=== PATIENT | female | born 1970 | race Caucasian/White ===

== ENCOUNTER 2016-08-09 11:46 | Observation (INO) | payer BC ==
[2016-08-09] MEDS ORDERED: HYDROmorphone 1 MG/ML 1 ML SYRINGE IVP STA (13:01)
[2016-08-09] MEDS ORDERED: ONDANSETRON 4 MG/2 ML VIAL IVP STA (13:01)
--- NOTE | 2016-08-09 13:03 | ED ---
General Adult HPI - General Chief complaint: Neck Pain/Injury Stated complaint: chest pain, neck pain Source: patient Mode of arrival: wheelchair Limitations: no limitations - History of Present Illness Initial comments: 46-year-old female with past medical history of Ulcerative colitis, kidney stones, right bundle branch block, bowel resection, cholecystectomy, hysterectomy, and ileostomy presented for evaluation of neck pain, left chest and back pain, and lower back pain. She states that she's been having these symptoms for the last 3 weeks and has had multiple evaluations by with her primary care physician and seen at [facility] without having a definitive diagnosis being obtained. She states her symptoms are worsened by movement and there are no alleviating factors. She describes itching in her chest as a pressure but the pain in her neck that goes down her arm is more shortness. She states her symptoms will wax and wane and that they're associated dizziness , lightheadedness, abdominal pain, nausea. She has not taken any medications to improve this although she was recently started on lisinopril for hypertension. - Related Data Home Medications Medication Instructions Recorded Confirmed Cetirizine HCl [Zyrtec] 10 mg PO DAILY 10/03/13 08/09/16 Albuterol Inhaler [Ventolin Hfa 1 - 2 puff INHALATION RT-Q6H PRN 04/28/14 Inhaler] Budesonide-Formot 160-4.5 Mcg 2 puff INHALATION RT-DAILY 04/28/14 08/09/16 [Symbicort 160-4.5 Mcg Inhaler] Fluticasone Propionate [Flonase 2 spray EA NOSTRIL DAILY PRN 06/18/14 08/09/16 Allergy Relief] Pravastatin Sodium [Pravachol] 40 mg PO DAILY 10/12/14 08/09/16 HYDROcodone/APAP 7.5-325MG [[place] 1 tab PO BID PRN 08/09/16 08/09/16 7.5-325] Lisinopril [Prinivil] 10 mg PO DAILY 08/09/16 08/09/16 Methocarbamol [Robaxin-750] 750 mg PO TID PRN 08/09/16 08/09/16 Multivitamin [Multivitamins Adult 2 tab PO DAILY 08/09/16 08/09/16 Gummies] Omeprazole [PriLOSEC] 20 mg PO DAILY 08/09/16 08/09/16 Ranitidine HCl [Zantac] 300 mg PO DAILY 08/09/16 08/09/16 metFORMIN HCL [Glucophage] 500 mg PO DAILY 08/09/16 08/09/16 Allergies Allergy/AdvReac Type Severity Reaction Status Date / Time adhesive Allergy Rash/Hives/ Verified 08/09/16 12:40 blisters aspirin Allergy SWELLING Verified 08/09/16 12:40 OF LIPS ibuprofen [From Motrin] Allergy ULCER IN J Verified 08/09/16 12:40 POUCH,DR TOLD NOT TO TAKE Iodinated Contrast Media - Allergy Dyspnea Verified 08/09/16 12:40 Oral and [Iodinated Contrast Media - IV Dye] lorazepam [From Ativan] Allergy Unknown Verified 08/09/16 12:40 Sulfa (Sulfonamide Allergy Rash/Hives Verified 08/09/16 12:40 Antibiotics) Review of Systems ROS Statement: Those systems with pertinent positive or pertinent negative responses have been documented in the HPI. ROS Other: All systems not noted in ROS Statement are negative. Constitutional: Denies: fever, chills Eyes: Denies: eye pain, eye discharge, vision change ENT: Denies: ear pain, throat pain, dental pain Respiratory: Denies: cough, dyspnea, wheezes Cardiovascular: Reports: chest pain. Denies: palpitations, dyspnea on exertion , orthopnea, edema, syncope, paroxysmal nocturnal dyspnea Gastrointestinal: Reports: abdominal pain, nausea, vomiting. Denies: diarrhea, constipation, hematemesis Genitourinary: Denies: urgency, dysuria, frequency, hematuria, discharge Musculoskeletal: Reports: back pain. Denies: arthralgia, myalgia Skin: Denies: rash, lesions Neurological: Denies: headache, weakness Psychiatric: Denies: anxiety, depression Hematological/Lymphatic: Denies: easy bleeding, easy bruising Past Medical History Additional Past Medical History / Comment(s): ulcerative colitis, kidney stones , right bundle branch block. Neck pain History of Any Multi-Drug Resistant Organisms: MRSA Date of last positivie culture/infection: december 2013 MDRO Source:: skin Past Surgical History: Bowel Resection, Cholecystectomy, Hysterectomy Additional Past Surgical History / Comment(s): j-pouch,right knee arthroscopy, ileostomy Past Anesthesia/Blood Transfusion Reactions: No Reported Reaction Past Psychological History: No Psychological Hx Reported Smoking Status: Former smoker Past Alcohol Use History: Occasional Past Drug Use History: None Reported - Past Family History Father Family Medical History: No Reported History Mother Family Medical History: Cancer General Exam Limitations: no limitations General appearance: alert, in distress Head exam: Present: atraumatic, normocephalic, normal inspection Eye exam: Present: normal appearance, PERRL, EOMI. Absent: scleral icterus, conjunctival injection, periorbital swelling ENT exam: Present: normal exam, mucous membranes moist Neck exam: Present: normal inspection. Absent: tenderness, meningismus, lymphadenopathy Respiratory exam: Present: normal lung sounds bilaterally. Absent: respiratory distress, wheezes, rales, rhonchi, stridor Cardiovascular Exam: Present: regular rate, normal rhythm, normal heart sounds. Absent: systolic murmur, diastolic murmur, rubs, gallop, clicks GI/Abdominal exam: Present: soft, tenderness (mild, diffuse), normal bowel sounds. Absent: distended, guarding, rebound, rigid Rectal exam: Present: deferred Extremities exam: Present: normal inspection, full ROM, normal capillary refill. Absent: tenderness, pedal edema, joint swelling, calf tenderness Back exam: Present: normal inspection Neurological exam: Present: alert, oriented X3, CN II-XII intact Psychiatric exam: Present: normal affect, normal mood Skin exam: Present: warm, dry, intact, normal color. Absent: rash Course Vital Signs 08/09/16 08/09/16 08/09/16 11:51 14:59 16:17 Temperature 97.7 F 98 F Pulse Rate 102 H 98 90 Respiratory 20 18 18 Rate Blood Pressure 139/81 120/65 120/66 O2 Sat by Pulse 98 100 99 Oximetry EKG Findings - EKG Comments: EKG Findings:: Sinus tachycardia with a ventricular rate of 104, [place] interval 134 , QRS 80, QT/QTC 332/436 Medical Decision Making - Medical Decision Making 46-year-old female presenting for evaluation of left neck pain with radiation to her left arm, chest, back, and from her lower back down her leg. She has been having these symptoms for the last few weeks and has been evaluated by her primary care physician and outside hospitals with no definitive diagnosis but also no significant cardiac work up. On physical examination she has clear lung sounds bilaterally and equal pulses bilaterally with a normal cardiac exam. Abdomen is soft and only mildly tender to palpation throughout all quadrants. Negative Spurling's test but she describes the pain is radicular going on her left arm. Concern for cardiac etiology and will obtain chest x-ray, EKG, labs and provide IV fluids. Aspirin will be withheld as she states she has an ALLERGY. Labs were significant for a lactic acidosis of 3.0 but otherwise no significant abnormalities. CT abdomen and pelvis showed extensive postsurgical changes with nonobstructing bilateral nephrolithiasis. Hepatomegaly and fatty protrusion of the liver also seen with degenerative changes within the spine. Chest x-ray showed no acute cardiopulmonary process. The patient was reevaluated and stated she was feeling much better but that her symptoms are starting to return. She is informed of results and that she would be admitted for further treatment and evaluation with likely stress test and echo in the morning. The patient agreed with this plan of care. Dr. Krishnamurthy was updated on the status of the patient and accepted the admission without further request. Admission order placed and bed request submitted. - Lab Data Result diagrams: 08/09/16 13:15 08/09/16 13:15 Lab Results 08/09/16 08/09/16 08/09/16 Range/Units 13:15 13:15 13:15 WBC 9.0 (3.8-10.6) k/uL RBC 4.41 (3.80-5.40) m/uL Hgb 14.0 (11.4-16.0) gm/dL Hct 42.2 (34.0-46.0) % MCV 95.6 (80.0-100.0) fL MCH 31.8 (25.0-35.0) pg MCHC 33.2 (31.0-37.0) g/dL RDW 12.9 (11.5-15.5) % Plt Count 312 (150-450) k/uL Neutrophils % 64 % Lymphocytes % 26 % Monocytes % 6 % Eosinophils % 1 % Basophils % 0 % Neutrophils # 5.8 (1.3-7.7) k/uL Lymphocytes # 2.4 (1.0-4.8) k/uL Monocytes # 0.5 (0-1.0) k/uL Eosinophils # 0.1 (0-0.7) k/uL Basophils # 0.0 (0-0.2) k/uL Sodium 143 (137-145) mmol/L Potassium 4.4 (3.5-5.1) mmol/L Chloride 104 (98-107) mmol/L Carbon Dioxide 22 (22-30) mmol/L Anion Gap 17 mmol/L BUN 14 (7-17) mg/dL Creatinine 0.60 (0.52-1.04) mg/dL Est GFR (MDRD) Af Amer >60 (>60 ml/min/1.73 sqM) Est GFR (MDRD) Non-Af >60 (>60 ml/min/1.73 sqM) Glucose 100 H (74-99) mg/dL Plasma Lactic Acid Dino 3.0 H* (0.7-2.0) mmol/L Calcium 10.2 (8.4-10.2) mg/dL Total Bilirubin 0.9 (0.2-1.3) mg/dL AST 41 H (14-36) U/L ALT 27 (9-52) U/L Alkaline Phosphatase 133 H (38-126) U/L Troponin I (0.000-0.034) ng/mL NT-Pro-B Natriuret Pep pg/mL Total Protein 8.7 H (6.3-8.2) g/dL Albumin 4.6 (3.5-5.0) g/dL Lipase 113 (23-300) U/L 08/09/16 08/09/16 Range/Units 13:15 13:15 WBC (3.8-10.6) k/uL RBC (3.80-5.40) m/uL Hgb (11.4-16.0) gm/dL Hct (34.0-46.0) % MCV (80.0-100.0) fL MCH (25.0-35.0) pg MCHC (31.0-37.0) g/dL RDW (11.5-15.5) % Plt Count (150-450) k/uL Neutrophils % % Lymphocytes % % Monocytes % % Eosinophils % % Basophils % % Neutrophils # (1.3-7.7) k/uL Lymphocytes # (1.0-4.8) k/uL Monocytes # (0-1.0) k/uL Eosinophils # (0-0.7) k/uL Basophils # (0-0.2) k/uL Sodium (137-145) mmol/L Potassium (3.5-5.1) mmol/L Chloride (98-107) mmol/L Carbon Dioxide (22-30) mmol/L Anion Gap mmol/L BUN (7-17) mg/dL Creatinine (0.52-1.04) mg/dL Est GFR (MDRD) Af Amer (>60 ml/min/1.73 sqM) Est GFR (MDRD) Non-Af (>60 ml/min/1.73 sqM) Glucose (74-99) mg/dL Plasma Lactic Acid Dino (0.7-2.0) mmol/L Calcium (8.4-10.2) mg/dL Total Bilirubin (0.2-1.3) mg/dL AST (14-36) U/L ALT (9-52) U/L Alkaline Phosphatase (38-126) U/L Troponin I <0.012 (0.000-0.034) ng/mL NT-Pro-B Natriuret Pep <11 pg/mL Total Protein (6.3-8.2) g/dL Albumin (3.5-5.0) g/dL Lipase (23-300) U/L Disposition Clinical Impression: Chest pain, Cervical radiculopathy Disposition: ADMITTED IP TO THIS [facility] Referrals: Yiemy Monson MD [Primary Care Provider] - 1-2 days Decision to Admit Reason: Admit from EC Decision Date: 08/09/16 Decision Time: 16:00
[2016-08-09 13:28] LABS: Basophils % (A) 0 %; CH 32.7; CHCM 34.3; Eosinophils # (A) 0.1 k/uL (0-0.7); Eosinophils % (A) 1 %; HCT 42.2 % (34.0-46.0); HDW 2.65; Luc # (Auto) 0.27; Luc % (Auto) 3; Lymphocytes # (A) 2.4 k/uL (1.0-4.8); Lymphocytes % (A) 26 %; MCH 31.8 pg (25.0-35.0); MCHC 33.2 g/dL (31.0-37.0); MCV 95.6 fL (80.0-100.0); Mean Platelet Volume 6.5; Monocytes # (A) 0.5 k/uL (0-1.0); Monocytes % (A) 6 %; Neutrophils # (A) 5.8 k/uL (1.3-7.7); Neutrophils % (A) 64 %; RBC 4.41 m/uL (3.80-5.40); RDW 12.9 % (11.5-15.5); WBC (Perox) 8.18
[2016-08-09 13:42] LABS: ALT 27 U/L (9-52); AST 41 U/L (14-36); Alkaline Phosphatase 133 U/L (38-126); Anion Gap 17 mmol/L; Blood Urea Nitrogen 14 mg/dL (7-17); Calcium 10.2 mg/dL (8.4-10.2); Carbon Dioxide 22 mmol/L (22-30); Chloride 104 mmol/L (98-107); Glucose 100 mg/dL (74-99); Non-African American GFR(MDRD) >60 (>60 ml/min/1.73 sqM); Potassium 4.4 mmol/L (3.5-5.1); Sodium 143 mmol/L (137-145); Total Bilirubin 0.9 mg/dL (0.2-1.3); Total Protein 8.7 g/dL (6.3-8.2)
--- NOTE | 2016-08-09 14:09 | XR ---
EXAMINATION TYPE: XR chest 2V DATE OF EXAM: 08/09/2016 2:03 PM COMPARISON: 05/10/13 HISTORY: Chest pain TECHNIQUE: Frontal and lateral views of the chest are obtained. FINDINGS: There is no focal air space opacity. No evidence for pnuemothorax.No pleural effusion. The cardiac silhouette size is within normal limits. The osseous structures are grossly intact. IMPRESSION: 1. No acute cardiopulmonary process.
--- NOTE | 2016-08-09 14:30 | CT ---
EXAMINATION TYPE: CT abdomen pelvis wo con DATE OF EXAM: 08/09/2016 1:56 PM COMPARISON: Prior study dated 06/18/2014. HISTORY: Patient complains of midline abdominal burning and pain. Epigastric to umbilicus. CT DLP: 1151 mGycm Automated exposure control for dose reduction was used. FINDINGS: There is dependent atelectasis within the lungs. There is no pleural or pericardial fluid. The heart is not enlarged. Within the abdomen, the liver is enlarged measuring 22.4 cm. The liver is fatty infiltrated. The gall bladder is been removed. The spleen is unremarkable. Both adrenal glands appear normal. There is a 2 mm, nonobstructing calculus in the anterior lower pole calyx of the left kidney. There i s a larger, 5.8 mm nonobstructing calculus in the mid polar region of the right kidney as well as a s econd 5.6 mm calculus which appears to be in the left renal pelvis. There is no hydronephrosis. Limited views of the pancreas are unremarkable. There is no significant retroperitoneal, iliac or inguinal adenopathy. There've been several bowel resections. There is a defunctioning ostomy in the right upper quadrant. There is a right paracentral anterior abdominal wall hernia with some bowel peaking into it. The mout h measures 3.4 cm. There is no bowel dilatation. There is no evidence of free fluid or free air. There is degenerative d isc disease and hypertrophic spondylosis within the spine. No bony destructive lesion is seen. IMPRESSION: 1. EXTENSIVE POSTSURGICAL CHANGE. 2. NONOBSTRUCTING BILATERAL NEPHROLITHIASIS. 3. HEPATOMEGALY AND FATTY INFILTRATION OF THE LIVER. 4. DEGENERATIVE CHANGES WITHIN THE SPINE.
[2016-08-09] MEDS ORDERED: SODIUM CHLORIDE 0.9% 1,000 ML IV ONE (14:33)
[2016-08-09] MEDS ORDERED: NALOXONE 0.4 MG/ML 1 ML VIAL IV PRN (15:54)
[2016-08-09] MEDS ORDERED: FLUTICASONE 50MCG/SPRAY NASAL 16GM EA NOSTRIL PRN (15:56)
[2016-08-09] MEDS: MORPHINE SULFATE 4 MG/ML SYRINGE IV PRN ×2 (16:14→20:12)
[2016-08-09] MEDS: ONDANSETRON 4 MG/2 ML VIAL IVP PRN (16:14)
[2016-08-09 17:40] LABS: Glucose,Whole Blood 104 mg/dL (75-99)
[2016-08-09 20:06] LABS: Glucose,Whole Blood 104 mg/dL (75-99)
[2016-08-09] MEDS: SODIUM CHLORIDE 0.9% 1,000 ML IV SCH (20:14)
[2016-08-10] MEDS ORDERED: ALPRAZolam 0.25 MG TAB PO PRN (00:08)
[2016-08-10] MEDS ORDERED: TEMAZEPAM 15 MG CAP PO PRN (00:08)
[2016-08-10] MEDS ORDERED: ALBUTEROL NEBULIZED 2.5 MG/3 ML INHALATION PRN (00:15)
[2016-08-10] MEDS: HYDROmorphone 1 MG/ML 1 ML SYRINGE IVP PRN ×5 (00:35→19:25)
[2016-08-10] MEDS: ONDANSETRON 4 MG/2 ML VIAL IVP PRN ×2 (00:36→15:32)
[2016-08-10] MEDS: PIPERACILLIN-TAZOBACTAM 3.375 GM in DEXTROSE/WATER 1 50ML.BAG IVPB SCH ×3 (00:47→15:36)
[2016-08-10 01:06] LABS: Creatine Kinase 55 U/L (30-135)
[2016-08-10 01:19] LABS: Creatine Kinase MB 0.3 ng/mL (0.0-2.4); Troponin I <0.012 ng/mL (0.000-0.034)
[2016-08-10] MEDS ORDERED: ALBUTEROL INHALER 60 PUFF/8 GM INHALER INHALATION SCH (02:00)
[2016-08-10 03:43] LABS: Appearance,Urine Clear (Clear); Bacteria,Urine Rare /hpf; Bilirubin,Urine Negative (Negative); Glucose,Urine (UA) Negative (Negative); Ketones,Urine Negative (Negative); Leukocyte Esterase,Urine Negative (Negative); Mucus,Urine Few /hpf; Nitrite,Urine Negative (Negative); PH, Urine 5.5 (5.0-8.0); Particle Count 7295; Protein,Urine Trace (Negative); RBC,Urine 4 /hpf (0-5); Squamous Epithelial Cell,Urine 3 /hpf (0-4); UA Billing (MACRO vs. MICRO) MICRO; Urobilinogen,Urine <2.0 mg/dL (<2.0); WBC,Urine 6 /hpf (0-5)
[2016-08-10 07:08] LABS: Glucose,Whole Blood 131 mg/dL (75-99)
[2016-08-10] MEDS: SYMBICORT 160-4.5 MCG INHALER INHALATION SCH (08:44)
[2016-08-10] MEDS ORDERED: FAMOTIDINE 20 MG TAB PO SCH (09:00)
--- NOTE | 2016-08-10 09:34 | P.CRDCN ---
History of Present Illness Consult date: 08/10/16 History of present illness: This is a 46-year-old female with history of diabetes and hypercholesterolemia who is been having recurrent left upper chest pain, neck pain and also pain down the left arm intermittently. Patient also has been having issues with the blood pressure fluctuating. Apparently she has been in the emergency room to 3 times because of these symptoms. Recently she was started on antihypertensive medication. However, yesterday patient again had similar pain, which is under the left clavicle area, followed by neck pain and left arm pain. The pain increases on deep breathing. Doesn't seem to be related to movements of the arm. She does have history of cervical disc disease. Her EKGs did not reveal any acute changes. Her cardiac enzymes studies are negative. Her chest pains appear to be atypical and probably musculoskeletal. I would recommend further evaluation of the computed tomography scan of the neck of the chest. I would proceed with an Lexiscan stress test, probably on Friday to rule out underlying ischemic heart disease. Echocardiogram is already done and the results are pending at this time Review of Systems As per the chart Past Medical History Past Medical History: Asthma, Cancer, Diabetes Mellitus, GERD/Reflux, Hyperlipidemia, Hypertension, Osteoarthritis (OA), Sleep Apnea/CPAP/BIPAP Additional Past Medical History / Comment(s): ulcerative colitis, kidney stones , right bundle branch block. Neck pain History of Any Multi-Drug Resistant Organisms: MRSA Date of last positivie culture/infection: december 2013 MDRO Source:: skin Past Surgical History: Bowel Resection, Cholecystectomy, Hysterectomy Additional Past Surgical History / Comment(s): j-pouch,right knee arthroscopy, ileostomy Past Anesthesia/Blood Transfusion Reactions: No Reported Reaction Past Psychological History: No Psychological Hx Reported Additional Psychological History / Comment(s): pt lives with spouse. has no steps to navigate. pt is independant. 1 pet dog. has nebulizer, cpap machine and ostomy supplies. Smoking Status: Former smoker Past Alcohol Use History: Occasional Additional Past Alcohol Use History / Comment(s): started smoking 1987, quit 1994 smoked 1/2 ppd Past Drug Use History: None Reported - Past Family History Father Family Medical History: No Reported History Mother Family Medical History: Cancer Additional Family Medical History / Comment(s): cervical cancer Medications and Allergies Home Medications Medication Instructions Recorded Confirmed Type Cetirizine HCl [Zyrtec] 10 mg PO DAILY 10/03/13 08/09/16 History Albuterol Inhaler [Ventolin Hfa 1 - 2 puff INHALATION RT-Q6H PRN 04/28/14 History Inhaler] Budesonide-Formot 160-4.5 Mcg 2 puff INHALATION RT-DAILY 04/28/14 08/09/16 History [Symbicort 160-4.5 Mcg Inhaler] Fluticasone Propionate [Flonase 2 spray EA NOSTRIL DAILY PRN 06/18/14 08/09/16 History Allergy Relief] Pravastatin Sodium [Pravachol] 40 mg PO DAILY 10/12/14 08/09/16 History HYDROcodone/APAP 7.5-325MG [[place] 1 tab PO BID PRN 08/09/16 08/09/16 History 7.5-325] Lisinopril [Prinivil] 10 mg PO DAILY 08/09/16 08/09/16 History Methocarbamol [Robaxin-750] 750 mg PO TID PRN 08/09/16 08/09/16 History Multivitamin [Multivitamins Adult 2 tab PO DAILY 08/09/16 08/09/16 History Gummies] Omeprazole [PriLOSEC] 20 mg PO DAILY 08/09/16 08/09/16 History Ranitidine HCl [Zantac] 300 mg PO DAILY 08/09/16 08/09/16 History metFORMIN HCL [Glucophage] 500 mg PO DAILY 08/09/16 08/09/16 History Allergies Allergy/AdvReac Type Severity Reaction Status Date / Time adhesive Allergy Rash/Hives/ Verified 08/09/16 12:40 blisters aspirin Allergy SWELLING Verified 08/09/16 12:40 OF LIPS ibuprofen [From Motrin] Allergy ULCER IN J Verified 08/09/16 12:40 DR MELISA TOLD NOT TO TAKE Iodinated Contrast Media - Allergy Dyspnea Verified 08/09/16 12:40 Oral and [Iodinated Contrast Media - IV Dye] lorazepam [From Ativan] Allergy Unknown Verified 08/09/16 12:40 Sulfa (Sulfonamide Allergy Rash/Hives Verified 08/09/16 12:40 Antibiotics) Physical Exam Vitals: Vital Signs Temp Pulse Pulse Resp BP BP Pulse Ox 08/10/16 07:22 97.9 F 80 16 127/62 94 L 05/13/17 04:00 80 16 08/10/16 03:47 97.8 F 86 18 100/55 94 L 08/09/16 23:25 86 18 08/09/16 23:23 91 18 131/74 96 08/09/16 20:00 92 18 08/09/16 19:46 98.4 F 99 18 133/67 95 08/09/16 17:59 98.7 F 97 16 158/91 96 08/09/16 16:17 98 F 90 18 120/66 99 Intake and Output 08/09/16 08/10/16 08/10/16 22:59 06:59 14:59 Intake Total 400 110 Balance 400 110 Intake: Intake, IV Titration 110 Amount Piperacillin-Tazobactam 3 50 .375 gm In Dextrose/Water 1 50ml.bag @ 12.5 mls/hr IVPB Q8HR DOMI Rx#: [id number] Sodium Chloride 0.9% 1, 60 000 ml @ 20 mls/hr IV . Q24H DOMI Rx#:[id number] Oral 400 Other: # Voids 2 2 GENERAL EXAM: Patient is alert and oriented and doesn't appear to be in any acute distress HEENT: Normocephalic. Normal reaction of pupils, equal size, normal range of extraocular motion. No erythema or exudates in the throat. NECK: No masses, no nuchal rigidity. CHEST: No chest wall deformity. Mild tenderness in the left upper chest and also in the neck area LUNGS: Equal air entry with no crackles or wheeze. HEART: S1 and S2 normal with no audible mumurs or gallops. Regular rhythm, femorals equal on both sides.. ABDOMEN: No hepatosplenomegaly, normal bowel sounds, no guarding or rigidity. SKIN: No rashes CENTRAL NERVOUS SYSTEM: No focal deficits. EXTREMITIES: No cyanosis, clubbing or edema. Results 08/09/16 13:15 08/09/16 13:15 Cardiac Enzymes 08/09/16 08/10/16 Range/Units 19:16 00:39 CK-MB (CK-2) 0.3 (0.0-2.4) ng/mL Troponin I <0.012 <0.012 (0.000-0.034) ng/mL Current Medications Generic Name Dose Route Start Last Admin Trade Name Freq PRN Reason Stop Dose Admin Hydrocodone Bitart/Acetaminophen 1 each 08/10/16 00:08 [place] 5-325 PO Q6HR PRN Pain Albuterol Sulfate 2.5 mg 08/10/16 00:15 Ventolin Nebulized INHALATION RT-Q4H PRN Shortness Of Breath Or Wheezing Alprazolam 0.25 mg 08/10/16 00:08 Xanax PO TID PRN Anxiety Budesonide/Formoterol Fumarate 2 puff 08/10/16 08:00 08/10/16 08:44 Symbicort 160-4.5 Mcg Inhaler INHALATION 2 puff RT-DAILY DOMI Administration Fluticasone Propionate 2 spray 08/09/16 15:56 Flonase Nasal [place] EA NOSTRIL DAILY PRN ALLERGIES Heparin Sodium (Porcine) 5,000 unit 08/10/16 09:00 Heparin SQ Q12HR DOMI Hydromorphone HCl 0.5 mg 08/10/16 00:08 08/10/16 06:01 Dilaudid IVP 0.5 mg Q4HR PRN Administration Severe Pain Sodium Chloride 1,000 mls @ 20 mls/hr 08/09/16 16:00 08/09/16 20:14 Saline 0.9% IV Not Given .Q24H DOMI Piperacillin/Tazobactam/ 50 mls @ 12.5 mls/hr 08/10/16 00:15 08/10/16 08:01 Dextrose 3.375 gm/ IV Solution IVPB 12.5 mls/hr Q8HR DOMI Administration Lisinopril 10 mg 08/10/16 09:00 Zestril PO DAILY [facility] Loratadine 10 mg 08/10/16 09:00 Claritin PO DAILY [facility] Metformin HCl 500 mg 08/10/16 09:00 Glucophage PO DAILY [facility] Methocarbamol 750 mg 08/09/16 15:56 Robaxin PO TID PRN Pain Naloxone HCl 0.2 mg 08/09/16 15:54 Narcan IV Q2M PRN Opioid Reversal Ondansetron HCl 4 mg 08/09/16 15:54 08/10/16 00:36 Zofran IVP 4 mg Q8HR PRN Administration Nausea And Vomiting Pantoprazole Sodium 40 mg 08/10/16 07:30 Protonix PO AC-BRKFST [facility] Pravastatin Sodium 40 mg 08/10/16 09:00 Pravachol PO DAILY [facility]I Temazepam 15 mg 08/10/16 00:08 08/10/16 00:44 Restoril PO 15 mg HS PRN Administration Insomnia Intake and Output 08/09/16 08/10/16 08/10/16 22:59 06:59 14:59 Intake Total 400 110 Balance 400 110 Intake: Intake, IV Titration 110 Amount Piperacillin-Tazobactam 3 50 .375 gm In Dextrose/Water 1 50ml.bag @ 12.5 mls/hr IVPB Q8HR [facility]I Rx#: [id number] Sodium Chloride 0.9% 1, 60 000 ml @ 20 mls/hr IV . Q24H DOMI Rx#:[id number] Oral 400 Other: # Voids 2 2 EKG Interpretations (text) Sinus rhythm without any acute changes Assessment and Plan (1) Diabetes mellitus Status: Acute (2) Cervical radiculopathy Status: Acute (3) Chest pain Status: Acute (4) Hypercholesterolemia Status: Acute Plan: Her chest pains appear to be atypical. Her cardiac enzymes are negative and her EKGs are normal. Patient, however, have risk factors of diabetes and hypercholesterolemia. I'm going to schedule her for a Lexiscan stress test on Friday. Echocardiogram is already done. May need a computed tomography scan of the neck and chest to rule out any muscular skeletal issues. Further recommendations depend upon the findings on the above tests.
[2016-08-10] MEDS: LISINOPRIL 10 MG TAB PO SCH (10:48)
[2016-08-10] MEDS: PRAVASTATIN SODIUM 40 MG TAB PO SCH (10:48)
[2016-08-10] MEDS: metFORMIN 500 MG TAB PO SCH (10:48)
[2016-08-10] MEDS: PANTOPRAZOLE 40 MG TABLET PO SCH (10:48)
[2016-08-10] MEDS: LORATADINE 10 MG TAB PO SCH (10:48)
[2016-08-10] MEDS: HEPARIN SODIUM,PORCINE 5,000 UNIT/ML 1 ML VIAL SQ SCH ×2 (10:50→20:22)
--- NOTE | 2016-08-10 11:51 | P.GSCN ---
History of Present Illness Consult date: 08/10/16 Reason for Consult: Abnormal computed tomography scan ventral hernia. Abdominal discomfort. Requesting physician: Hilario Krishnamurthy History of present illness: Thank you very much Dr. Krishnamurthy for asking us to see this patient. She is a 46- year-old white female who was admitted with the chest neck and back pain now for 3 weeks off and on. She has had workup the as an outpatient by primary care physician as well as the emergency room at [facility]. She presented again with increasing symptoms last night to the emergency room. Has had some associated lightheadedness dizziness and some upper abdominal discomfort. No definite nausea or vomiting but some nausea. Computed tomography scan was unremarkable except for a parastomal hernia that was not incarcerated. No evidence of obstruction or dilated bowel loops. Patient has had multiple abdominal surgeries including multiple bowel resections in ileostomy as well as a J pouch procedure for ulcerative colitis. Also has had hysterectomy and cholecystectomy. Chronic back pain diabetes mellitus hypertension hypercholesterolemia asthma. Also reflux disease. Medications as listed. ALLERGIES multiple ALLERGIES as listed. System review as above. Ileostomy is functioning well on a daily basis. No fever or chills. No urinary symptoms currently. Social history patient denies smoking. The drinks alcohol very occasionally. On examination the patient is awake alert in no acute distress. With a BMI of 44.1. Color and hydration is satisfactory temperature is normal vitals are good. The color and hydration is satisfactory. Heart regular rhythm abdomen is obese. The midline incision noted. Has a ileostomy in the right upper quadrant area. This is functioning well. No definite palpable hernia but difficult to evaluate because of perforated. Certainly no tenderness in this area. May have some mild epigastric tenderness. No guarding or rebound or rigidity no mass or organomegaly and no hernias in the midline on the left side. [employer] grossly intact. Impression ventral parastomal hernia by computed tomography scan asymptomatic. No evidence of obstruction. No significant intra-abdominal pathology to explain her chest in the back and neck pain. Recommendation continue her normal diet. Further workup per medicine. Nothing surgical to offer at this time. Past Medical History Past Medical History: Asthma, Cancer, Diabetes Mellitus, GERD/Reflux, Hyperlipidemia, Hypertension, Osteoarthritis (OA), Sleep Apnea/CPAP/BIPAP Additional Past Medical History / Comment(s): ulcerative colitis, kidney stones , right bundle branch block. Neck pain History of Any Multi-Drug Resistant Organisms: MRSA Year Discovered:: december 2013 MDRO Source:: skin Past Surgical History: Bowel Resection, Cholecystectomy, Hysterectomy Additional Past Surgical History / Comment(s): j-pouch,right knee arthroscopy, ileostomy Past Anesthesia/Blood Transfusion Reactions: No Reported Reaction Past Psychological History: No Psychological Hx Reported Additional Psychological History / Comment(s): pt lives with spouse. has no steps to navigate. pt is independant. 1 pet dog. has nebulizer, cpap machine and ostomy supplies. Smoking Status: Former smoker Past Alcohol Use History: Occasional Additional Past Alcohol Use History / Comment(s): started smoking 1987, quit 1994 smoked 1/2 ppd Past Drug Use History: None Reported - Past Family History Father Family Medical History: No Reported History Mother Family Medical History: Cancer Additional Family Medical History / Comment(s): cervical cancer Medications and Allergies Home Medications Medication Instructions Recorded Confirmed Type Cetirizine HCl [Zyrtec] 10 mg PO DAILY 10/03/13 08/09/16 History Albuterol Inhaler [Ventolin Hfa 1 - 2 puff INHALATION RT-Q6H PRN 04/28/14 History Inhaler] Budesonide-Formot 160-4.5 Mcg 2 puff INHALATION RT-DAILY 04/28/14 08/09/16 History [Symbicort 160-4.5 Mcg Inhaler] Fluticasone Propionate [Flonase 2 spray EA NOSTRIL DAILY PRN 06/18/14 08/09/16 History Allergy Relief] Pravastatin Sodium [Pravachol] 40 mg PO DAILY 10/12/14 08/09/16 History HYDROcodone/APAP 7.5-325MG [[place] 1 tab PO BID PRN 08/09/16 08/09/16 History 7.5-325] Lisinopril [Prinivil] 10 mg PO DAILY 08/09/16 08/09/16 History Methocarbamol [Robaxin-750] 750 mg PO TID PRN 08/09/16 08/09/16 History Multivitamin [Multivitamins Adult 2 tab PO DAILY 08/09/16 08/09/16 History Gummies] Omeprazole [PriLOSEC] 20 mg PO DAILY 08/09/16 08/09/16 History Ranitidine HCl [Zantac] 300 mg PO DAILY 08/09/16 08/09/16 History metFORMIN HCL [Glucophage] 500 mg PO DAILY 08/09/16 08/09/16 History Allergies Allergy/AdvReac Type Severity Reaction Status Date / Time adhesive Allergy Rash/Hives/ Verified 08/09/16 12:40 blisters aspirin Allergy SWELLING Verified 08/09/16 12:40 OF LIPS ibuprofen [From Motrin] Allergy ULCER IN J Verified 08/09/16 12:40 POUCH,DR TOLD NOT TO TAKE Iodinated Contrast Media - Allergy Dyspnea Verified 08/09/16 12:40 Oral and [Iodinated Contrast Media - IV Dye] lorazepam [From Ativan] Allergy Unknown Verified 08/09/16 12:40 Sulfa (Sulfonamide Allergy Rash/Hives Verified 08/09/16 12:40 Antibiotics) Surgical - Exam Vital Signs Temp Pulse Resp BP Pulse Ox 97.7 F 102 H 20 139/81 98 08/09/16 11:51 08/09/16 11:51 08/09/16 11:51 08/09/16 11:51 08/09/16 11:51 Results - Labs 08/09/16 13:15 08/09/16 13:15 Abnormal Lab Results - Last 24 Hours (Table) 08/09/16 08/09/16 08/10/16 Range/Units 17:34 20:00 00:39 ESR 25 H (0-20) mm/hr POC Glucose (mg/dL) 104 H 104 H (75-99) mg/dL C-Reactive Protein (<10.0) mg/L Urine Protein (Negative) Urine Blood (Negative) Urine WBC (0-5) /hpf Urine Bacteria (None) /hpf Hyaline Casts (0-2) /lpf Urine Mucus (None) /hpf Urine Opiates Screen (NotDetected) U Benzodiazepines Scrn (NotDetected) 08/10/16 08/10/16 08/10/16 Range/Units 00:39 03:15 07:07 ESR (0-20) mm/hr POC Glucose (mg/dL) 131 H (75-99) mg/dL C-Reactive Protein 13.8 H (<10.0) mg/L Urine Protein Trace H (Negative) Urine Blood Trace H (Negative) Urine WBC 6 H (0-5) /hpf Urine Bacteria Rare H (None) /hpf Hyaline Casts 9 H (0-2) /lpf Urine Mucus Few H (None) /hpf Urine Opiates Screen Detected H (NotDetected) U Benzodiazepines Scrn Detected H (NotDetected)
[2016-08-10 11:55] LABS: Glucose,Whole Blood 122 mg/dL (75-99)
--- NOTE | 2016-08-10 13:38 | HP ---
DATE OF ADMISSION: 08/09/2016 CHIEF COMPLAINT: Neck pain, shoulder pain, abdominal discomfort. HISTORY OF PRESENT ILLNESS: This 46-year-old woman with a past medical of extremely complex medical issues including ulcerative colitis at the age of 19 who had a total colectomy in [facility] with J-pouch in 1994, was doing well since 5 years ago. Subsequently patient developed apparent stenosis and patient a year ago the patient underwent ileostomy. Plans for reversal have been planned at [facility] at this time. In the meanwhile, for the last several weeks, the patient has been to the emergency room at [facility] several times, at least 4 or 5 times according to her, with almost similar complaints of left shoulder pain, left neck pain, left arm pain, some tingling and numbness, and with elevated blood pressure. After the blood pressure was controlled, the patient was discharged. Because of the recurrent symptoms the patient came to [facility] and was admitted for further evaluation and treatment. The patient is reported as small like a throbbing and sharp pain, occasionally with some radiation. There is no history of fevers or rigors. No headache, loss of consciousness or seizures. The patient is also complaining of diffuse abdominal discomfort also. The patient came to [facility] for further evaluation and treatment. As mentioned earlier, the patient had obstruction and stenosis previously. CT scan of the abdomen was done and showed extensive postsurgical changes and nonobstructing bilateral hydronephrosis and hepatomegaly with fatty infiltration as well as degenerative joint disease of the spine also. There is no history of any fevers, rigors, loss of consciousness. No hematochezia or melena at this time. PAST MEDICAL HISTORY: Asthma, diabetes mellitus, GERD, hypertension, hyperlipidemia, history of DJD, history of right bundle branch block, history of MRSA, history of cholecystectomy, history of fistula in the surgical site. HOME MEDICATIONS: 1. Multivitamins 1 p.o. daily. 2. Robaxin 750 mg t.i.d. p.r.n. 3. Symbicort 4.5, 2 puffs daily. 4. Glucophage 500 mg p.o. daily. 5. Zantac 300 mg daily p.r.n. 6. Prilosec 20 mg p.o. daily. 7. Prinivil 10 mg p.o. daily. 8. Pravachol 40 mg daily. 9. [place] 7.5 b.i.d. p.r.n. 10. Flonase 2 sprays daily p.r.n. 12. Ventolin HFA 1 to 2 puffs every 6 p.r.n. ALLERGIES: ASPIRIN, IBUPROFEN, IODINATED CONTRAST, SULFA. FAMILY HISTORY: History of cervical cancer in the family. SOCIAL HISTORY: The patient gives a history of previous smoking. Occasional alcohol intake. REVIEW OF SYSTEMS: ENT: No diminishing hearing. No diminished vision. CARDIOVASCULAR: As mentioned. RESPIRATORY: No cough. GI: As mentioned earlier. : As mentioned earlier. NERVOUS SYSTEM: As mentioned earlier. MUSCULOSKELETAL: As mentioned earlier. HEMATOLOGY/ONCOLOGY: As mentioned. ENDOCRINE: As mentioned. CONSTITUTIONAL: As mentioned. DERMATOLOGY: Negative. RHEUMATOLOGIC: Negative. PHYSICAL EXAMINATION: GENERAL: Alert, oriented x3. Pulse 99, blood pressure 130/60, respirations 18, temperature 98.4, pulse ox 94% on room air. HEENT: Conjunctivae normal. Oral mucosa moist. NECK: No jugular venous distention. No carotid bruit. No lymph node enlargement. No thyroid enlargement. CARDIOVASCULAR: S1 and S2. No S3 or S4. RESPIRATORY: Breath sounds diminished at the bases. A few scattered rhonchi and expiratory wheezing. No crackles. ABDOMEN: Soft, obese, mild diffuse discomfort on palpation. No guarding. No mass palpable. Ileostomy present on right side middle. SKIN: Rashes from EKGS leads present. EXTREMITIES: No edema, no swelling. NERVOUS SYSTEM: Higher functions as mentioned. Moves all limbs equally. No focal motor or sensory deficits. LYMPHATICS: No lymph nodes palpable in the neck, axillae. SKIN: No rashes. LABS: CBC within normal limits. Glucose 100, 104. Plasma lactic acid 3. Alk phos 133. ASSESSMENT: 1. Left shoulder pain as well as an neck pain and left arm pain; rule out coronary artery disease. 2. Rule out musculoskeletal problems/issues. 3. Diffuse abdominal pain, for evaluation. 4. Elevated lactic acid; rule out abdominal sepsis. 5. History of recent ileostomy. 6. History of J-pouch stenosis. 7. History of total subcolectomy for ulcerative colitis. 8. History of asthma. 9. History of diabetes type 2. 10. Gastroesophageal reflux disease. 11. Chronic intermittent asthma. 12. Hypertension. 13. Hyperlipidemia. 14. History of degenerative joint disease. 15. History of sleep apnea, on CPAP. 16. History of nephrolithiasis. 17. History of right bundle block. 18. History of methicillin-resistant staphylococcus aureus. 19. History of bowel resection. 20. History of nicotine dependence. 21. History of chronic headaches. 22. History of obesity, body mass index of 44.1. 23. FULL CODE. RECOMMENDATIONS: In this 46-year-old woman who presented with multiple complex medical issues as mentioned. At this time I recommend to continue current medications and current treatment. Otherwise recommend rule out myocardial infarction unstable angina protocol. Otherwise closely follow with cardiology. Repeat troponins. Also recommend a 2-D echo also. Other than that, I would recommend repeat labs, including ESR and CRP and cultures. Broad-spectrum IV antibiotics will be initiated after obtaining cultures. A surgical evaluation is being requested as well as cardiology evaluation. Overall prognosis guarded because of multiple complex medical issues as mentioned earlier. Discussed with the patient at length. Further recommendations to follow. See orders for further details. DAVIDD
[2016-08-10 13:51] LABS: Hemoglobin A1C 6.1 % (4.2-6.1)
[2016-08-10] MEDS: HYDROcodone/APAP 5-325MG 1 EACH TAB PO PRN (14:29)
[2016-08-10] MEDS: SODIUM CHLORIDE 0.9% 1,000 ML IV SCH (16:56)
[2016-08-10] MEDS: METHOCARBAMOL 750 MG TAB PO PRN (17:07)
[2016-08-10 17:08] LABS: Glucose,Whole Blood 122 mg/dL (75-99)
--- NOTE | 2016-08-10 17:32 | CT ---
EXAMINATION TYPE: CT cervical spine wo con DATE OF EXAM: 08/10/2016 5:08 PM COMPARISON: NONE HISTORY: Neck pain that radiates into left shoulder and chest. CT DLP: 1406.3 mGycm Automated exposure control for dose reduction was used. TECHNIQUE: CT scan of the cervical spine is obtained without contrast, axial images are obtained, sa gittal and coronal reformatted images are also reviewed. FINDINGS: There is moderate mucosal thickening in the maxillary sinuses. The skull base is intact. Th ere is normal aeration of the mastoid air cells. There is mild straightening of the cervical spine that is probably positional. Disc spaces are normal . Posterior elements are intact. Facet joints are intact. There is no sign of a fracture. IMPRESSION: Normal CT scan of the cervical spine. Maxillary sinusitis.
--- NOTE | 2016-08-10 17:36 | CT ---
EXAMINATION TYPE: CT chest wo con DATE OF EXAM: 08/10/2016 5:08 PM COMPARISON: NONE HISTORY: Neck pain that radiates into left shoulder and chest. CT DLP: 1406.3 mGycm Automated exposure control for dose reduction was used. FINDINGS: The lungs are clear of consolidation. There is no pleural effusion. There is no evidence of a pulmona ry mass. There is mild subsegmental atelectasis at the lung bases. Heart size is normal. There is no pericardial effusion. There is no mediastinal adenopathy. There are no hilar masses. There is evidence of fatty infiltration of the liver. Bony thorax appears intact. IMPRESSION: FATTY INFILTRATION OF THE LIVER. NEGATIVE CT SCAN OF THE CHEST. RIGHT UPPER QUADRANT STOMA NOTED WITH PARASTOMAL HERNIA THAT IS EVIDENT ALSO ON THE CT SCAN YESTERDAY.
[2016-08-10 20:13] LABS: Glucose,Whole Blood 138 mg/dL (75-99)
[2016-08-10] MEDS ORDERED: HYDROcodone/APAP 5-325MG 1 EACH TAB ONE (21:50)
[2016-08-11] MEDS: PIPERACILLIN-TAZOBACTAM 3.375 GM in DEXTROSE/WATER 1 50ML.BAG IVPB SCH ×4 (01:15→23:32)
[2016-08-11] MEDS: HYDROmorphone 1 MG/ML 1 ML SYRINGE IVP PRN ×5 (01:36→20:58)
[2016-08-11 06:37] LABS: Basophils % (A) 0 %; CH 32.7; CHCM 33.5; Eosinophils % (A) 1 %; HCT 39.3 % (34.0-46.0); HDW 2.59; HGB 13.1 gm/dL (11.4-16.0); Luc # (Auto) 0.16; Luc % (Auto) 3; Lymphocytes # (A) 1.8 k/uL (1.0-4.8); Lymphocytes % (A) 34 %; MCH 32.5 pg (25.0-35.0); MCHC 33.2 g/dL (31.0-37.0); MCV 97.9 fL (80.0-100.0); Mean Platelet Volume 6.6; Monocytes # (A) 0.4 k/uL (0-1.0); Monocytes % (A) 8 %; Neutrophils # (A) 2.8 k/uL (1.3-7.7); Neutrophils % (A) 54 %; RBC 4.02 m/uL (3.80-5.40); RDW 12.9 % (11.5-15.5); WBC 5.2 k/uL (3.8-10.6)
[2016-08-11 07:02] LABS: Glucose,Whole Blood 124 mg/dL (75-99)
[2016-08-11 07:21] LABS: Anion Gap 12 mmol/L; Blood Urea Nitrogen 22 mg/dL (7-17); Calcium 9.8 mg/dL (8.4-10.2); Carbon Dioxide 25 mmol/L (22-30); Chloride 104 mmol/L (98-107); Glucose 116 mg/dL (74-99); Non-African American GFR(MDRD) >60 (>60 ml/min/1.73 sqM); Potassium 4.9 mmol/L (3.5-5.1); Sodium 141 mmol/L (137-145)
[2016-08-11] MEDS: SYMBICORT 160-4.5 MCG INHALER INHALATION SCH (07:39)
[2016-08-11] MEDS: LORATADINE 10 MG TAB PO SCH (08:16)
[2016-08-11] MEDS: LISINOPRIL 10 MG TAB PO SCH (08:16)
[2016-08-11] MEDS: metFORMIN 500 MG TAB PO SCH (08:16)
[2016-08-11] MEDS: PRAVASTATIN SODIUM 40 MG TAB PO SCH (08:16)
[2016-08-11] MEDS: PANTOPRAZOLE 40 MG TABLET PO SCH (08:16)
[2016-08-11] MEDS: HEPARIN SODIUM,PORCINE 5,000 UNIT/ML 1 ML VIAL SQ SCH ×2 (08:16→21:56)
--- NOTE | 2016-08-11 09:21 | ECHOF ---
Referral Reason:chf MEASUREMENTS -------- HEIGHT: 165.1 cm WEIGHT: 120.2 kg BP: 130/600 IVSd: 1.1 cm (0.6 - 1.1) LVIDd: 4.0 cm (3.9 - 5.3) LVPWd: 0.9 cm (0.6 - 1.1) LVIDs: 2.6 cm LA Diam: 3.3 cm (2.7 - 3.8) RVIDd: 3.0 cm (< 3.3) Ao Diam: 3.3 cm (2.0 - 3.7) LA Diam: 3.3 cm (2.7 - 3.8) AV Cusp: 1.5 cm (1.5 - 2.6) EPSS: 0.5 cm MV E Shane: 0.70 m/s MV DecT: 179 ms MV A Shane: 0.71 m/s MV E/A Ratio: 0.99 RAP: 5.00 mmHg RVSP: 14.95 mmHg MV EF SLOPE: 69.01 mm/s (70 - 150) MV EXCURSION: 16.40 mm (> 18.000) FINDINGS -------- Sinus rhythm. This was a technically adequate study. Morbid Obesity There is borderline concentric left ventricular hypertrophy. Overall left ventricular systolic function is normal with, an EF between 55 - 60 %. The right ventricle is normal in size. The left atrial size is normal. The right atrial size is normal. The aortic valve is trileaflet, and appears structurally normal. No aortic stenosis or regurgitation. Mild mitral regurgitation is present. Mild tricuspid regurgitation present. There is no evidence of pulmonary hypertension. The right ventricular systolic pressure, as measured by Doppler, is 14.95mmHg. There is no pulmonic regurgitation present. The aortic root size is normal. There is no pericardial effusion. CONCLUSIONS -------- 1. There is borderline concentric left ventricular hypertrophy. 2. Overall left ventricular systolic function is normal with, an EF between 55 - 60 %. 3. Mild mitral regurgitation is present. 4. Mild tricuspid regurgitation present. 5. There is no evidence of pulmonary hypertension. 6. The right ventricular systolic pressure, as measured by Doppler, is 14.95mmHg. [employer]NAGER: Raquel Najera RDCS
--- NOTE | 2016-08-11 11:23 | P.PN ---
Progress Note - Text The Patient the better today she was able to get some sleep last night the with the hypnotic. Denies any abdominal pain. Chest occasional slight nausea. Tolerated diet. Continues with the neck and upper chest pain. On examination she is afebrile. Vitals are stable. Abdomen is somewhat obese. Ileostomy is functioning well. Well-healed midline scar. No significant tenderness. No mass or organomegaly. Impression history of the inflammatory bowel disease status post the subtotal colectomy with the ileoanal pouch with stenosis and subsequent the ileostomy. History of per small bowel fistulas. Parastomal hernia asymptomatic at this time. Nothing surgical in the abdomen at this time. Recommendation continued medical management. CT of the neck did show some maxillary sinusitis.
[2016-08-11 11:51] LABS: Glucose,Whole Blood 124 mg/dL (75-99)
--- NOTE | 2016-08-11 13:49 | PN ---
DATE OF SERVICE: 08/10/2016 This 46-year-old woman who was admitted with left shoulder pain as well as neck pain also had significant abdominal pain also. The patient also had elevated lactic acid. Empirically treated with antibiotics. Patient improved significantly. Cardiology and as well as Surgery is following the patient closely. The patient complains of neck pain also. The patient is complaining of low chest pain also at this time. PAST MEDICAL HISTORY: Reviewed. REVIEW OF SYSTEMS: CARDIOVASCULAR: As mentioned earlier. RESPIRATORY: As mentioned earlier. GI: As mentioned earlier. : No dysuria. NERVOUS SYSTEM: No numbness or weakness. Current medications are reviewed and include: 1. [place] 5 mg q.6 p.r.n. 2. Ventolin 2.5 q.4 p.r.n. 3. Xanax 0.25 t.i.d. 5. Symbicort 160/4.5, 2 puffs b.i.d. 6. Flonase. 7. Heparin 5000 subcu b.i.d. 8. Dilaudid 0.5 mg q.4. 9. Zestril 10 mg daily. 10. Claritin 10 mg daily. 11. Glucophage 500 mg p.o. daily. 12. Robaxin 75 mg t.i.d. 13. Narcan 0.2 q.2 p.r.n. 14. Zofran 4 mg q.8 p.r.n. 15. Protonix 40 mg with breakfast. 16. Zosyn 3.275 IV q.8 17. Pravachol 40 mg p.o. daily. 19. Restoril 50 mg q.h.s. p.r.n. PHYSICAL EXAMINATION: Patient is alert and oriented x2. Pulse is 86, blood pressure 106/58 respirations 18, temperature 98.8, pulse ox 94% on room air. HEENT: Conjunctivae normal. NECK: No jugular venous distention. CARDIOVASCULAR: S1 and S2. RESPIRATORY: Breath sounds diminished at the bases. A few scattered rhonchi. No crackles. ABDOMEN: Soft, mild diffuse discomfort. Ileostomy present. No guarding. No rigidity. No mass palpable. LEGS: No edema, no swelling. NERVOUS SYSTEM: Higher function as mentioned. Moves all four limbs. No focal motor deficits. LYMPHATIC: No lymphadenopathy in the neck, axillae or groin. SKIN: No ulcer, rash or bleeding. LABS: UA noted. Drug screen positive for opiates and benzodiazepines. Otherwise, glucose 131 and 122 and ESR is 25 and CRP is 13.8. The normal is less than 10. ASSESSMENT: 1. Left shoulder pain as well as neck pain and left arm pain rule out coronary artery disease, rule out musculoskeletal problems. 2. Diffuse abdominal pain for evaluation. 3. Elevated lactic acid, rule out abdominal sepsis. 4. History of recent ileostomy. 5. History J post stenosis. 6. History of subtotal colectomy for ulcerative colitis. 7. History of asthma. 8. History of diabetes type 2. 9. History of gastroesophageal reflux disease. 10. Chronic intermittent asthma. 11. Hypertension, essential. 12. Hyperlipidemia. 13. History of degenerative joint disease. 14. History of sleep apnea on CPAP. 15. Possible cervical degenerative joint disease. 16. History of nephrolithiasis. 17. History of right bundle block. 18. History of methicillin-resistant Staphylococcus aureus. 19. History of bowel resection. 20. History of nicotine dependence. 21. History of chronic headaches. 22. History of obesity, body mass index of 44.1. 23. FULL CODE. RECOMMENDATIONS AND DISCUSSION: I recommend to continue the current medications, continue monitoring and symptomatic treatment. I recommend CT scan of the chest and as well as neck also. Otherwise, continue to monitor. Repeat lactic acid also. Further recommendations to follow. MTDD
[2016-08-11] MEDS: ONDANSETRON 4 MG/2 ML VIAL IVP PRN (14:30)
[2016-08-11 16:50] LABS: Glucose,Whole Blood 102 mg/dL (75-99)
[2016-08-11] MEDS: SODIUM CHLORIDE 0.9% 1,000 ML IV SCH (17:15)
[2016-08-11 20:16] LABS: Glucose,Whole Blood 121 mg/dL (75-99)
[2016-08-11] MEDS: METHOCARBAMOL 750 MG TAB PO PRN (22:36)
[2016-08-11] MEDS: HYDROcodone/APAP 5-325MG 1 EACH TAB PO PRN (23:40)
[2016-08-12 05:13] VITALS: RESP 18
[2016-08-12] MEDS: ONDANSETRON 4 MG/2 ML VIAL IVP PRN (05:22)
[2016-08-12] MEDS: HYDROmorphone 1 MG/ML 1 ML SYRINGE IVP PRN (05:22)
[2016-08-12 07:03] LABS: Glucose,Whole Blood 120 mg/dL (75-99)
[2016-08-12] MEDS: SYMBICORT 160-4.5 MCG INHALER INHALATION SCH (07:43)
[2016-08-12 08:11] LABS: Basophils % (A) 0 %; CH 32.9; Eosinophils % (A) 1 %; HCT 39.4 % (34.0-46.0); HDW 2.65; HGB 13.2 gm/dL (11.4-16.0); Luc # (Auto) 0.21; Luc % (Auto) 4; Lymphocytes # (A) 1.5 k/uL (1.0-4.8); Lymphocytes % (A) 30 %; MCH 32.5 pg (25.0-35.0); MCHC 33.4 g/dL (31.0-37.0); MCV 97.3 fL (80.0-100.0); Mean Platelet Volume 6.3; Monocytes # (A) 0.3 k/uL (0-1.0); Monocytes % (A) 7 %; Neutrophils # (A) 2.9 k/uL (1.3-7.7); Neutrophils % (A) 58 %; RBC 4.05 m/uL (3.80-5.40); RDW 12.8 % (11.5-15.5); WBC (Perox) 4.76
--- NOTE | 2016-08-12 08:52 | PN ---
DATE OF SERVICE: 08/11/2016 This 46-year-old woman was admitted with left shoulder pain also had abdominal pain. The patient also has extensive history of ulcerative colitis and surgery also. Some of the features also suggestive of Crohn's disease also. Patient . No chest pain, no palpitations. No fever. On exam, alert and oriented x3. Pulse is 87, blood pressure 119/64, respirations 18, temperature 98.2, pulse ox 94% on room air. HEENT: Conjunctivae normal. NECK: No jugular venous distention. CARDIOVASCULAR: S1 and S2, muffled. RESPIRATORY: Breath sounds diminished at the bases. No rhonchi, no crackles. ABDOMEN: Soft, nontender. No mass palpable. LEGS: No edema, no swelling. NERVOUS SYSTEM: No focal motor deficits. LAB INVESTIGATIONS: CBC within normal limits. Glucose 116. ASSESSMENT: 1. Left shoulder pain as well as neck pain and left arm pain, rule out coronary artery disease and rule out musculoskeletal pain. 2. Diffuse abdominal pain for evaluation. 3. Elevated lactic acid present on admission, improved. 4. History of recent ileostomy. 5. History of J pouch stenosis. 6. History of subtotal colectomy for ulcerative colitis. 7. History of asthma. 8. Possible Crohn's disease. 9. History of diabetes mellitus type 2. 10. History of gastroesophageal reflux disease. 11. Chronic intermittent asthma. 12. Hypertension, essential. 13. Hyperlipidemia. 14. History of degenerative joint disease. 15. History of sleep apnea on CPAP. 16. Cervical degenerative joint disease. 17. History of nephrolithiasis. 18. History of right bundle branch block on electrocardiogram. 19. History of methicillin-resistant Staphylococcus aureus. 20. History of bowel resection. 21. History of nicotine dependence. 22. History of chronic headaches. 23. Obesity with body mass index of 44.1. 24. FULL CODE. RECOMMENDATIONS AND DISCUSSION: I recommend to continue the current medications, continue monitoring and symptomatic treatment. Will continue the rest of the medications. Cardiology is performing a stress test tomorrow. Closely follow with surgery. I would also recommend follow-up closely with [facility] regarding the possibility of Crohn's disease versus ulcerative colitis because of the multiple symptomatology and the possibility of fistulous formation also. The patient may be candidate for if proven to be one of those cases. Otherwise, prognosis guarded. Further recommendations to follow. MTDD
[2016-08-12] MEDS ORDERED: REGADENOSON 0.4 MG/5 ML SYRINGE IV ONE (09:00)
[2016-08-12] MEDS ORDERED: AMINOPHYLLINE 500 MG/20 ML VIAL IV PRN (09:00)
[2016-08-12 09:11] LABS: Anion Gap 11 mmol/L; Blood Urea Nitrogen 17 mg/dL (7-17); Calcium 9.5 mg/dL (8.4-10.2); Carbon Dioxide 25 mmol/L (22-30); Chloride 104 mmol/L (98-107); Glucose 120 mg/dL (74-99); Non-African American GFR(MDRD) >60 (>60 ml/min/1.73 sqM); Potassium 4.6 mmol/L (3.5-5.1); Sodium 140 mmol/L (137-145)
[2016-08-12] MEDS: PIPERACILLIN-TAZOBACTAM 3.375 GM in DEXTROSE/WATER 1 50ML.BAG IVPB SCH (10:34)
[2016-08-12] MEDS: metFORMIN 500 MG TAB PO SCH (10:35)
[2016-08-12] MEDS: PANTOPRAZOLE 40 MG TABLET PO SCH (10:35)
[2016-08-12] MEDS: LORATADINE 10 MG TAB PO SCH (10:35)
[2016-08-12] MEDS: LISINOPRIL 10 MG TAB PO SCH (10:35)
[2016-08-12] MEDS: HEPARIN SODIUM,PORCINE 5,000 UNIT/ML 1 ML VIAL SQ SCH (10:35)
[2016-08-12] MEDS: PRAVASTATIN SODIUM 40 MG TAB PO SCH (10:36)
[2016-08-12] MEDS: HYDROcodone/APAP 5-325MG 1 EACH TAB PO PRN (10:50)
--- NOTE | 2016-08-12 11:30 | NM ---
EXAMINATION TYPE: NM stress lexiscan cardiolite DATE OF EXAM: 08/12/2016 11:13 AM COMPARISON: NONE HISTORY: 46-year-old female with chest pain TECHNIQUE: After the intravenous administration of 10.98 mCi Tc 99m Sestamibi - Cardiolite resting S PECT images acquired 45 minutes post injection. The patient received 0.4mg Lexiscan, 27.5 mCi Tc 99m Sestamibi - Stress images obtained [address] injection FINDINGS: During the exam, the technologist makes note of shortness of breath and chest pain which eventually r esolves. Review of stress and rest SPECT images demonstrates no distinct perfusion abnormality. Gated analysi s shows normal wall motion with an estimated left ventricular ejection fraction of 62 %. TID is calc ulated at 1.07, within normal limits. IMPRESSION: No scintigraphic evidence for reversible ischemia.
[2016-08-12 11:42] VITALS: BP 119/76; PULSE 91; TEMP 98.5
[2016-08-12 12:15] LABS: Glucose,Whole Blood 150 mg/dL (75-99)
--- NOTE | 2016-08-12 12:52 | EST ---
DATE OF SERVICE: 08/12/16. AGE: 46Y SEX: F HT: 5'5" WT: 265 lbs. Protocol Arron: Other: X Stage: Dur. of Exercise: *Heart Rate Blood Pressure *Rest: 96 Rest: 142/69 * *Max. Achieved: 121 Maximum BP: 172/96 85% PMHR: 147 100% PMHR: 173 *METS: INDICATIONS: MEDICATIONS: The test is being done to evaluate chest pains. Stress data: Baseline EKG showed sinus rhythm with normal SD interval and QRS duration. A standard dose of Lexiscan was infused. EKGs did not reveal any significant changes from the baseline. FINAL IMPRESSION: 1. Negative Lexiscan stress test. 2. Report on the nuclear images to begin with radiologist.
--- NOTE | 2016-08-14 19:15 | DS ---
DATE OF ADMISSION: 08/09/2016 DATE OF DISCHARGE: 08/12/2016 FINAL DIAGNOSES: 1. Left shoulder pain as well as neck and left arm pain, possibly musculoskeletal, with a negative stress test. 2. Diffuse abdominal pain, improved. 3. Elevated lactic acid, present on admission, improved. 4. History of recent ileostomy. 5. History of J pouch stenosis. 6. History of subtotal colectomy for possible ulcerative colitis. 7. History of asthma. 8. Rule out Crohn's disease. 9. History of diabetes mellitus, type 2. 10. History of gastroesophageal reflux disease. 11. History of chronic intermittent asthma. 12. Hypertension, essential. 13. Hyperlipidemia. 14. History of degenerative joint disease. 15. Sleep apnea, on CPAP. 16. Cervical degenerative joint disease. 17. History of nephrolithiasis. 18. History of right bundle branch block on EKG. 19. History of methicillin-resistant Staphylococcus aureus. 20. History of bowel resection. 21. History of nicotine dependence. 22. History of chronic headaches. 23. Obesity; body mass index 44.1. 24. FULL CODE. DISCHARGE DISPOSITION: The patient will be discharged in stable condition with guarded prognosis. Discharge cleared by multiple consultants. HISTORY OF PRESENT ILLNESS: This 46-year-old woman with a past medical history of multiple medical problems, as mentioned earlier, being followed by Dr. Monson in the outpatient setting, was admitted with left shoulder pain, neck pain, arm pain as well as abdominal pain. Patient was treated symptomatically. Antibiotics were also given. The patient had a stress test by Cardiology and improved significantly. On exam, vitals are stable. CARDIOVASCULAR SYSTEM: S1, S2 muffled. ABDOMEN: Soft, non-tender. NERVOUS SYSTEM: No focal deficit. Surgery saw the patient. Multiple CT scans were also done, including cervical spine and chest CT scan. I recommend that the patient follow up closely with Dr. Monson as well as patient's primary senior principal in [facility] regarding the above-mentioned multiple medical issues D/C meds please refer to medication reconcialation.. MTDD
== END 2016-08-12 15:58 | disposition home or self-care (01) ==
LOC: EC 11:46 → 3OBS 15:54 → 3SUR 19:33 → 3OBS 08-12 07:48
PROVIDERS: ADMIT Hospitalist; ATTEND Hospitalist
DX: M25.512 Pain in left shoulder (principal); M54.2 Cervicalgia; M79.602 Pain in left arm; R10.10 Upper abdominal pain, unspecified; E87.2 Acidosis; R07.89 Other chest pain; Z98.0 Intestinal bypass and anastomosis status; J45.20 Mild intermittent asthma, uncomplicated; E11.9 Type 2 diabetes mellitus without complications; K21.9 Gastro-esophageal reflux disease without esophagitis; I10 Essential (primary) hypertension; E78.5 Hyperlipidemia, unspecified; M47.22 Other spondylosis with radiculopathy, cervical region; Z99.89 Dependence on other enabling machines and devices; G47.30 Sleep apnea, unspecified; Z87.442 Personal history of urinary calculi; I45.10 Unspecified right bundle-branch block; Z86.14 Personal history of Methicillin resistant Staphylococcus aureus infection; Z87.891 Personal history of nicotine dependence; R51 Headache; E78.00 Pure hypercholesterolemia, unspecified; E66.9 Obesity, unspecified; K43.5 Parastomal hernia without obstruction or gangrene; Z68.41 Body mass index [BMI] 40.0-44.9, adult; Z79.51 Long term (current) use of inhaled steroids; Z79.899 Other long term (current) drug therapy; Z79.84 Long term (current) use of oral hypoglycemic drugs; Z88.6 Allergy status to analgesic agent; Z91.041 Radiographic dye allergy status; Z88.2 Allergy status to sulfonamides; Z88.8 Allergy status to other drugs, medicaments and biological substances; Z91.048 Other nonmedicinal substance allergy status; Z80.49 Family history of malignant neoplasm of other genital organs; G89.29 Other chronic pain
CPT/HCPCS: 96375 ×3; 96365; 96366 ×3; 96372 ×3; 96376 ×5; 96361; 99285; 36415; 94640 ×4; 93005; 93017; 93306; 83880; 80053; 80048 ×2; 85652; 83036; 82550; 82553; 83605 ×2; 83690; 84484 ×2; 85025 ×3; 86140; 81001; 87040; 80306; 87086; 71020; 72125; 71250; 74176; 78452; G0378 ×4; A9500; J2270; J1644 ×3; J2405 ×4; J1170 ×4; J2543 ×3; J2785

== ENCOUNTER 2016-09-30 07:24 | Day surgery (SDC) | payer BC ==
[2016-09-26 11:08] VITALS: BMI 43.1
[~2016-09-30 07:24] MED LIST: LACTATED RINGERS 1,000 ML IV SCH
[2016-09-30 07:47] VITALS: RESP 20; TEMP 97.1
[2016-09-30 07:51] LABS: Glucose,Whole Blood 127 mg/dL (75-99)
[2016-09-30] MEDS ORDERED: PROPOFOL 10 MG/ML 20 ML VIAL IV ONE (08:45)
[2016-09-30 09:12] VITALS: PULSE 86
[2016-09-30 09:31] VITALS: BP 130/82
--- NOTE | 2016-09-30 16:13 | P.PCN ---
Date of Procedure: 09/30/16 Preoperative Diagnosis: Postoperative Diagnosis: Procedure(s) Performed: Procedure: Lower endoscopy and biopsy. 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 Postoperative diagnosis: 1. Stenosis at the ileoanal anastomosis effectively dilated with the digital rectal examinations and with the passing of the endoscope. 2. Mild pouchitis. 3. Small bowel shows no obvious abnormalities. 4. Biopsies were obtained from the small bowel and pouch. Preparation: Liquid diet and laxatives. Sedation: Was provided by anesthesia. Brief clinical history: The patient is a 46-year-old female who had total proctocolectomy with ileoanal anastomosis more than 20 years ago for ulcerative colitis. She has done well and remained off medications till around 3-1/2 years ago when she had strictures at the ileoanal anastomosis that required dilation. She was hospitalized multiple times because of progressive decrease in her rectal output and rectal pain as well as distention of the ileal pouch on CT of the abdomen. 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 The patient continued to have issues with postprandial pains and in July of this year presented with significant dilation of her pouch that prompted referral to [facility] where she had a diverting ileostomy. The patient came to see me in the office recently for evaluation of her pouchitis and anal stricture in anticipation of reversal of her ileostomy. Procedure: With the patient on her left lateral decubitus position and after informed consent and adequate sedation, the perianal area was inspected and it did not show any fissures or fistulas. On digital rectal examination I was able to feel the area of the ileoanal anastomosis. It felt stenotic. I performed the digital rectal examination in a progressive way initially using the little finger then the index finger after which I passed the endoscope thus effectively dilating the stricture. I then inserted the Olympus PCFQ 180AL video colonoscope into the ileal pouch. I then advanced the endoscope into the small bowel to a significant distance. The small bowel appeared healthy. The ileal pouch showed erythema and edema of the mucosa but no definite ulcers or erosions. I obtained biopsies in the small intestine and in the ileal pouch then I retroflexed the endoscope before the endoscope was withdrawn. There was some oozing of blood at the ileo-anal anastomosis secondary to the trauma of dilation. Disposition: The patient tolerated the procedure well. Plan: The patient was briefed regarding the findings on this exam. I would await pathology results. The question would again be as to whether she needs to be back on specific treatment for inflammatory bowel disease and whether she should be considered for biologic therapy. I will update you on her progress . Implants: Indications for Procedure: Operative Findings: Description of Procedure:
== END 2016-09-30 10:06 | disposition home or self-care (01) ==
LOC: ORWHC2ENDO 07:24
DX: K62.4 Stenosis of anus and rectum (principal); K63.89 Other specified diseases of intestine; K91.850 Pouchitis; Z87.19 Personal history of other diseases of the digestive system; Z90.49 Acquired absence of other specified parts of digestive tract; J45.909 Unspecified asthma, uncomplicated; E11.9 Type 2 diabetes mellitus without complications; K21.9 Gastro-esophageal reflux disease without esophagitis; I10 Essential (primary) hypertension; G47.33 Obstructive sleep apnea (adult) (pediatric); M19.90 Unspecified osteoarthritis, unspecified site; Z79.51 Long term (current) use of inhaled steroids; Z79.899 Other long term (current) drug therapy; Z79.84 Long term (current) use of oral hypoglycemic drugs; Z88.2 Allergy status to sulfonamides; Z88.8 Allergy status to other drugs, medicaments and biological substances; Z88.6 Allergy status to analgesic agent; Z91.041 Radiographic dye allergy status
CPT/HCPCS: 88305; 45380; J2704

== ENCOUNTER 2017-05-23 11:39 | Observation (INO) | payer BC ==
[2017-05-23] MEDS ORDERED: SODIUM CHLORIDE 0.9% 1,000 ML IV STA (13:35)
[2017-05-23] MEDS ORDERED: ONDANSETRON 4 MG/2 ML VIAL IVP STA (13:35)
[2017-05-23] MEDS ORDERED: HYDROmorphone 0.5 MG/0.5 ML SYRINGE IVP STA ×2 (13:35→16:29)
--- NOTE | 2017-05-23 14:00 | ED ---
General Adult HPI - General Chief complaint: Abdominal Pain Stated complaint: stoma site pain and swelling Time Seen by Provider: 05/23/17 13:07 Source: patient, RN notes reviewed Mode of arrival: ambulatory Limitations: no limitations - History of Present Illness Initial comments: 46 yo female presents to the ER with cc of of abdominal pain. Patient states that she has a stoma due to some enlarged test times in the past. She states that it's been more enlarged and swollen and she's having abdominal pain that radiates to the back. Patient states when on for about 3 days. Patient states there is been no high fevers. She has had some nausea. Patient states her stools been loose. She states she just feels very bloated and she feels that this stoma is swollen and protruding. She denies any high fevers with this. She states that she's had this stoma placed at [facility] due to some unusual inflammatory change in her small bowel. She states that she was concerned because it just seems to be getting worse and she becoming more and more painful so she thought that she should be seen. Patient denies any recent fever, chills, shortness of breath, chest pain, back pain, numbness or tingling , dysuria or hematuria, headaches or visual changes, or any other current symptoms. - Related Data Home Medications Medication Instructions Recorded Confirmed Cetirizine HCl [Zyrtec] 10 mg PO DAILY 10/03/13 05/23/17 Albuterol Inhaler [Ventolin Hfa 1 - 2 puff INHALATION RT-Q6H PRN 04/28/14 Inhaler] Budesonide-Formot 160-4.5 Mcg 2 puff INHALATION RT-DAILY PRN 04/28/14 05/23/17 [Symbicort 160-4.5 Mcg Inhaler] Multivitamins, Thera [Multivitamin 1 tab PO DAILY 05/23/17 05/23/17 (formulary)] Allergies Allergy/AdvReac Type Severity Reaction Status Date / Time adhesive Allergy Rash/Hives/ Verified 05/23/17 13:28 blisters aspirin Allergy SWELLING Verified 05/23/17 13:28 OF LIPS ibuprofen [From Motrin] Allergy ULCER IN J Verified 05/23/17 13:28 DR MELISA TOLD NOT TO TAKE Iodinated Contrast- Oral and Allergy Dyspnea Verified 05/23/17 13:28 IV Dye [Iodinated Contrast Media - IV Dye] lorazepam [From Ativan] Allergy Unknown Verified 05/23/17 13:28 Sulfa (Sulfonamide Allergy Rash/Hives Verified 05/23/17 13:28 Antibiotics) Review of Systems ROS Statement: Those systems with pertinent positive or pertinent negative responses have been documented in the HPI. ROS Other: All systems not noted in ROS Statement are negative. Past Medical History Past Medical History: Asthma, Cancer, Diabetes Mellitus, GERD/Reflux, Hyperlipidemia, Hypertension, Osteoarthritis (OA), Sleep Apnea/CPAP/BIPAP Additional Past Medical History / Comment(s): ulcerative colitis, kidney stones , right bundle branch block. Neck pain, CPAP History of Any Multi-Drug Resistant Organisms: MRSA Date of last positivie culture/infection: AUGUST 2015 MDRO Source:: SURGICAL SITE (ILEOSTOMY) Past Surgical History: Bowel Resection, Cholecystectomy, Hysterectomy Additional Past Surgical History / Comment(s): TOTAL COLECTOMY WITH j-pouch 1994 ,right knee arthroscopy, ileostomy. RECENT RT KIDNEY STENT 09/16/16 FOR KIDNEY STONES Past Anesthesia/Blood Transfusion Reactions: No Reported Reaction Past Psychological History: No Psychological Hx Reported Smoking Status: Former smoker Past Alcohol Use History: None Reported Past Drug Use History: None Reported - Past Family History Father Family Medical History: No Reported History Mother Family Medical History: Cancer Additional Family Medical History / Comment(s): cervical cancer General Exam - General Exam Comments Initial Comments: General: The patient is awake and alert, in no distress, and does not appear acutely ill. Eye: Pupils are equal, round and reactive to light. Ears, nose, mouth and throat: There are moist mucous membranes. Neck: The neck is supple, there is no tenderness. Cardiovascular: There is a regular rate and rhythm. No murmur, rub or gallop is appreciated. Respiratory: Lungs are clear to auscultation, respirations are non-labored, breath sounds are equal. No wheezes, stridor, rales, or rhonchi. Gastrointestinal: stoma site does have some swelling and erythema around the area. Soft, distended, non-tender abdomen without masses or organomegaly noted. There is no rebound or guarding present. No CVA tenderness. Bowel sounds are unremarkable. Back: There is no tenderness to palpation in the midline. There is no obvious deformity. No rashes noted. Musculoskeletal: Normal ROM, no tenderness, There is no pedal edema. There is no calf tenderness or swelling. Sensation intact. Pulses equal bilaterally 2+. Neurological: CN II-XII intact, There are no obvious motor or sensory deficits. Coordination appears grossly intact. Speech is normal. Skin: Skin is warm and dry and no rashes or lesions are noted. Psychiatric: Cooperative, appropriate mood & affect, normal judgment. Limitations: no limitations Course Vital Signs 05/23/17 12:01 Temperature 97.3 F L Pulse Rate 90 Respiratory 18 Rate Blood Pressure 132/78 O2 Sat by Pulse 100 Oximetry Medical Decision Making - Medical Decision Making 46-year-old female presents for abdominal pain. At this time patient's lab work is been reviewed as well as CAT scan. At this time patient is showing possible enteritis. She continues to have abdominal pain and continues to have nausea. At this time there is concerned due to the patient's significant health history along with the distention of her abdomen that this could be something more serious. At this time we will put her on a clear liquid diet and we will start the patient on pain meds and nausea meds. Patient's doctor for reevaluation. Patient is in agreement this plan all questions have been answered. Patient will be admitted at this time. Dr. Javed spoke with Dr. Bhatt is agreement. - Lab Data Result diagrams: 05/23/17 14:05 05/23/17 14:05 Lab Results 05/23/17 05/23/17 Range/Units 14:05 14:05 WBC 6.7 (3.8-10.6) k/uL RBC 3.88 (3.80-5.40) m/uL Hgb 12.3 (11.4-16.0) gm/dL Hct 38.8 (34.0-46.0) % MCV 100.1 H (80.0-100.0) fL MCH 31.7 (25.0-35.0) pg MCHC 31.6 (31.0-37.0) g/dL RDW 12.8 (11.5-15.5) % Plt Count 353 (150-450) k/uL Neutrophils % 61 % Lymphocytes % 32 % Monocytes % 6 % Eosinophils % 0 % Basophils % 0 % Neutrophils # 4.1 (1.3-7.7) k/uL Lymphocytes # 2.1 (1.0-4.8) k/uL Monocytes # 0.4 (0-1.0) k/uL Eosinophils # 0.0 (0-0.7) k/uL Basophils # 0.0 (0-0.2) k/uL Sodium 142 (137-145) mmol/L Potassium 4.6 (3.5-5.1) mmol/L Chloride 106 (98-107) mmol/L Carbon Dioxide 25 (22-30) mmol/L Anion Gap 11 mmol/L BUN 15 (7-17) mg/dL Creatinine 0.50 L (0.52-1.04) mg/dL Est GFR (MDRD) Af Amer >60 (>60 ml/min/1.73 sqM) Est GFR (MDRD) Non-Af >60 (>60 ml/min/1.73 sqM) Glucose 83 (74-99) mg/dL Calcium 9.7 (8.4-10.2) mg/dL Total Bilirubin 0.6 (0.2-1.3) mg/dL AST 20 (14-36) U/L ALT 15 (9-52) U/L Alkaline Phosphatase 115 (38-126) U/L Total Protein 7.8 (6.3-8.2) g/dL Albumin 4.2 (3.5-5.0) g/dL Amylase 76 (30-110) U/L Lipase 97 (23-300) U/L - Radiology Data Radiology results: report reviewed, image reviewed Disposition Clinical Impression: Enteritis, Intractable abdominal pain, Intractable nausea and vomiting Disposition: ADMITTED IP TO THIS [facility] Condition: Stable Referrals: Yeimy Monson MD [Primary Care Provider] - 1-2 days Decision Date: 05/23/17 Decision Time: 16:31
[2017-05-23 14:14] LABS: Basophils % (A) 0 %; Eosinophils % (A) 0 %; HCT 38.8 % (34.0-46.0); HGB 12.3 gm/dL (11.4-16.0); Lymphocytes # (A) 2.1 k/uL (1.0-4.8); Lymphocytes % (A) 32 %; MCH 31.7 pg (25.0-35.0); MCHC 31.6 g/dL (31.0-37.0); MCV 100.1 fL (80.0-100.0); Mean Platelet Volume 6.1; Monocytes # (A) 0.4 k/uL (0-1.0); Monocytes % (A) 6 %; Neutrophils # (A) 4.1 k/uL (1.3-7.7); Neutrophils % (A) 61 %; Platelet Count 353 k/uL (150-450); RBC 3.88 m/uL (3.80-5.40); RDW 12.8 % (11.5-15.5); WBC 6.7 k/uL (3.8-10.6)
[2017-05-23 14:30] LABS: ALT 15 U/L (9-52); AST 20 U/L (14-36); Albumin 4.2 g/dL (3.5-5.0); Alkaline Phosphatase 115 U/L (38-126); Amylase 76 U/L (30-110); Anion Gap 11 mmol/L; Blood Urea Nitrogen 15 mg/dL (7-17); Calcium 9.7 mg/dL (8.4-10.2); Carbon Dioxide 25 mmol/L (22-30); Chloride 106 mmol/L (98-107); Glucose 83 mg/dL (74-99); Lipase 97 U/L (23-300); Potassium 4.6 mmol/L (3.5-5.1); Sodium 142 mmol/L (137-145); Total Bilirubin 0.6 mg/dL (0.2-1.3); Total Protein 7.8 g/dL (6.3-8.2)
--- NOTE | 2017-05-23 14:58 | CT ---
EXAMINATION TYPE: CT abdomen pelvis wo con DATE OF EXAM: 05/23/2017 COMPARISON: Prior dated 08/09/2016 CT abdomen pelvis HISTORY: Swelling and pain around stoma site. CT DLP: 1137 mGycm Automated exposure control for dose reduction was used. TECHNIQUE: Helical acquisition of images from the lung bases through the pelvis. FINDINGS: Lack of contrast may compromise sensitivity LUNG BASES: No significant abnormality is appreciated. AORTA: No significant abnormality is appreciated. LIVER/GB: The liver shows low attenuation likely due to hepatic steatosis, patient is post cholecyste ctomy. The liver is enlarged. PANCREAS: No significant abnormality is seen. SPLEEN: No significant abnormality is seen. ADRENALS: No significant abnormality is seen. KIDNEYS: Nonobstructive calculus present at the lower pole of the left kidney is punctate, measures o nly 1 to 2 mm. No ureteral calcification evident. REPRODUCTIVE ORGANS: Absent URINARY BLADDER: No significant abnormality is seen. BOWEL: Postop changes are noted at the sigmoid colon level. There is right lower quadrant ostomy sit e with peristomal hernia, bowel loops within the subcutaneous fat. No evident bowel obstruction. Surg ical clips also present in the small bowel at this level. Patient is status post colectomy. There is thickening of small bowel loops with luminal fluid. FREE AIR: No Free Air is visible. ASCITES: None visible. PELVIC ADENOPATHY: None visualized. RETROPERITONEAL ADENOPATHY: No Retroperitoneal Adenopathy visible. OSSEOUS STRUCTURES: Degenerative disc disease is present in the visualized spine especially at the l umbosacral junction, lumbar spine. Abdominal wall hernia in the right lower quadrant contains a bowel loop without evident bowel obstruc tion. IMPRESSION: NONCONTRAST EXAM. CORRELATE FOR ENTERITIS. POSTOP CHANGES. HEPATIC STEATOSIS, HEPATOMEGALY. NONOBSTRU CTIVE LEFT NEPHROLITHIASIS.
[2017-05-23] MEDS ORDERED: NALOXONE 0.4 MG/ML 1 ML VIAL IV PRN (16:32)
[2017-05-23] MEDS: SODIUM CHLORIDE 0.9% 1,000 ML IV SCH (17:57)
[2017-05-23] MEDS ORDERED: SYMBICORT 160-4.5 MCG INHALER INHALATION PRN (19:11)
[2017-05-23] MEDS ORDERED: ALBUTEROL NEBULIZED 2.5 MG/3 ML INHALATION SCH (20:00)
[2017-05-23] MEDS: HYDROmorphone 0.5 MG/0.5 ML SYRINGE IVP PRN (20:11)
[2017-05-23] MEDS ORDERED: ALBUTEROL NEBULIZED 2.5 MG/3 ML INHALATION PRN (21:07)
--- NOTE | 2017-05-23 21:11 | HP ---
HISTORY AND PHYSICAL CHIEF COMPLAINTS: Abdominal pain and nausea. HISTORY OF PRESENT ILLNESS: This 46-year-old woman with a past medical history of multiple medical problems and possible ulcerative colitis had a colectomy and subsequently ileostomy, history of asthma, diabetes mellitus, GERD, hypertension, hyperlipidemia, DJD, pulmonary embolism, is being followed by Dr. Monson in the outpatient setting. The patient initially had surgery at [facility]. The patient was previously admitted with abdominal pain and pain. Currently the patient is not feeling well over the past several days. The patient apparently had an episode of vomiting and subsequently patient developed abdominal bloating as well as some nausea. The patient also noted stomal herniation at the ileostomy site. Patient became mostly nauseous, and patient came to [facility] and was admitted for further evaluation and treatment. A CT scan of the abdomen and pelvis showed non-contrast exam and possibly enteritis and postoperative changes were noted, hepatic steatosis, hepatomegaly. Non- obstructive left nephrolithiasis was also noted. There is no history of any fever, rigor or chills. No history of headache, loss of consciousness, seizures at this time. PAST MEDICAL HISTORY: 1. History of asthma. 2. Diabetes mellitus. 3. GERD. 4. Hypertension. 5. Hyperlipidemia. 6. DJD. 7. History of colitis and surgeries. HOME MEDICATIONS: 1. Symbicort 160/4.5 two puffs b.i.d. and 2 puffs daily p.r.n. 2. Ventolin HFA 1-2 puffs q.6 p.r.n. 3. Multivitamins 1 p.o. daily. 4. Zyrtec 10 mg p.o. daily. ALLERGIES: 1. ADHESIVES. 2. ASPIRIN. 3. IBUPROFEN. 4. IODINATED CONTRAST DYE. 5. SULFA. FAMILY HISTORY: History of cervical cancer. SOCIAL HISTORY: History of occasional alcohol intake. Previous history of smoking. REVIEW OF SYSTEMS: ENT: No diminished hearing. No diminished vision. CARDIOVASCULAR SYSTEM: As mentioned earlier. RESPIRATORY SYSTEM: As mentioned earlier. GI: As mentioned earlier. : No dysuria or retention. NERVOUS SYSTEM: No numbness, weakness. ALLERGY/IMMUNOLOGY: Asthma present. MUSCULOSKELETAL: As mentioned earlier. HEMATOLOGY/ONCOLOGY: No history of anemia. ENDOCRINE: No history of diabetes, hypothyroidism. CONSTITUTIONAL: As mentioned earlier. DERMATOLOGY: Negative. RHEUMATOLOGY: Negative. PSYCHIATRY: As mentioned earlier. PHYSICAL EXAMINATION: Patient is alert and oriented x3. Pulse 83, blood pressure 108/59, respiration 16, temperature 97.9, pulse ox 96% on room air. HEENT: Conjunctivae normal. Oral mucosa moist. NECK: No jugular venous distention. No carotid bruit. No lymph node enlargement. CARDIOVASCULAR SYSTEM: S1, S2 muffled. No S3. No S4. RESPIRATORY SYSTEM: Breath sounds diminished at the bases. A few rhonchi. No crackles. ABDOMEN: Soft. Mild diffuse distention. Otherwise, ileostomy present, possibly a stomal hernia present. Otherwise, bowel sounds diminished. No ascites. No guarding. No rigidity. LEGS: No edema. No swelling. NERVOUS SYSTEM: Higher functions as mentioned earlier. Moves all 4 limbs. No focal motor or sensory deficit. LYMPHATICS: No lymph node palpable in neck, axillae or groin. SKIN: No ulcer, rash, bleeding. LABS: WBC 6.7, hemoglobin 12.3, sodium 142, potassium 4.6. ASSESSMENT: 1. Abdominal pain with nausea with stomal herniation; rule out bowel obstruction. 2. History of ileostomy. 3. History of colectomy for possible ulcerative colitis. 4. History of asthma. 5. History of diabetes mellitus. 6. History of gastroesophageal reflux disease. 7. Hypertension. 8. Hyperlipidemia. 9. History of degenerative joint disease. 10.History of sleep apnea. 11.History of nephrolithiasis. 12.History of right bundle branch block on EKG. 13.History of methicillin-resistant Staphylococcus aeruginosa. 14.History of cholecystectomy. 15.Remote history of nicotine dependence. RECOMMENDATIONS AND DISCUSSION: In this 46-year-old woman who presented with multiple complex medical issues., we will we will monitor the patient closely, continue the current medications, continue with symptomatic treatment. Will initiate home medications, IV fluids, clear liquid diet. Surgical evaluation, gastroenterology evaluation. Guarded prognosis because of multiple complex medical issues. Further recommendations to follow. MMODL / IJN: [id number] / MTDD
[2017-05-24] MEDS: HYDROmorphone 0.5 MG/0.5 ML SYRINGE IVP PRN ×5 (02:35→19:45)
[2017-05-24] MEDS: SODIUM CHLORIDE 0.9% 1,000 ML IV SCH ×2 (02:36→12:05)
[2017-05-24] MEDS: ONDANSETRON 4 MG/2 ML VIAL IVP PRN ×2 (07:31→14:35)
[2017-05-24 08:53] LABS: Basophils % (A) 0 %; Eosinophils % (A) 0 %; HCT 36.3 % (34.0-46.0); HGB 11.5 gm/dL (11.4-16.0); Lymphocytes # (A) 2.8 k/uL (1.0-4.8); Lymphocytes % (A) 39 %; MCH 31.8 pg (25.0-35.0); MCHC 31.6 g/dL (31.0-37.0); MCV 100.7 fL (80.0-100.0); Mean Platelet Volume 6.7; Monocytes # (A) 0.4 k/uL (0-1.0); Monocytes % (A) 5 %; Neutrophils # (A) 3.8 k/uL (1.3-7.7); Neutrophils % (A) 54 %; Platelet Count 326 k/uL (150-450); RDW 12.9 % (11.5-15.5); WBC 7.1 k/uL (3.8-10.6)
[2017-05-24 09:02] LABS: ALT 18 U/L (9-52); AST 15 U/L (14-36); Albumin 3.6 g/dL (3.5-5.0); Alkaline Phosphatase 92 U/L (38-126); Anion Gap 10 mmol/L; Blood Urea Nitrogen 15 mg/dL (7-17); Calcium 8.9 mg/dL (8.4-10.2); Carbon Dioxide 22 mmol/L (22-30); Chloride 108 mmol/L (98-107); Glucose 103 mg/dL (74-99); Potassium 4.1 mmol/L (3.5-5.1); Sodium 140 mmol/L (137-145); Total Bilirubin 0.8 mg/dL (0.2-1.3); Total Protein 6.8 g/dL (6.3-8.2)
--- NOTE | 2017-05-24 09:12 | P.GSCN ---
History of Present Illness Consult date: 05/24/17 Reason for Consult: Abdominal pain, nausea and vomiting, parastomal hernia History of present illness: The patient's a pleasant 46-year-old female who gives a history of complex ulcerative colitis and possible inflammatory bowel disease. She gives a history of undergoing a subtotal colectomy with ileal pouch anal anastomosis. Her postoperative course was complicated with wound infections and so forth. She's had some repeated episodes of inflammation of the small bowel with small bowel dilation. She had been doing fairly well on a very limited diet. She was doing this for weight loss. She started eating some more normal take foods and began having symptoms again. She undergoes endoscopy on a regular basis by . She says she is due for a repeat endoscope soon. She notices the ileostomy itself is becoming larger. She's had episodes in the past where the small bowel becomes markedly dilated. She has some generalized abdominal pain. She vomited today after trying a popsicle Review of Systems All systems: negative - Constitutional Reports as per HPI Past Medical History Past Medical History: Asthma, Cancer, Diabetes Mellitus, GERD/Reflux, Hyperlipidemia, Hypertension, Osteoarthritis (OA), Sleep Apnea/CPAP/BIPAP Additional Past Medical History / Comment(s): ulcerative colitis, kidney stones , right bundle branch block. Neck pain, CPAP not used.pt has been on a weight managment program thru [facility] since and has lost 60#-no longer on medications for bp, cholesterol or diabetes. History of Any Multi-Drug Resistant Organisms: MRSA Year Discovered:: AUGUST 2015 MDRO Source:: SURGICAL SITE (ILEOSTOMY) Past Surgical History: Bowel Resection, Cholecystectomy, Hysterectomy Additional Past Surgical History / Comment(s): TOTAL COLECTOMY WITH j-pouch 1994 ,right knee arthroscopy, ileostomy 08-21-15. 09/16/16 rt kidney stent-since removed ,05-02-17 laser sx for kidney stones had stent since removed Past Anesthesia/Blood Transfusion Reactions: No Reported Reaction Past Psychological History: No Psychological Hx Reported Additional Psychological History / Comment(s): pt lives with spouse. has no steps to navigate. pt is independant. 1 pet dog. has nebulizer, cpap machine( not using) and ostomy supplies. Smoking Status: Former smoker Past Alcohol Use History: None Reported Additional Past Alcohol Use History / Comment(s): started smoking 1987, quit 1994 smoked 1/2 ppd Past Drug Use History: None Reported - Past Family History Father Family Medical History: No Reported History Mother Family Medical History: Cancer Additional Family Medical History / Comment(s): cervical cancer Medications and Allergies Home Medications Medication Instructions Recorded Confirmed Type Cetirizine HCl [Zyrtec] 10 mg PO DAILY 10/03/13 05/23/17 History Albuterol Inhaler [Ventolin Hfa 1 - 2 puff INHALATION RT-Q6H PRN 04/28/14 History Inhaler] Budesonide-Formot 160-4.5 Mcg 2 puff INHALATION RT-DAILY PRN 04/28/14 05/23/17 History [Symbicort 160-4.5 Mcg Inhaler] Multivitamins, Thera [Multivitamin 1 tab PO DAILY 05/23/17 05/23/17 History (formulary)] Allergies Allergy/AdvReac Type Severity Reaction Status Date / Time adhesive Allergy Rash/Hives/ Verified 05/23/17 13:28 blisters aspirin Allergy SWELLING Verified 05/23/17 13:28 OF LIPS ibuprofen [From Motrin] Allergy ULCER IN J Verified 05/23/17 13:28 POUCH,DR TOLD NOT TO TAKE Iodinated Contrast- Oral and Allergy Dyspnea Verified 05/23/17 13:28 IV Dye [Iodinated Contrast Media - IV Dye] lorazepam [From Ativan] Allergy Unknown Verified 05/23/17 13:28 Sulfa (Sulfonamide Allergy Rash/Hives Verified 05/23/17 13:28 Antibiotics) Surgical - Exam Osteopathic Statement: *. No significant issues noted on an osteopathic structural exam other than those noted in the History and Physical/Consult. Vital Signs Temp Pulse Resp BP Pulse Ox 97.3 F L 90 18 132/78 100 05/23/17 12:01 05/23/17 12:01 05/23/17 12:01 05/23/17 12:01 05/23/17 12:01 - General well developed, well nourished, moderate distress - Eyes normal ocular movement - ENT normal mucosa - Neck trachea midline, no venous distension - Respiratory normal respiratory effort, clear to auscultation - Cardiovascular Rhythm: regular - Abdomen There is a right upper quadrant ileostomy in place. The ileum itself appears to have normal mucosa but it is larger than expected. The peristomal area is fairly soft. There is a parastomal hernia present but no evidence of obstruction from this Abdomen: soft, tender (Mild diffuse), distended (Minimally) Results - Labs 05/24/17 08:20 05/24/17 08:20 Abnormal Lab Results - Last 24 Hours (Table) 05/23/17 05/23/17 05/23/17 Range/Units 14:05 14:05 14:05 RBC (3.80-5.40) m/uL MCV 100.1 H (80.0-100.0) fL ESR 29 H (0-20) mm/hr Chloride (98-107) mmol/L Creatinine 0.50 L (0.52-1.04) mg/dL Glucose (74-99) mg/dL 05/24/17 05/24/17 Range/Units 08:20 08:20 RBC 3.60 L (3.80-5.40) m/uL MCV 100.7 H (80.0-100.0) fL ESR (0-20) mm/hr Chloride 108 H (98-107) mmol/L Creatinine (0.52-1.04) mg/dL Glucose 103 H (74-99) mg/dL Diabetes panel 05/23/17 05/24/17 Range/Units 14:05 08:20 Sodium 142 140 (137-145) mmol/L Potassium 4.6 4.1 (3.5-5.1) mmol/L Chloride 106 108 H (98-107) mmol/L Carbon Dioxide 25 22 (22-30) mmol/L BUN 15 15 (7-17) mg/dL Creatinine 0.50 L 0.57 (0.52-1.04) mg/dL Glucose 83 103 H (74-99) mg/dL Calcium 9.7 8.9 (8.4-10.2) mg/dL AST 20 15 (14-36) U/L ALT 15 18 (9-52) U/L Alkaline Phosphatase 115 92 (38-126) U/L Total Protein 7.8 6.8 (6.3-8.2) g/dL Albumin 4.2 3.6 (3.5-5.0) g/dL Calcium panel 05/23/17 05/24/17 Range/Units 14:05 08:20 Calcium 9.7 8.9 (8.4-10.2) mg/dL Albumin 4.2 3.6 (3.5-5.0) g/dL Pituitary panel 05/23/17 05/24/17 Range/Units 14:05 08:20 Sodium 142 140 (137-145) mmol/L Potassium 4.6 4.1 (3.5-5.1) mmol/L Chloride 106 108 H (98-107) mmol/L Carbon Dioxide 25 22 (22-30) mmol/L BUN 15 15 (7-17) mg/dL Creatinine 0.50 L 0.57 (0.52-1.04) mg/dL Glucose 83 103 H (74-99) mg/dL Calcium 9.7 8.9 (8.4-10.2) mg/dL Adrenal panel 05/23/17 05/24/17 Range/Units 14:05 08:20 Sodium 142 140 (137-145) mmol/L Potassium 4.6 4.1 (3.5-5.1) mmol/L Chloride 106 108 H (98-107) mmol/L Carbon Dioxide 25 22 (22-30) mmol/L BUN 15 15 (7-17) mg/dL Creatinine 0.50 L 0.57 (0.52-1.04) mg/dL Glucose 83 103 H (74-99) mg/dL Calcium 9.7 8.9 (8.4-10.2) mg/dL Total Bilirubin 0.6 0.8 (0.2-1.3) mg/dL AST 20 15 (14-36) U/L ALT 15 18 (9-52) U/L Alkaline Phosphatase 115 92 (38-126) U/L Total Protein 7.8 6.8 (6.3-8.2) g/dL Albumin 4.2 3.6 (3.5-5.0) g/dL - Imaging CT scan - abdomen: report reviewed, image reviewed Assessment and Plan (1) Parastomal hernia without obstruction or gangrene Current Visit: Yes Status: Acute Code(s): K43.5 - PARASTOMAL HERNIA WITHOUT OBSTRUCTION OR GANGRENE SNOMED Code(s): 193887056 (2) Enteritis Current Visit: Yes Status: Acute Code(s): K52.9 - NONINFECTIVE GASTROENTERITIS AND COLITIS, UNSPECIFIED SNOMED Code(s): 56956596 (3) Intractable abdominal pain Current Visit: Yes Status: Acute Code(s): R10.9 - UNSPECIFIED ABDOMINAL PAIN SNOMED Code(s): 32029757 (4) Intractable nausea and vomiting Current Visit: Yes Status: Acute Code(s): R11.2 - NAUSEA WITH VOMITING, UNSPECIFIED SNOMED Code(s): 701893218 Plan: The parastomal hernia is soft. I recommend GI evaluation for the enteritis. Recommend following up with [facility]. She says she was planning on having the ileostomy reversed this year so they can address the hernia at that time.
[2017-05-24] MEDS: MULTIVITAMINS, THERA 1 EACH TAB PO SCH (11:47)
[2017-05-24 12:13] LABS: Appearance,Urine Cloudy (Clear); Bilirubin,Urine Negative (Negative); Blood,Urine Negative (Negative); Color,Urine Yellow; Glucose,Urine (UA) Negative (Negative); Hyaline Casts,Urine 7 /lpf (0-2); Ketones,Urine Negative (Negative); Leukocyte Esterase,Urine Trace (Negative); Mucus,Urine Rare /hpf; Protein,Urine Negative (Negative); RBC,Urine 1 /hpf (0-5); Specific Gravity,Urine 1.018 (1.001-1.035); Squamous Epithelial Cell,Urine 1 /hpf (0-4); Urobilinogen,Urine <2.0 mg/dL (<2.0); WBC,Urine 13 /hpf (0-5)
[2017-05-24] MEDS: LEVOFLOXACIN 500MG-D5W PMX 500 MG in DEXTROSE/WATER 1 100ML.BAG IVPB SCH (14:34)
[2017-05-24] MEDS: LORATADINE 10 MG TAB PO SCH (14:34)
--- NOTE | 2017-05-24 17:54 | PN ---
PROGRESS NOTE DATE OF SERVICE: 05/24/2017 This 46-year-old woman with a past medical history of multiple medical problems admitted with abdominal pain. Patient also had a parastomal hernia. The patient had ileostomy. CAT scan showed some nonspecific enteritis. Surgery and Gastroenterology are following the patient closely. No chest pain, no palpitations. No fever. PHYSICAL EXAM: On exam, alert and oriented x3. Pulse 77, blood pressure 130/71, respirations 16, temperature 97.7, pulse ox 97% room air. HEENT: Conjunctivae normal. NECK: No jugular venous distention. CARDIOVASCULAR: S1 and S2 muffled. RESPIRATORY: Breath sounds diminished at the bases. No rhonchi. No crackles. ABDOMEN: Soft, mild diffuse discomfort. Otherwise no guarding, no rigidity. No mass palpable. LEGS: No edema, no swelling. NERVOUS SYSTEM: No focal deficits. LABS: WBC 7.1, hemoglobin 11.5. UA noted. ASSESSMENT: 1. Abdominal pain, nausea with a parastomal herniation. No evidence of bowel obstruction. 2. History of ileostomy. 3. Enteritis, nonspecific on the CAT scan. 4. History of colectomy for possible ulcerative colitis. 5. History of asthma. 6. History of diabetes mellitus type 2. 7. History of gastroesophageal reflux disease. 8. Hypertension. 9. Hyperlipidemia. 10.History of degenerative joint disease. 11.History of sleep apnea. 12.History of nephrolithiasis. 13.History of right bundle branch block on EKG. 14.History of methicillin-resistant Staphylococcus aureus. 15.History of cholecystectomy. 16.Remote history of nicotine dependence. RECOMMENDATION AND DISCUSSION: In this 46-year-old woman who presented with multiple complex medical issues, will monitor the patient closely. Continue the current medications, continued symptomatic treatment. Otherwise at this time, ESR is only 26. CRP is normal. Add empiric antibiotics. Continue to monitor. Further recommendations to follow. MMODL / IJN: [id number] /
[2017-05-25] MEDS: HYDROmorphone 0.5 MG/0.5 ML SYRINGE IVP PRN ×4 (00:27→23:34)
[2017-05-25] MEDS: SODIUM CHLORIDE 0.9% 1,000 ML IV SCH ×3 (00:27→15:30)
[2017-05-25] MEDS: ONDANSETRON 4 MG/2 ML VIAL IVP PRN ×2 (05:34→19:39)
[2017-05-25] MEDS: LORATADINE 10 MG TAB PO SCH (08:19)
[2017-05-25 09:09] LABS: Basophils % (A) 0 %; Eosinophils % (A) 0 %; HCT 36.3 % (34.0-46.0); HGB 11.2 gm/dL (11.4-16.0); Lymphocytes # (A) 1.6 k/uL (1.0-4.8); Lymphocytes % (A) 30 %; MCH 31.6 pg (25.0-35.0); MCHC 30.9 g/dL (31.0-37.0); MCV 102.2 fL (80.0-100.0); Macrocytosis Slight; Mean Platelet Volume 7.1; Monocytes # (A) 0.3 k/uL (0-1.0); Monocytes % (A) 5 %; Neutrophils # (A) 3.3 k/uL (1.3-7.7); Neutrophils % (A) 63 %; Platelet Count 268 k/uL (150-450); RBC 3.56 m/uL (3.80-5.40); RDW 12.7 % (11.5-15.5); WBC 5.2 k/uL (3.8-10.6)
[2017-05-25 09:20] LABS: Anion Gap 11 mmol/L; Blood Urea Nitrogen 11 mg/dL (7-17); Calcium 9.1 mg/dL (8.4-10.2); Carbon Dioxide 22 mmol/L (22-30); Chloride 105 mmol/L (98-107); Glucose 139 mg/dL (74-99); Potassium 3.8 mmol/L (3.5-5.1); Sodium 138 mmol/L (137-145)
[2017-05-25] MEDS ORDERED: HYDROmorphone 4 MG TABLET PO PRN (10:43)
[2017-05-25] MEDS ORDERED: HYDROmorphone 2 MG TAB PO PRN (10:43)
[2017-05-25] MEDS: MULTIVITAMINS, THERA 1 EACH TAB PO SCH (12:40)
[2017-05-25] MEDS: LEVOFLOXACIN 500MG-D5W PMX 500 MG in DEXTROSE/WATER 1 100ML.BAG IVPB SCH (14:13)
--- NOTE | 2017-05-25 17:24 | PN ---
PROGRESS NOTE DATE OF SERVICE: 05/25/2017. INTERVAL HISTORY: This 46-year-old woman was admitted with abdominal pain, nausea, had a parastomal herniation. There is no evidence of bowel obstruction. The patient had inflammatory bowel disease and multiple other complications also. The patient is being followed by [facility] at this time. Patient is on empiric antibiotics also for UTI. No chest pain. No palpitations. No fever. PHYSICAL EXAM: Alert and oriented times three. Pulse 80, blood pressure 102/59, respirations 16 , temperature 98.2, pulse ox 94% on room air. HEENT: Conjunctivae normal. Neck: No jugular venous distention. Cardiovascular: S1, S2. RESPIRATORY SYSTEM: Breath sounds diminished at the bases. No rhonchi and no crackles. ABDOMEN: Soft, otherwise nontender. Has mild discomfort on the right upper quadrant. Legs no edema and no swelling. Central nervous system: No focal deficits. LABS: WBC 5.2, hemoglobin 11.2. ASSESSMENT: 1. Abdominal pain, nausea, parastomal herniation. No evidence of bowel obstruction. 2. History of ileostomy. 3. Enteritis nonspecific in the CT scan. 4. History of colectomy for possible ulcerative colitis. 5. History of asthma. 6. History of diabetes type 2. 7. Gastroesophageal reflux disease. 8. Hypertension. 9. Hyperlipidemia. 10.Degenerative joint disease. 11.Sleep apnea. 13.Right bundle branch block on the EKG. 14.History of MRSA. 15.History of cholecystitis. 16.Remote history of nicotine dependence. RECOMMENDATIONS AND DISCUSSION: Recommend to continue current medication, continue symptomatic treatment. Otherwise, at this time, I recommend follow the patient closely along with Gastroenterology. Otherwise the patient has taken an appointment at [facility] for further followup. Otherwise continue the rest of the medications. Prognosis guarded. Further recommendations to follow. MMODL / IJN: [id number] / MTDFrances
[2017-05-25] MEDS ORDERED: ALPRAZolam 0.25 MG TAB PO PRN (20:00)
[2017-05-26] MEDS: HYDROmorphone 0.5 MG/0.5 ML SYRINGE IVP PRN ×2 (03:15→06:59)
[2017-05-26] MEDS: SODIUM CHLORIDE 0.9% 1,000 ML IV SCH (03:57)
[2017-05-26 07:00] LABS: Basophils % (A) 0 %; Eosinophils % (A) 0 %; HCT 35.5 % (34.0-46.0); HGB 11.2 gm/dL (11.4-16.0); Lymphocytes # (A) 2.2 k/uL (1.0-4.8); Lymphocytes % (A) 44 %; MCH 31.4 pg (25.0-35.0); MCHC 31.6 g/dL (31.0-37.0); MCV 99.3 fL (80.0-100.0); Mean Platelet Volume 6.2; Monocytes # (A) 0.3 k/uL (0-1.0); Monocytes % (A) 7 %; Neutrophils # (A) 2.3 k/uL (1.3-7.7); Neutrophils % (A) 47 %; Platelet Count 271 k/uL (150-450); RBC 3.57 m/uL (3.80-5.40); RDW 12.7 % (11.5-15.5); WBC 4.9 k/uL (3.8-10.6)
[2017-05-26 07:16] LABS: Anion Gap 8 mmol/L; Blood Urea Nitrogen 10 mg/dL (7-17); Calcium 9.3 mg/dL (8.4-10.2); Carbon Dioxide 28 mmol/L (22-30); Chloride 105 mmol/L (98-107); Glucose 93 mg/dL (74-99); Potassium 4.1 mmol/L (3.5-5.1); Sodium 141 mmol/L (137-145)
[2017-05-26 07:54] VITALS: BP 132/79; PULSE 72; RESP 18; TEMP 97.9
[2017-05-26] MEDS: LORATADINE 10 MG TAB PO SCH (08:17)
[2017-05-26] MEDS ORDERED: METHOCARBAMOL 500 MG TAB PO PRN (10:28)
--- NOTE | 2017-05-26 11:18 | P.CONS ---
History of Present Illness - Reason for Consult Consult date: 05/25/17 Abdominal pain, history of IBD - History of Present Illness The patient is a 46-year-old female who had total proctocolectomy with ileoanal anastomosis more than 20 years ago for ulcerative colitis. She has done well and remained off medications till around 3-1/2 years ago when she had strictures at the ileoanal anastomosis that required dilation. She was hospitalized multiple times because of progressive decrease in her rectal output and rectal pain as well as distention of the ileal pouch on CT of the abdomen. 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 The patient continued to have issues with postprandial pains and in July of 2016 she presented with significant dilation of her pouch that prompted referral to [facility] where she had a diverting ileostomy. The patient had a repeat the endoscopic evaluation in September of this year in anticipation of reversal of her ileostomy. That showed pouchitis but normal small intestine. She to the ER with cc of of abdominal pain. Patient states that she has a stoma due to some enlarged test times in the past. She states that it's been more enlarged and swollen and she's having abdominal pain that radiates to the back. Patient states when on for about 3 days. Patient states there is been no high fevers. She has had some nausea. Patient states her stools been loose. She states she just feels very bloated and she feels that this stoma is swollen and protruding. She denies any high fevers with this. She states that she's had this stoma placed at [facility] due to some unusual inflammatory change in her small bowel. She states that she was concerned because it just seems to be getting worse and she becoming more and more painful so she thought that she should be seen. CT of the abdomen consistent with enteritis. Review of Systems Constitutional: Denies fever, chills, sweats, weight gain, or loss. HEENT: Negative for migraines, blurred vision or loss, earaches, drainage, tinnitus, oral mucosal lesions, dysphagia, or odynophagia. CARDIAC: Negative for chest pain, arrhythmias, or palpitation. RESPIRATORY: Negative for cough, SOB or wheezing. GI: See HPI for pertinent findings. : Negative for hematuria, urgency, frequency, polyuria, or dysuria. MUSCULOSKELETAL: Negative for muscle aches, swelling, arthritis, and arthralgias. NEUROLOGIC: Negative for stroke or TIA. ENDOCRINE: Negative for thyroid problems or diabetes. SKIN: Negative for rash or itching. PSYCHIATRIC: Negative history for depression and anxiety. Past Medical History Past Medical History: Asthma, Cancer, Diabetes Mellitus, GERD/Reflux, Hyperlipidemia, Hypertension, Osteoarthritis (OA), Sleep Apnea/CPAP/BIPAP Additional Past Medical History / Comment(s): ulcerative colitis, kidney stones , right bundle branch block. Neck pain, CPAP not used.pt has been on a weight managment program thru [facility] since and has lost 60#-no longer on medications for bp, cholesterol or diabetes. History of Any Multi-Drug Resistant Organisms: MRSA Year Discovered:: AUGUST 2015 MDRO Source:: SURGICAL SITE (ILEOSTOMY) Past Surgical History: Bowel Resection, Cholecystectomy, Hysterectomy Additional Past Surgical History / Comment(s): TOTAL COLECTOMY WITH j-pouch 1994 ,right knee arthroscopy, ileostomy 08-21-15. / rt kidney stent-since removed ,05-02-17 laser sx for kidney stones had stent since removed Past Anesthesia/Blood Transfusion Reactions: No Reported Reaction Past Psychological History: No Psychological Hx Reported Additional Psychological History / Comment(s): pt lives with spouse. has no steps to navigate. pt is independant. 1 pet dog. has nebulizer, cpap machine( not using) and ostomy supplies. Smoking Status: Former smoker Past Alcohol Use History: None Reported Additional Past Alcohol Use History / Comment(s): started smoking 1987, quit 1994 smoked 1/2 ppd Past Drug Use History: None Reported - Past Family History Father Family Medical History: No Reported History Mother Family Medical History: Cancer Additional Family Medical History / Comment(s): cervical cancer Medications and Allergies Home Medications Medication Instructions Recorded Confirmed Type Cetirizine HCl [Zyrtec] 10 mg PO DAILY 10/03/13 05/23/17 History Albuterol Inhaler [Ventolin Hfa 1 - 2 puff INHALATION RT-Q6H PRN 04/28/14 History Inhaler] Budesonide-Formot 160-4.5 Mcg 2 puff INHALATION RT-DAILY PRN 04/28/14 05/23/17 History [Symbicort 160-4.5 Mcg Inhaler] Multivitamins, Thera [Multivitamin 1 tab PO DAILY 05/23/17 05/23/17 History (formulary)] Allergies Allergy/AdvReac Type Severity Reaction Status Date / Time adhesive Allergy Rash/Hives/ Verified 05/23/17 13:28 blisters aspirin Allergy SWELLING Verified 05/23/17 13:28 OF LIPS ibuprofen [From Motrin] Allergy ULCER IN J Verified 05/23/17 13:28 POUCH,DR TOLD NOT TO TAKE Iodinated Contrast- Oral and Allergy Dyspnea Verified 05/23/17 13:28 IV Dye [Iodinated Contrast Media - IV Dye] lorazepam [From Ativan] Allergy Unknown Verified 05/23/17 13:28 Sulfa (Sulfonamide Allergy Rash/Hives Verified 05/23/17 13:28 Antibiotics) Physical Exam Vitals: Vital Signs Temp Pulse Resp BP Pulse Ox 05/25/17 20:00 16 05/25/17 12:00 98.1 F 80 16 102/59 95 05/25/17 08:00 97.9 F 74 16 109/62 95 05/25/17 04:00 98.3 F 77 16 110/56 97 05/25/17 00:00 98.2 F 79 16 106/58 96 Intake and Output 05/25/17 05/25/17 05/26/17 14:59 22:59 06:59 Intake Total 1077 Balance 1077 Intake: Oral 1077 Other: Voiding Method Toilet Toilet General appearance: The patient is alert, oriented, with no acute distress. HET: Head is normocephalic and atraumatic. Pupils are equal and reactive. Oropharynx is clear without lesions. Neck: Supple without lymphadenopathy. Trachea midline. Heart: S1 S2. Regular rate and rhythm. Lungs: Clear to auscultation, with no dullness to percussion. Abdomen: Soft, nontender, nondistended with bowel sounds. No peritoneal signs. No palpable organomegaly or masses. Ileostomy site not infected. There is herniation of small bowel into the ileostomy bag but the mucosa appeared healthy. Parastomal herniation noted Extremities: Normal skin color and turgor. No cyanosis, rash, ulceration, clubbing, or edema. Radial and pedal pulses are 2/4 bilaterally. Neurological: No focal deficits. Strength and sensation are grossly intact. Results CBC & Chem 7: 05/26/17 06:33 05/26/17 06:33 Labs: Abnormal Lab Results - Last 24 Hours (Table) 05/25/17 05/25/17 Range/Units 08:26 08:26 RBC 3.56 L (3.80-5.40) m/uL Hgb 11.2 L (11.4-16.0) gm/dL MCV 102.2 H (80.0-100.0) fL MCHC 30.9 L (31.0-37.0) g/dL Glucose 139 H (74-99) mg/dL Microbiology - Last 24 Hours (Table) 05/23/17 14:05 Blood Culture - Preliminary Blood No Growth after 48 hours 05/24/17 21:00 Urine Culture - Preliminary Urine,Clean Catch Assessment and Plan Assessment: Enteritis. Doubt that inflammatory bowel disease or pouchitis is contributing to her present dictation at this time but this would be kept in mind. Plan: Since she is improving, will allow low-residue/soft diet and monitor her progress. I will continue to follow with you with interest and I will discuss with you and surgery. I did not schedule any repeat endoscopy at this time.
[2017-05-26] MEDS: ONDANSETRON 4 MG/2 ML VIAL IVP PRN (11:20)
[2017-05-26] MEDS: MULTIVITAMINS, THERA 1 EACH TAB PO SCH (12:11)
[2017-05-26] MEDS ORDERED: HYDROmorphone 4 MG TABLET PO PRN (13:13)
--- NOTE | 2017-05-27 07:05 | DS ---
DISCHARGE SUMMARY FINAL DIAGNOSES: 1. Abdominal pain, nausea with parastomal herniation. No evidence of bowel obstruction with enteritis. 2. History of ileostomy. 3. Nonspecific enteritis on the CAT scan. 4. History of colectomy for possible ulcerative colitis. 5. History of asthma. 6. Diabetes mellitus type 2. 7. Gastroesophageal reflux disease. 8. Hypertension. 9. Hyperlipidemia. 10.History of degenerative joint disease. 11.Sleep apnea. 12.Right bundle branch block on EKG. 13.History of methicillin-resistant Staphylococcus aureus .. 14.History of cholecystitis. 15.Remote history of nicotine dependence. DISCHARGE DISPOSITION: The patient will be discharged in stable condition with guarded prognosis. HISTORY OF PRESENT ILLNESS: This 46-year-old woman with a past medical history of multiple complex medical issues as mentioned being followed at the [facility] for and Dr. Bhardwaj in the outpatient setting admitted with abdominal pain. Enteritis suspected. improved significantly. Dr. Bhardwaj saw the patient and recommended the patient to follow up with [facility]. On exam, vitals are stable. CARDIOVASCULAR: S1 and S2 muffled. ABDOMEN: Soft. NERVOUS SYSTEM: No focal deficits. DISCHARGE ADVICE: 1. Diet is cardiac. 2. Activity limited until follow. 3. Follow up with Dr. Monson in 2 to 3 days. 4. Follow up with Dr. Bhardwaj and Surgery as advised. 5. Follow up with the [facility] as advised. Medications are: 1. Ventolin 1 to 2 puffs q.6 p.r.n. 2. Symbicort 160/4.5 two puffs b.i.d. 3. Zyrtec 10 mg p.o. daily. 4. Levaquin 500 mg p.o. daily for 5 days. 5. Robaxin 500 mg p.o. q.i.d. p.r.n. 6. Multivitamins 1 p.o. daily. Once again, the patient will be discharged in a stable condition with guarded prognosis. MMODL / IJN: [id number] / MTDD
== END 2017-05-26 15:15 | disposition home or self-care (01) ==
LOC: EC 11:39 → 3OBS 16:29
PROVIDERS: ADMIT Internal Medicine; ATTEND Internal Medicine
DX: R10.84 Generalized abdominal pain (principal); R11.2 Nausea with vomiting, unspecified; K43.5 Parastomal hernia without obstruction or gangrene; Z93.2 Ileostomy status; J45.909 Unspecified asthma, uncomplicated; E11.9 Type 2 diabetes mellitus without complications; K21.9 Gastro-esophageal reflux disease without esophagitis; I10 Essential (primary) hypertension; E78.5 Hyperlipidemia, unspecified; M19.90 Unspecified osteoarthritis, unspecified site; G47.30 Sleep apnea, unspecified; I45.10 Unspecified right bundle-branch block; Z86.14 Personal history of Methicillin resistant Staphylococcus aureus infection; Z87.891 Personal history of nicotine dependence; Z88.6 Allergy status to analgesic agent; M54.2 Cervicalgia; Z91.041 Radiographic dye allergy status; Z88.2 Allergy status to sulfonamides; Z88.8 Allergy status to other drugs, medicaments and biological substances; Z91.048 Other nonmedicinal substance allergy status; Z80.49 Family history of malignant neoplasm of other genital organs; Z87.442 Personal history of urinary calculi; N39.0 Urinary tract infection, site not specified; Z79.51 Long term (current) use of inhaled steroids; Z86.711 Personal history of pulmonary embolism; Z90.49 Acquired absence of other specified parts of digestive tract
CPT/HCPCS: 99285; 96375 ×3; 96361 ×4; 96376 ×6; 96365; 96366; 36415; 80053 ×2; 80048 ×2; 85652; 82150; 83690; 85025 ×4; 86140; 81001; 87040; 87086; 74176; G0378 ×4; J2405 ×4; J1956 ×2; J1170 ×4

== ENCOUNTER 2017-12-16 19:41 | Observation (INO) | payer BC ==
[2017-12-16] MEDS ORDERED: SODIUM CHLORIDE 0.9% 500 ML IV STA (20:15)
[2017-12-16] MEDS: NITROGLYCERIN SL TABS 0.4 MG TAB SUBLINGUAL STA ×3 (20:53→21:52)
--- NOTE | 2017-12-16 20:53 | ED ---
Chest Pain HPI - General Source: patient, RN notes reviewed Mode of arrival: ambulatory Limitations: no limitations <Pito Thakur - Last Filed: 12/16/17 22:36> <Shyla Herrera - Last Filed: 12/16/17 23:11> - General Chief Complaint: Chest Pain Stated Complaint: chest & shoulder pain/High BP Time Seen by Provider: 12/16/17 20:04 - History of Present Illness Initial Comments: 47-year-old female presented emergency department for left-sided chest discomfort. Patient states that she's had some burning sensation in her chest states it feels like it radiates towards her left jaw, left arm region. She states that she thought it was some sort of weird acid reflux symptoms on alleviated with Tums. Patient states that she's had no prior cardiac disease she has had a stress test last couple years. Patient states that she also notes her blood pressure has been elevated on no current medication therapy. She does admit to some shortness of breath. Denies any trauma, fever, cough or cold-like symptoms. Patient states that she has had some nausea no vomiting. ( Pito Thakur) - Related Data Home Medications Medication Instructions Recorded Confirmed Cetirizine HCl [Zyrtec] 10 mg PO DAILY PRN 10/03/13 12/16/17 Multivitamins, Thera [Multivitamin 1 tab PO DAILY 05/23/17 12/16/17 (formulary)] Fluticasone Nasal [place] [Flonase 1 spray EA NOSTRIL DAILY PRN 12/16/17 12/16/17 Nasal [place]] diphenhydrAMINE HCL [Benadryl] 25 mg PO BID PRN 12/16/17 12/16/17 Previous Rx's Medication Instructions Recorded Methocarbamol [Robaxin] 500 mg PO QID PRN #20 tab 05/26/17 Allergies Allergy/AdvReac Type Severity Reaction Status Date / Time adhesive Allergy Rash/Hives/ Verified 12/16/17 20:18 blisters aspirin Allergy SWELLING Verified 12/16/17 20:18 OF LIPS ibuprofen [From Motrin] Allergy ULCER IN J Verified 12/16/17 20:18 MELISADR TOLD NOT TO TAKE Iodinated Contrast- Oral and Allergy Dyspnea Verified 12/16/17 20:18 IV Dye [Iodinated Contrast Media - IV Dye] lorazepam [From Ativan] Allergy Unknown Verified 12/16/17 20:18 Sulfa (Sulfonamide Allergy Rash/Hives Verified 12/16/17 20:18 Antibiotics) Review of Systems ROS Other: All systems not noted in ROS Statement are negative. <Pito Thakur - Last Filed: 12/16/17 22:36> ROS Other: All systems not noted in ROS Statement are negative. <Shyla Herrera - Last Filed: 12/16/17 23:11> ROS Statement: Those systems with pertinent positive or pertinent negative responses have been documented in the HPI. EKG Findings - EKG Comments: EKG Findings:: EKG performed at 20:07 normal sinus rhythm with a rate of 99 ND 140 QRS 84 QT/QTC 352/451 <Pito Thakur - Last Filed: 12/16/17 22:36> Past Medical History Past Medical History: Asthma, Cancer, Diabetes Mellitus, GERD/Reflux, Hyperlipidemia, Hypertension, Osteoarthritis (OA), Sleep Apnea/CPAP/BIPAP Additional Past Medical History / Comment(s): ulcerative colitis, kidney stones , right bundle branch block. Neck pain, CPAP not used.pt has been on a weight managment program thru [facility] since and has lost 60#-no longer on medications for bp, cholesterol or diabetes. History of Any Multi-Drug Resistant Organisms: MRSA Date of last positivie culture/infection: AUGUST 2015 MDRO Source:: SURGICAL SITE (ILEOSTOMY) Past Surgical History: Bowel Resection, Cholecystectomy, Hysterectomy Additional Past Surgical History / Comment(s): TOTAL COLECTOMY WITH j-pouch 1994 ,right knee arthroscopy, ileostomy 08-21-15. 09/16/16 rt kidney stent-since removed ,05-02-17 laser sx for kidney stones had stent since removed Past Anesthesia/Blood Transfusion Reactions: No Reported Reaction Past Psychological History: No Psychological Hx Reported Smoking Status: Former smoker Past Alcohol Use History: None Reported Past Drug Use History: None Reported - Past Family History Father Family Medical History: No Reported History Mother Family Medical History: Cancer Additional Family Medical History / Comment(s): cervical cancer <Pito Thakur - Last Filed: 12/16/17 22:36> General Exam Limitations: no limitations General appearance: alert, in no apparent distress Head exam: Present: atraumatic, normocephalic, normal inspection Neck exam: Present: normal inspection. Absent: tenderness, meningismus, lymphadenopathy Respiratory exam: Present: normal lung sounds bilaterally. Absent: respiratory distress, wheezes, rales, rhonchi, stridor, chest wall tenderness Cardiovascular Exam: Present: regular rate, normal rhythm, normal heart sounds. Absent: systolic murmur, diastolic murmur, rubs, gallop, clicks GI/Abdominal exam: Present: soft, normal bowel sounds. Absent: distended, tenderness, guarding, rebound, rigid Back exam: Absent: CVA tenderness (R), CVA tenderness (L) <Pito Thakur - Last Filed: 12/16/17 22:36> Vital Signs 12/16/17 12/16/17 12/16/17 19:54 20:31 20:52 Temperature 98.0 F Pulse Rate 100 105 H 102 H Respiratory 18 18 17 Rate Blood Pressure 158/86 184/83 149/77 O2 Sat by Pulse 97 99 98 Oximetry 12/16/17 12/16/17 21:35 22:18 Temperature Pulse Rate 108 H 103 H Respiratory 18 18 Rate Blood Pressure 144/69 124/58 O2 Sat by Pulse 99 97 Oximetry Chest Pain MDM <Pito Thakur - Last Filed: 12/16/17 22:36> <Shyla Herrera - Last Filed: 12/16/17 23:11> - MDM I was available for consultation in the emergency department. The history and physical exam were done by the midlevel provider. I was consulted for this patient's care. I reviewed the case with the midlevel provider and based on their presentation of the patient, I agree with the assessment, medical decision making and plan of care as documented. 47-year-old female presenting with chest pain. Multiple cardiac risk factors including obesity, diabetes, hypertension, hyperlipidemia. Heart score is 3, we'll plan to place in observation for cardiac evaluation. (Shyla Herrera) Disposition <Pito Thakur - Last Filed: 12/16/17 22:36> <Shyla Herrera - Last Filed: 12/16/17 23:11> Clinical Impression: Chest pain Disposition: ADMITTED IP TO THIS HOSP Condition: Stable Referrals: Yeimy Monson MD [Primary Care Provider] - 1-2 days
[2017-12-16 20:55] LABS: HGB 13.6 gm/dL (11.4-16.0); MCH 32.3 pg (25.0-35.0); MCV 97.9 fL (80.0-100.0); RBC 4.19 m/uL (3.80-5.40); RDW 12.8 % (11.5-15.5); WBC 8.3 k/uL (3.8-10.6)
[2017-12-16 20:56] LABS: Mean Platelet Volume 7.4; Platelet Count 258 k/uL (150-450)
[2017-12-16 21:04] LABS: ALT 17 U/L (9-52); AST 44 U/L (14-36); Albumin 4.3 g/dL (3.5-5.0); Alkaline Phosphatase 117 U/L (38-126); Anion Gap 12 mmol/L; Blood Urea Nitrogen 14 mg/dL (7-17); Calcium 9.5 mg/dL (8.4-10.2); Carbon Dioxide 20 mmol/L (22-30); Chloride 108 mmol/L (98-107); Glucose 100 mg/dL (74-99); Lipase 56 U/L (23-300); Magnesium 1.6 mg/dL (1.6-2.3); Potassium 5.6 mmol/L (3.5-5.1); Sodium 140 mmol/L (137-145); Total Bilirubin 0.8 mg/dL (0.2-1.3); Total Protein 8.3 g/dL (6.3-8.2)
[2017-12-16 21:16] LABS: Band Neutrophils % 1 %; Creatine Kinase 76 U/L (30-135); Hypochromasia (M) Present; Lymphocytes # (M) 3.98 k/uL (1.0-4.8); Monocytes # (M) 0.42 k/uL (0-1.0); Neutrophils % (M) 46 %; Nucleated Red Blood Cells 0 /100 WBC (0-0); Stomatocytes Present; Total Cells Counted 100
[2017-12-16 21:29] LABS: Creatine Kinase MB 0.6 ng/mL (0.0-2.4); Troponin I <0.012 ng/mL (0.000-0.034)
--- NOTE | 2017-12-16 21:40 | XR ---
EXAMINATION TYPE: XR chest 2V DATE OF EXAM: 12/16/2017 COMPARISON: 08/09/2016 HISTORY: Chest pain TECHNIQUE: Frontal and lateral views of the chest are obtained. FINDINGS: Heart and mediastinum are normal. Lungs are clear. Diaphragm is normal. The bony thorax is intact. There are chest leads. IMPRESSION: Normal chest. No change.
[2017-12-16 22:10] LABS: D-Dimer 0.31 mg/L FEU (<0.60); Prothrombin Time 9.5 sec (9.0-12.0)
[2017-12-16 22:24] LABS: Partial Thromboplastin Time 19.8 sec (22.0-30.0)
[2017-12-16] MEDS ORDERED: NITROGLYCERIN SL TABS 0.4 MG TAB SUBLINGUAL PRN (22:37)
[2017-12-16] MEDS ORDERED: HEPARIN SODIUM,PORCINE 5,000 UNIT/ML 1 ML VIAL IV ONE (22:37)
[2017-12-16] MEDS ORDERED: HEPARIN SOD,PORK IN 0.45% NACL 25,000 UNIT in 0.45% NACL 1 500ML.BAG IV SCH (22:45)
[2017-12-16 22:46] LABS: Appearance,Urine Cloudy (Clear); Bacteria,Urine Moderate /hpf; Bilirubin,Urine Negative (Negative); Blood,Urine Negative (Negative); Calcium Oxalate Crystals,Urine Rare /hpf; Color,Urine Yellow; Glucose,Urine (UA) Negative (Negative); Ketones,Urine Negative (Negative); Leukocyte Esterase,Urine Moderate (Negative); Mucus,Urine Occasional /hpf; Nitrite,Urine Negative (Negative); PH, Urine 5.5 (5.0-8.0); Protein,Urine Trace (Negative); RBC,Urine 2 /hpf (0-5); Specific Gravity,Urine 1.016 (1.001-1.035); Squamous Epithelial Cell,Urine 3 /hpf (0-4); Urobilinogen,Urine <2.0 mg/dL (<2.0); WBC,Urine 44 /hpf (0-5)
[2017-12-16] MEDS ORDERED: ACETAMINOPHEN TAB 325 MG TAB PO PRN (23:08)
[2017-12-17 00:39] VITALS: BMI 43.2
[2017-12-17 00:52] VITALS: RESP 16
[2017-12-17] MEDS ORDERED: traMADol 50 MG TAB PO PRN (01:18)
[2017-12-17] MEDS: traMADol 50 MG TAB PO PRN ×2 (01:29→05:53)
[2017-12-17 01:38] LABS: Cholesterol 204 mg/dL (<200); HDL Cholesterol 53 mg/dL (40-60); LDL Cholesterol,Calculated 89 mg/dL (0-99); Triglycerides 309 mg/dL (<150)
[2017-12-17 04:13] LABS: Creatine Kinase 57 U/L (30-135)
[2017-12-17 04:24] LABS: Creatine Kinase MB 0.5 ng/mL (0.0-2.4); Troponin I <0.012 ng/mL (0.000-0.034)
[2017-12-17 06:49] LABS: Glucose,Whole Blood 125 mg/dL (75-99)
[2017-12-17] MEDS ORDERED: diphenhydrAMINE 25 MG CAP PO PRN (08:05)
[2017-12-17] MEDS: BUTALB/APAP/CAFF 50-325-40MG TAB PO PRN ×2 (08:36→15:23)
[2017-12-17 09:36] LABS: Creatine Kinase 57 U/L (30-135)
[2017-12-17 09:47] LABS: Creatine Kinase MB 0.5 ng/mL (0.0-2.4); Troponin I <0.012 ng/mL (0.000-0.034)
[2017-12-17] MEDS ORDERED: REGADENOSON 0.4 MG/5 ML SYRINGE IV ONE (11:30)
[2017-12-17] MEDS ORDERED: AMINOPHYLLINE 500 MG/20 ML VIAL IV PRN (11:30)
--- NOTE | 2017-12-17 12:15 | P.CRDCN ---
History of Present Illness History of present illness: This is a pleasant 47-year-old female past medical history significant for situational hypertension, dyslipidemia, obstructive sleep apnea , diabetes mellitus, ulcerative colitis status post ostomy and former nicotine dependence. 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 We have been asked to see her in consultation for symptoms of chest pain. She states over the weekend she felt fatigued, weak and overall not well. She states she felt like she was coming down with something. She had just finished an antibiotic course for bronchitis. On Friday she started feeling a burning sensation in the left upper chest/shoulder region. The burning was constant with no specific aggravating factors. The discomfort radiated up into the left neck and the left arm felt heavy. She tried taking Tums and muscle relaxants with no relief. Friday she started feeling nauseated and mildly light headed so she came to ED for further evaluation. The burning seemed to subside when nitro paste was applied. She has had no further symptoms of chest discomfort. She was noted to have a urinary tract infection and was started on IV Rocephin. She states last year she came into the hospital secondary to elevated blood pressure and that time underwent a Lexiscan stress test which was normal as well as an echocardiogram which revealed preserved left ventricular systolic function with ejection fraction 55-60%. At this time she was found to have a kidney stone. She states prior to that eventually never had any issues with her blood pressure and her blood pressure elevation resolved once a kidney stone past. She currently doesn't take any medications for hypertension but her blood pressure has been high over the previous few days at home 160 systolic. EKG reveals sinus mechanism with no acute ST or T-wave abnormalities noted. Chest x-ray negative for acute cardiopulmonary process. Laboratory data reviewed, hemoglobin 13.6, platelets 258, d-dimer 0.31, sodium 140, potassium 5.6, magnesium 1.6, creatinine 0.57, AST 44, triglycerides 309, LDL 89, HDL 53. Most recent stress test obtained 07/2016 was negative for reversible cardiac ischemia. Review of Systems At the time of my exam: CONSTITUTIONAL: Denies fever. Denies chills. EYES: Denies blurred vision. Denies vision changes. Denies eye pain. EARS, NOSE, MOUTH & THROAT: Denies headache. Denies sore throat. Denies ear pain. CARDIOVASCULAR: Denies chest pain. Denies shortness of breath. Denies orthopnea. Denies PND. Denies palpitations. RESPIRATORY: Denies cough. GASTROINTESTINAL: Denies abdominal pain. Denies diarrhea. Denies constipation. Denies nausea. Denies vomiting. MUSCULOSKELETAL: Denies myalgias. INTEGUMENTARY: Denies pruitis. Denies rash. NEUROLOGIC: Denies numbness. Denies tingling. Denies weakness. PSYCHIATRIC: Denies anxiety. Denies depression. ENDOCRINE: Denies fatigue. Denies weight change. Denies polydipsia. Denies polyurina. GENITOURINARY: Denies burning, hematuria or urgency with micturation. HEMATOLOGIC: Denies history of anemia. Denies bleeding. Past Medical History Past Medical History: Asthma, Cancer, Diabetes Mellitus, GERD/Reflux, Hyperlipidemia, Hypertension, Osteoarthritis (OA), Sleep Apnea/CPAP/BIPAP Additional Past Medical History / Comment(s): ulcerative colitis, kidney stones , right bundle branch block. Neck pain, CPAP not used.pt has been on a weight managment program thru [facility] since and has lost 60#-no longer on medications for bp, cholesterol or diabetes. cervical ca and skin ca History of Any Multi-Drug Resistant Organisms: MRSA Date of last positivie culture/infection: AUGUST 2015 MDRO Source:: SURGICAL SITE (ILEOSTOMY) Past Surgical History: Bowel Resection, Cholecystectomy, Hysterectomy Additional Past Surgical History / Comment(s): TOTAL COLECTOMY WITH j-pouch 1994 ,right knee arthroscopy, ileostomy 08-21-15. 6/ rt kidney stent-since removed ,05-02-17 laser sx for kidney stones had stent since removed Past Anesthesia/Blood Transfusion Reactions: No Reported Reaction Past Psychological History: No Psychological Hx Reported Additional Psychological History / Comment(s): pt lives with spouse. has no steps to navigate. pt is independant. 1 pet dog. has nebulizer, cpap machine( not using) and ostomy supplies. Smoking Status: Former smoker Past Alcohol Use History: None Reported Additional Past Alcohol Use History / Comment(s): started smoking 1987, quit 1994 Past Drug Use History: None Reported - Past Family History Father Family Medical History: No Reported History Mother Family Medical History: Cancer Additional Family Medical History / Comment(s): cervical cancer Medications and Allergies Home Medications Medication Instructions Recorded Confirmed Type Cetirizine HCl [Zyrtec] 10 mg PO DAILY PRN 10/03/13 12/16/17 History Multivitamins, Thera [Multivitamin 1 tab PO DAILY 05/23/17 12/16/17 History (formulary)] Methocarbamol [Robaxin] 500 mg PO QID PRN #20 tab 05/26/17 12/16/17 Rx Fluticasone Nasal [place] [Flonase 1 spray EA NOSTRIL DAILY PRN 12/16/17 12/16/17 History Nasal [place]] diphenhydrAMINE HCL [Benadryl] 25 mg PO BID PRN 12/16/17 12/16/17 History Allergies Allergy/AdvReac Type Severity Reaction Status Date / Time adhesive Allergy Rash/Hives/ Verified 12/16/17 20:18 blisters aspirin Allergy SWELLING Verified 12/16/17 20:18 OF LIPS ibuprofen [From Motrin] Allergy ULCER IN J Verified 12/16/17 20:18 POUCH,DR TOLD NOT TO TAKE Iodinated Contrast- Oral and Allergy Dyspnea Verified 12/16/17 20:18 IV Dye [Iodinated Contrast Media - IV Dye] lorazepam [From Ativan] Allergy Unknown Verified 12/16/17 20:18 Sulfa (Sulfonamide Allergy Rash/Hives Verified 12/16/17 20:18 Antibiotics) Physical Exam Vitals: Vital Signs Temp Pulse Pulse Resp BP BP Pulse Ox 12/17/17 07:05 96 12/17/17 03:48 16 12/17/17 03:43 97.5 F L 80 16 138/79 96 12/17/17 00:30 97.9 F 96 16 145/76 95 12/17/17 00:00 16 12/16/17 23:25 97.6 F 102 H 18 133/59 99 12/16/17 22:18 103 H 18 124/58 97 12/16/17 21:35 108 H 18 144/69 99 12/16/17 20:52 102 H 17 149/77 98 12/16/17 20:31 105 H 18 184/83 99 12/16/17 19:54 98.0 F 100 18 158/86 97 Intake and Output 12/16/17 12/17/17 12/17/17 22:59 06:59 14:59 Other: Voiding Method Toilet Weight 117.934 kg 117.9 kg Blood pressure 144/83 heart rate 85 afebrile maintaining oxygen saturation on room air GENERAL: This is a 47-year-old female in no apparent distress at the time of my examination. HEENT: Head is atraumatic, normocephalic. Pupils are equal, round. Sclerae anicteric. Conjunctivae are clear. Mucous membranes of the mouth are moist. Neck is supple. There is no jugular venous distention. No carotid bruit is heard. LUNGS: Clear to auscultation no wheezes, rales or rhonchi. No chest wall tenderness is noted on palpation or with deep breathing. HEART: Regular rate and rhythm without murmurs, rubs or gallops. S1 and S2 heard. ABDOMEN: Soft, nontender. Bowel sounds are heard. No organomegaly noted. Ostomy in place. EXTREMITIES: No evidence of peripheral edema and no calf tenderness noted. VASCULAR: Radial and dorsalis pedis pulses palpated, no evidence of clubbing. NEUROLOGIC: Patient is awake, alert and oriented x3. Results 12/16/17 20:46 12/16/17 20:46 Cardiac Enzymes 12/16/17 12/16/17 12/17/17 Range/Units 20:46 20:46 03:14 AST 44 H (14-36) U/L CK-MB (CK-2) 0.6 0.5 (0.0-2.4) ng/mL Troponin I <0.012 <0.012 (0.000-0.034) ng/mL Coagulation 12/16/17 Range/Units 21:35 PT 9.5 (9.0-12.0) sec APTT 19.8 L (22.0-30.0) sec Lipids 12/16/17 Range/Units 20:46 Triglycerides 309 H (<150) mg/dL Cholesterol 204 H (<200) mg/dL HDL Cholesterol 53 (40-60) mg/dL CBC 12/16/17 Range/Units 20:46 WBC 8.3 (3.8-10.6) k/uL RBC 4.19 (3.80-5.40) m/uL Hgb 13.6 (11.4-16.0) gm/dL Hct 41.0 (34.0-46.0) % Plt Count 258 (150-450) k/uL Comprehensive Metabolic Panel 12/16/17 Range/Units 20:46 Sodium 140 (137-145) mmol/L Potassium 5.6 H (3.5-5.1) mmol/L Chloride 108 H (98-107) mmol/L Carbon Dioxide 20 L (22-30) mmol/L BUN 14 (7-17) mg/dL Creatinine 0.57 (0.52-1.04) mg/dL Glucose 100 H (74-99) mg/dL Calcium 9.5 (8.4-10.2) mg/dL AST 44 H (14-36) U/L ALT 17 (9-52) U/L Alkaline Phosphatase 117 (38-126) U/L Total Protein 8.3 H (6.3-8.2) g/dL Albumin 4.3 (3.5-5.0) g/dL Current Medications Generic Name Dose Route Start Last Admin Trade Name Freq PRN Reason Stop Dose Admin Acetaminophen 650 mg 12/16/17 23:08 12/16/17 23:27 Tylenol Tab PO 650 mg Q6HR PRN Administration Pain or Fever > 100.5 Heparin Sodium/Sodium Chloride 500 mls @ 20 mls/hr 12/16/17 22:45 12/16/17 23 :21 25,000 unit/ Sodium Chloride IV 8.48 units/kg/hr .Q24H DOMI 20 mls/hr Administration Protocol Nitroglycerin 0.4 mg 12/16/17 22:37 Nitrostat SUBLINGUAL Q5M PRN Chest Pain Tramadol HCl 25 mg 12/17/17 01:21 12/17/17 05:53 Ultram PO 25 mg Q6H PRN Administration Pain Intake and Output 12/16/17 12/17/17 12/17/17 22:59 06:59 14:59 Other: Voiding Method Toilet Weight 117.934 kg 117.9 kg 12/16/17 20:46 12/16/17 20:46 Assessment and Plan Assessment: ASSESSMENT Chest pain, atypical. An acute coronary event has been ruled out with EKG evidence of ischemia and negative cardiac enzymes. Urinary tract infection Hypertension Gastroesophageal reflux disease Diabetes mellitus currently diet controlled Obstructive sleep apnea PLAN Discontinue heparin infusion. Obtain 2-D echocardiogram and Doppler study to assess cardiac structure and function. Perform Lexiscan stress test to assess for reversible cardiac ischemia. If stress test is normal she is stable from a cardiac perspective. Recommend considering the possibility of kidney stones again or some abdominal etiology. Thank you kindly for this consultation. Nurse Practitioner note has been reviewed, I agree with a documented findings and plan of care. Patient was seen and examined.
[2017-12-17 12:57] LABS: Glucose,Whole Blood 99 mg/dL (75-99)
[2017-12-17 13:05] LABS: Anion Gap 11 mmol/L; Blood Urea Nitrogen 13 mg/dL (7-17); Calcium 9.3 mg/dL (8.4-10.2); Carbon Dioxide 23 mmol/L (22-30); Chloride 107 mmol/L (98-107); Glucose 124 mg/dL (74-99); Sodium 141 mmol/L (137-145)
--- NOTE | 2017-12-17 14:13 | P.HPIM ---
History of Present Illness 47-year-old present female came in with complaints of the left-sided chest pain burning sensation 9/10 in severity radiating to the left arm and neck area. Her pain continued for about the 2-3 days constant in nature no acidosis or diaphoresis has some nausea denied any lightheadedness does have some cough. Patient was recently treated for bronchitis. Denied any previous history of coronary artery disease. Patient's pain is nonpruritic does have leukocytosis. When questioned patient was comparing of increased urinary frequency and mild dysuria urine is definitely abnormal with moderate bacteria moderate leukocyte esterase and elevated white blood cell count. Patient was given Rocephin yesterday will give another dose of Rocephin today and the complete the course of therapy with Ceftin couple more doses tomorrow. Patient has a colostomy bag has issues with the excessive output from the colostomy. Patient was hyperkalemic etiology is unclear although that resolved today. Review of Systems REVIEW OF SYSTEMS: CONSTITUTIONAL: No fever, no malaise, no fatigue. HEENT: No recent visual problems or hearing problems. Denied any sore throat. CARDIOVASCULAR: No orthopnea, PND, no palpitations, no syncope. PULMONARY: No shortness of breath, no cough, no hemoptysis. GASTROINTESTINAL: No diarrhea, no nausea, no vomiting, no abdominal pain. Normoactive bowel sounds. NEUROLOGICAL: No headaches, no weakness, no numbness. HEMATOLOGICAL: Denies any bleeding or petechiae. GENITOURINARY: Denies any burning micturition, frequency, or urgency. MUSCULOSKELETAL/RHEUMATOLOGICAL: Denies any joint pain, swelling, or any muscle pain. ENDOCRINE: Denies any polyuria or polydipsia. The rest of the 14-point review of systems is negative. Past Medical History Past Medical History: Asthma, Cancer, Diabetes Mellitus, GERD/Reflux, Hyperlipidemia, Hypertension, Osteoarthritis (OA), Sleep Apnea/CPAP/BIPAP Additional Past Medical History / Comment(s): ulcerative colitis, kidney stones , right bundle branch block. Neck pain, CPAP not used.pt has been on a weight managment program thru [facility] since and has lost 60#-no longer on medications for bp, cholesterol or diabetes. cervical ca and skin ca History of Any Multi-Drug Resistant Organisms: MRSA Date of last positivie culture/infection: AUGUST 2015 MDRO Source:: SURGICAL SITE (ILEOSTOMY) Past Surgical History: Bowel Resection, Cholecystectomy, Hysterectomy Additional Past Surgical History / Comment(s): TOTAL COLECTOMY WITH j-pouch 1994 ,right knee arthroscopy, ileostomy 08-21-15. 09/16/16 rt kidney stent-since removed ,05-02-17 laser sx for kidney stones had stent since removed Past Anesthesia/Blood Transfusion Reactions: No Reported Reaction Past Psychological History: No Psychological Hx Reported Additional Psychological History / Comment(s): pt lives with spouse. has no steps to navigate. pt is independant. 1 pet dog. has nebulizer, cpap machine( not using) and ostomy supplies. Smoking Status: Former smoker Past Alcohol Use History: None Reported Additional Past Alcohol Use History / Comment(s): started smoking 1987, quit 1994 Past Drug Use History: None Reported - Past Family History Father Family Medical History: No Reported History Mother Family Medical History: Cancer Additional Family Medical History / Comment(s): cervical cancer Medications and Allergies Home Medications Medication Instructions Recorded Confirmed Type Cetirizine HCl [Zyrtec] 10 mg PO DAILY PRN 10/03/13 12/16/17 History Multivitamins, Thera [Multivitamin 1 tab PO DAILY 05/23/17 12/16/17 History (formulary)] Methocarbamol [Robaxin] 500 mg PO QID PRN #20 tab 05/26/17 12/16/17 Rx Fluticasone Nasal [place] [Flonase 1 spray EA NOSTRIL DAILY PRN 12/16/17 12/16/17 History Nasal [place]] diphenhydrAMINE HCL [Benadryl] 25 mg PO BID PRN 12/16/17 12/16/17 History Cefuroxime Axetil [Ceftin] 500 mg PO BID #2 tab 12/17/17 Rx Allergies Allergy/AdvReac Type Severity Reaction Status Date / Time adhesive Allergy Rash/Hives/ Verified 12/16/17 20:18 blisters aspirin Allergy SWELLING Verified 12/16/17 20:18 OF LIPS ibuprofen [From Motrin] Allergy ULCER IN J Verified 12/16/17 20:18 MELISADR TOLD NOT TO TAKE Iodinated Contrast- Oral and Allergy Dyspnea Verified 12/16/17 20:18 IV Dye [Iodinated Contrast Media - IV Dye] lorazepam [From Ativan] Allergy Unknown Verified 12/16/17 20:18 Sulfa (Sulfonamide Allergy Rash/Hives Verified 12/16/17 20:18 Antibiotics) Physical Exam Vitals: Vital Signs Temp Pulse Pulse Resp BP BP Pulse Ox 12/17/17 12:00 79 16 12/17/17 11:58 97.7 F 79 16 127/79 97 12/17/17 08:00 85 16 12/17/17 07:57 97.6 F 85 16 144/83 98 12/17/17 07:05 96 12/17/17 03:48 16 12/17/17 03:43 97.5 F L 80 16 138/79 96 12/17/17 00:30 97.9 F 96 16 145/76 95 12/17/17 00:00 16 12/16/17 23:25 97.6 F 102 H 18 133/59 99 12/16/17 22:18 103 H 18 124/58 97 12/16/17 21:35 108 H 18 144/69 99 12/16/17 20:52 102 H 17 149/77 98 12/16/17 20:31 105 H 18 184/83 99 12/16/17 19:54 98.0 F 100 18 158/86 97 Intake and Output 12/16/17 12/17/17 12/17/17 22:59 06:59 14:59 Other: Voiding Method Toilet Toilet # Voids 1 Weight 117.934 kg 117.9 kg 117.48 kg PHYSICAL EXAMINATION: GENERAL: The patient is alert and oriented x3, not in any acute distress. Obese HEENT: Pupils are round and equally reacting to light. EOMI. No scleral icterus. No conjunctival pallor. Normocephalic, atraumatic. No pharyngeal erythema. No thyromegaly. CARDIOVASCULAR: S1 and S2 present. No murmurs, rubs, or gallops. PULMONARY: Chest is clear to auscultation, no wheezing or crackles. ABDOMEN: Soft, nontender, nondistended, normoactive bowel sounds. No palpable organomegaly. MUSCULOSKELETAL: No joint swelling or deformity. EXTREMITIES: No cyanosis, clubbing, or pedal edema. NEUROLOGICAL: Gross neurological examination did not reveal any focal deficits. SKIN: No rashes. Results CBC & Chem 7: 12/16/17 20:46 12/17/17 08:58 Labs: Abnormal Lab Results - Last 24 Hours (Table) 12/16/17 12/16/17 12/16/17 Range/Units 20:46 20:46 21:35 APTT 19.8 L (22.0-30.0) sec Potassium 5.6 H (3.5-5.1) mmol/L Chloride 108 H (98-107) mmol/L Carbon Dioxide 20 L (22-30) mmol/L Glucose 100 H (74-99) mg/dL POC Glucose (mg/dL) (75-99) mg/dL AST 44 H (14-36) U/L Total Protein 8.3 H (6.3-8.2) g/dL Triglycerides 309 H (<150) mg/dL Cholesterol 204 H (<200) mg/dL Urine Appearance (Clear) Urine Protein (Negative) Ur Leukocyte Esterase (Negative) Urine WBC (0-5) /hpf Calcium Oxalate Crystal (None) /hpf Urine Bacteria (None) /hpf Urine Mucus (None) /hpf 12/16/17 12/17/17 12/17/17 Range/Units 22:15 06:46 08:58 APTT (22.0-30.0) sec Potassium (3.5-5.1) mmol/L Chloride (98-107) mmol/L Carbon Dioxide (22-30) mmol/L Glucose 124 H (74-99) mg/dL POC Glucose (mg/dL) 125 H (75-99) mg/dL AST (14-36) U/L Total Protein (6.3-8.2) g/dL Triglycerides (<150) mg/dL Cholesterol (<200) mg/dL Urine Appearance Cloudy H (Clear) Urine Protein Trace H (Negative) Ur Leukocyte Esterase Moderate H (Negative) Urine WBC 44 H (0-5) /hpf Calcium Oxalate Crystal Rare H (None) /hpf Urine Bacteria Moderate H (None) /hpf Urine Mucus Occasional H (None) /hpf Thrombosis Risk Factor Assmnt - Choose All That Apply Each Factor Represents 1 point: Age 41-60 years, Obesity (BMI >25) Thrombosis Risk Factor Assessment Total Risk Factor Score: 2 Thrombosis Risk Factor Assessment Level: Low Risk Assessment and Plan Plan: -Chest pain: Atypical ruled out acute coronary syndromes will undergo stress us if that's negative patient will be discharged. Patient's chest pain is probably musculoskeletal from her recent bronchitis -Hyperkalemia etiology is unknown repeat potassium is negative -Type 2 diabetes mellitus -Ulcerative colitis patient will be continued on home medications patient has colostomy bag in place -Hyperlipidemia -Hypertension -Sleep apnea uses CPAP machine at home Heparin type 2 diabetes mellitus -Gastroesophageal reflux disease -Possible urinary tract infection management as mentioned above
--- NOTE | 2017-12-17 14:48 | ECHOF ---
Referral Reason: MEASUREMENTS -------- HEIGHT: 165.1 cm WEIGHT: 117.5 kg BP: IVSd: 1.4 cm (0.6 - 1.1) LVIDd: 3.9 cm (3.9 - 5.3) LVPWd: 1.3 cm (0.6 - 1.1) IVSs: 1.7 cm LVIDs: 1.7 cm LVPWs: 1.7 cm Ao Diam: 3.1 cm (2.0 - 3.7) AV Cusp: 2.0 cm (1.5 - 2.6) LA Diam: 3.2 cm (2.7 - 3.8) MV EXCURSION: 7.983 mm (> 18.000) MV EF SLOPE: 50 mm/s (70 - 150) EPSS: 0.8 cm MV E Shane: 0.82 m/s MV DecT: 161 ms MV A Shane: 0.68 m/s MV E/A Ratio: 1.21 RAP: 5.00 mmHg RVSP: 13.09 mmHg FINDINGS -------- Sinus rhythm. This was a technically difficult study with suboptimal views. The left ventricular size is normal. There is mild concentric left ventricular hypertrophy. Overa ll left ventricular systolic function is normal with, an EF between 55 - 60 %. The right ventricle is normal in size and function. The left atrium is normal in size. The right atrium is normal in size. Lumason used The aortic valve is trileaflet, and appears structurally normal. No aortic stenosis or regurgitation. Mild mitral regurgitation is present. Mild tricuspid regurgitation present. The right ventricular systolic pressure, as measured by Doppl er, is 13.09mmHg. Pulmonic valve appears structurally normal. The aortic root size is normal. The pericardium is normal. CONCLUSIONS -------- 1. Sinus rhythm. 2. This was a technically difficult study with suboptimal views. 3. The left ventricular size is normal. 4. There is mild concentric left ventricular hypertrophy. 5. Overall left ventricular systolic function is normal with, an EF between 55 - 60 %. 6. The right ventricle is normal in size and function. 7. The left atrium is normal in size. 8. The right atrium is normal in size. 9. Lumason used 10. The aortic valve is trileaflet, and appears structurally normal. No aortic stenosis or regurgitat ion. 11. Mild mitral regurgitation is present. 12. Mild tricuspid regurgitation present. 13. The right ventricular systolic pressure, as measured by Doppler, is 13.09mmHg. 14. Pulmonic valve appears structurally normal. 15. The aortic root size is normal. 16. The pericardium is normal. [employer]: Buffy Prabhakar RDCS
--- NOTE | 2017-12-17 15:25 | P.STRESS ---
- Stress Test Note Stress Test Results/Findings: Exam Performed: NM stress lexiscan cardiolite Exam Date: 12/17/17 Reason for Exam: CHEST PAIN Height: 5 ft 5 in Weight: 117.48 kg Protocol: LEXISCAN Stage: NA Duration of Exercise: NA Resting Heart Rate: 93 Resting Blood Pressure: 146/96 Maximum Achieved Heart Rate: 113 Maximum Achieved Blood Pressure: 149/84 85% PMHR: NA 100% PMHR: NA METS: NA Technologist Comment: Stress Test Results/Findings: This is a 47-year-old female was admitted to the hospital with chest pain. Patient history of smoking. New : Baseline EKG showed sinus rhythm with normal MA interval and QRS duration. Blood pressure at rest is 146/96 with pulse rate of 93. A standard dose of Lexiscan was infused. EKGs during and after infusion did not reveal any changes of ischemia. Final impression: #1. Negative Lexiscan stress test #2. Report on the nuclear images to begin by the radiologist
[2017-12-17 15:58] VITALS: BP 138/85; PULSE 92; TEMP 98
--- NOTE | 2017-12-17 16:11 | NM ---
EXAMINATION TYPE: NM stress lexiscan cardiolite DATE OF EXAM: 12/17/2017 COMPARISON: 08/12/2016 HISTORY: Chest pain TECHNIQUE: After the intravenous administration of 10.19 mCi Tc 99m Sestamibi - Cardiolite resting S PECT images acquired 45 minutes post injection. The patient received 0.4mg Lexiscan, 24.2 mCi Tc 99m Sestamibi - Stress images obtained [address] injection FINDINGS: Review of stress and rest SPECT images demonstrates no distinct perfusion abnormality. Gated analysi s shows normal wall motion with an estimated left ventricular ejection fraction of 60 %. IMPRESSION: 1. No change suggest stress-induced ischemic change.
--- NOTE | 2017-12-18 16:29 | EST ---
Stress Test Results/Findings: Exam Performed: NM stress lexiscan cardiolite Exam Date: 12/17/17 Reason for Exam: CHEST PAIN Height: 5 ft 5 in Weight: 117.48 kg Protocol: LEXISCAN Stage: NA Duration of Exercise: NA Resting Heart Rate: 93 Resting Blood Pressure: 146/96 Maximum Achieved Heart Rate: 113 Maximum Achieved Blood Pressure: 149/84 85% PMHR: NA 100% PMHR: NA METS: NA Technologist Comment: Stress Test Results/Findings: This is a 47-year-old female was admitted to the hospital with chest pain. Patient history of smoking. New : Baseline EKG showed sinus rhythm with normal TN interval and QRS duration. Blood pressure at rest is 146/96 with pulse rate of 93. A standard dose of Lexiscan was infused. EKGs during and after infusion did not reveal any changes of ischemia. Final impression: #1. Negative Lexiscan stress test #2. Report on the nuclear images to begin by the radiologist FANNY
== END 2017-12-17 17:17 | disposition home or self-care (01) ==
LOC: EC 19:41 → 3OBS 22:59
PROVIDERS: ADMIT Hospitalist; ATTEND Hospitalist
DX: R07.89 Other chest pain (principal); E87.5 Hyperkalemia; D72.829 Elevated white blood cell count, unspecified; R30.0 Dysuria; R82.99 Other abnormal findings in urine; I10 Essential (primary) hypertension; K21.9 Gastro-esophageal reflux disease without esophagitis; J45.909 Unspecified asthma, uncomplicated; G47.33 Obstructive sleep apnea (adult) (pediatric); E78.5 Hyperlipidemia, unspecified; E11.9 Type 2 diabetes mellitus without complications; M19.90 Unspecified osteoarthritis, unspecified site; Z93.2 Ileostomy status; K51.90 Ulcerative colitis, unspecified, without complications; I45.10 Unspecified right bundle-branch block; Z79.51 Long term (current) use of inhaled steroids; Z79.899 Other long term (current) drug therapy; Z88.6 Allergy status to analgesic agent; Z91.041 Radiographic dye allergy status; Z88.2 Allergy status to sulfonamides; Z88.8 Allergy status to other drugs, medicaments and biological substances; Z91.048 Other nonmedicinal substance allergy status; Z99.89 Dependence on other enabling machines and devices; R53.1 Weakness; Z86.14 Personal history of Methicillin resistant Staphylococcus aureus infection; Z90.49 Acquired absence of other specified parts of digestive tract; Z90.710 Acquired absence of both cervix and uterus; Z87.891 Personal history of nicotine dependence; Z85.41 Personal history of malignant neoplasm of cervix uteri; Z85.828 Personal history of other malignant neoplasm of skin; Z80.49 Family history of malignant neoplasm of other genital organs
CPT/HCPCS: 96376 ×2; 96361 ×2; 96365 ×2; 99285 ×2; 96366; 96368; 36415; 93005; 93017; 93306; 85379; 80061; 80053; 80048; 82550 ×2; 82553 ×2; 83690; 83735; 84484 ×2; 85025; 85610; 85730; 81001; 71046; 78452; G0378 ×2; A9500; J1644 ×2; J0696; J2785; Q9950

== ENCOUNTER → 2018-10-15 | Outpatient (CLI) | payer BC ==
--- NOTE | 2018-10-16 10:52 | MM ---
Reason for exam: screening (asymptomatic). Last mammogram was performed 2 years and 8 months ago. History: Patient is postmenopausal and history of other cancer. Took estrogen for 1 year beginning at age 42. Physical Findings: A clinical breast exam by your physician is recommended on an annual basis and results should be correlated with mammographic findings. MG Screening Mammo w CAD Bilateral CC and MLO view(s) were taken. Prior study comparison: February 19, 2016, bilateral MG 3d diag mammo w/cad ANGELINE. June 29, 2014, left breast MG diagnostic mammo LT w CAD. The breast tissue is almost entirely fat. No significant changes when compared with prior studies. ASSESSMENT: Negative, BI-RAD 1 RECOMMENDATION: Routine screening mammogram of both breasts in 1 year.
== END | disposition home or self-care (01) ==
LOC: RADMAMWWP 16:47
PROVIDERS: ATTEND Internal Medicine
DX: Z12.31 Encounter for screening mammogram for malignant neoplasm of breast (principal)
CPT/HCPCS: 77067

== ENCOUNTER 2018-12-07 19:32 | Emergency (ER) | payer BC ==
[2018-12-07 19:41] VITALS: PULSE 88
[2018-12-07 20:55] LABS: Appearance,Urine Cloudy (Clear); Bacteria,Urine Occasional /hpf; Bilirubin,Urine Negative (Negative); Blood,Urine Moderate (Negative); Color,Urine Yellow; Glucose,Urine (UA) Negative (Negative); Ketones,Urine Negative (Negative); Leukocyte Esterase,Urine Trace (Negative); Mucus,Urine Few /hpf; Nitrite,Urine Negative (Negative); PH, Urine 5.5 (5.0-8.0); Protein,Urine 1+ (Negative); RBC,Urine 141 /hpf (0-5); Specific Gravity,Urine 1.027 (1.001-1.035); Squamous Epithelial Cell,Urine 27 /hpf (0-4); Urobilinogen,Urine <2.0 mg/dL (<2.0)
[2018-12-07] MEDS ORDERED: HYDROmorphone 0.5 MG/0.5 ML SYRINGE IVP STA (21:16)
[2018-12-07] MEDS ORDERED: ONDANSETRON 4 MG/2 ML VIAL IVP STA (21:16)
--- NOTE | 2018-12-07 21:26 | ED ---
Abdominal Pain HPI - General Chief Complaint: Abdominal Pain Stated Complaint: Abd & Back Pain Time Seen by Provider: 12/07/18 20:45 Source: family Mode of arrival: wheelchair Limitations: no limitations - History of Present Illness Initial Comments: Patient is a 48-year-old female with history of kidney stones presenting to emergency Department with a chief complaint of abdominal pain. Patient reports developing abdominal pain in the left flank region approximately 1 week has slowly increased in severity. Patient reports the pain was initially the left flank region and radiates along the left lower quadrant to the groin region. Patient reports the abdominal pain is causing occasional back pain. Patient reports the pain is spasmic in nature that comes and goes. Patient also reports midline suprapubic pressure. Patient also reports increased urgency but is unable to fully empty her bladder. Patient also reports mild dysuria. Patient denies any vaginal discharge. Patient reports gross hematuria few Days ago that has since resolved. Patient also reports nausea with no vomiting. Patient does report intermittent diarrhea over the past week. Patient denies hematochezia or melena. Patient denies any night sweats fevers or chills. Patient reports multiple abdominal surgeries including appendectomy, cholecystectomy, colectomy and hysterectomy. Patient reports the abdominal pain is not related to food intake. Patient does have a colostoostomy bag and reports it has been working without issues. - Related Data Home Medications Medication Instructions Recorded Confirmed Cetirizine HCl [Zyrtec] 10 mg PO DAILY 10/03/13 12/07/18 Multivitamins, Thera [Multivitamin 1 tab PO DAILY 05/23/17 12/07/18 (formulary)] Fluticasone Nasal [place] [Flonase 1 spray EA NOSTRIL DAILY PRN 12/16/17 12/07/18 Nasal [place]] Albuterol Sulfate [Proair Hfa] 1 - 2 puff INHALATION Q6HR PRN 12/07/18 12/07/18 Budesonide/Formoterol Fumarate 2 puff INHALATION BID PRN 12/07/18 12/07/18 [Symbicort 160-4.5 Mcg Inhaler] Ibuprofen [Motrin Ib] 200 - 300 mg PO Q6H PRN 12/07/18 12/07/18 Methocarbamol [Robaxin-750] 750 mg PO TID PRN 12/07/18 12/07/18 Previous Rx's Medication Instructions Recorded Ondansetron Odt [Zofran Odt] 4 mg PO Q8HR PRN #10 tab 12/07/18 Allergies Allergy/AdvReac Type Severity Reaction Status Date / Time adhesive Allergy Rash/Hives/ Verified 12/07/18 20:07 blisters aspirin Allergy SWELLING Verified 12/07/18 20:07 OF LIPS ibuprofen [From Motrin] Allergy ULCER IN J Verified 12/07/18 20:07 POUCH,DR TOLD NOT TO TAKE Iodinated Contrast- Oral and Allergy Dyspnea Verified 12/07/18 20:07 IV Dye [Iodinated Contrast Media - IV Dye] lorazepam [From Ativan] Allergy Unknown Verified 12/07/18 20:07 Sulfa (Sulfonamide Allergy Rash/Hives Verified 12/07/18 20:07 Antibiotics) Review of Systems ROS Statement: Those systems with pertinent positive or pertinent negative responses have been documented in the HPI. ROS Other: All systems not noted in ROS Statement are negative. Past Medical History Past Medical History: Asthma, Cancer, Diabetes Mellitus, GERD/Reflux, Hyperlipidemia, Hypertension, Osteoarthritis (OA), Sleep Apnea/CPAP/BIPAP Additional Past Medical History / Comment(s): ulcerative colitis, kidney stones, right bundle branch block. Neck pain, CPAP not used.pt has been on a weight managment program thru [facility] since and has lost 60#-no longer on medications for bp, cholesterol or diabetes. History of Any Multi-Drug Resistant Organisms: MRSA Date of last positivie culture/infection: AUGUST 2015 MDRO Source:: SURGICAL SITE (ILEOSTOMY) Past Surgical History: Bowel Resection, Cholecystectomy, Hysterectomy Additional Past Surgical History / Comment(s): TOTAL COLECTOMY WITH j-pouch 1994,right knee arthroscopy, ileostomy 08-21-15. 09/16/16 rt kidney stent-since removed ,05-02-17 laser sx for kidney stones had stent since removed Past Anesthesia/Blood Transfusion Reactions: No Reported Reaction Past Psychological History: No Psychological Hx Reported Smoking Status: Former smoker Past Alcohol Use History: None Reported Past Drug Use History: None Reported - Past Family History Father Family Medical History: No Reported History Mother Family Medical History: Cancer Additional Family Medical History / Comment(s): cervical cancer General Exam Limitations: no limitations General appearance: alert, in no apparent distress Head exam: Present: atraumatic, normocephalic, normal inspection Eye exam: Present: normal appearance, PERRL, EOMI. Absent: conjunctival injection Pupils: Present: normal accommodation ENT exam: Present: normal exam, normal oropharynx, mucous membranes moist, TM's normal bilaterally, normal external ear exam Neck exam: Present: normal inspection, full ROM Cardiovascular Exam: Present: regular rate, normal rhythm, normal heart sounds GI/Abdominal exam: Present: soft, tenderness (Left lower quadrant), normal bowel sounds. Absent: guarding, mass, pulsatile mass Extremities exam: Present: normal inspection, full ROM, normal capillary refill Back exam: Present: normal inspection, full ROM, CVA tenderness (L). Absent: tenderness (No lumbar pain with palpation.), CVA tenderness (R) Neurological exam: Present: alert, oriented X3 Psychiatric exam: Present: normal affect, normal mood Skin exam: Present: warm, intact, normal color Course Vital Signs 12/07/18 12/08/18 19:37 00:20 Temperature 97.6 F 97.7 F Pulse Rate 88 88 Respiratory 18 17 Rate Blood Pressure 169/93 134/77 O2 Sat by Pulse 98 96 Oximetry Medical Decision Making - Medical Decision Making Patient is a 48-year-old female presenting to emergency Department with a chief complaint of abdominal pain. Patient reports the pain initially started in the left flank region and is now slowly progress to the left lower quadrant and radiates to the groin region. Patient does have a history of kidney stones and is report a history of gross hematuria approximately 2 days ago. Patient reports the pain comes and goes. Patient does report previous surgical history of cholecystectomy, appendectomy, colectomy and hysterectomy with bilateral salpingo-oophorectomy. Patient does have a colostomy bag which appears to be working properly according to the patient. CBC and CMP are unremarkable. UA is indicative of hematuria. No signs of UTI. Patient does have left CVA tenderness. Patient has an increase in the size of a renal stone up to 3 mm and the left kidney compared to 1 mm approximately one year ago. Patient also appears to have a 5.9 mm nonobstructing kidney stone in the right renal pelvis. There appears to be a prominence of the renal collecting system of the left asymmetrical to the right. Patient advised to follow-up with urology for further workup. Patient will be discharged with a Tylenol 3 starter pack and a prescription for Zofran. Strict return parameters were thoroughly discussed the patient was understanding and agreeable. Case discussed physician. - Lab Data Result diagrams: 12/07/18 21:48 12/07/18 21:48 Lab Results 12/07/18 12/07/18 12/07/18 Range/Units 20:44 21:48 21:48 WBC 7.7 (3.8-10.6) k/uL RBC 4.45 (3.80-5.40) m/uL Hgb 14.2 (11.4-16.0) gm/dL Hct 42.2 (34.0-46.0) % MCV 95.0 (80.0-100.0) fL MCH 31.9 (25.0-35.0) pg MCHC 33.5 (31.0-37.0) g/dL RDW 13.0 (11.5-15.5) % Plt Count 289 (150-450) k/uL Neutrophils % 58 % Lymphocytes % 33 % Monocytes % 5 % Eosinophils % 1 % Basophils % 1 % Neutrophils # 4.5 (1.3-7.7) k/uL Lymphocytes # 2.6 (1.0-4.8) k/uL Monocytes # 0.4 (0-1.0) k/uL Eosinophils # 0.1 (0-0.7) k/uL Basophils # 0.0 (0-0.2) k/uL Sodium 141 (137-145) mmol/L Potassium 3.9 (3.5-5.1) mmol/L Chloride 104 (98-107) mmol/L Carbon Dioxide 24 (22-30) mmol/L Anion Gap 13 mmol/L BUN 17 (7-17) mg/dL Creatinine 0.58 (0.52-1.04) mg/dL Est GFR (CKD-EPI)AfAm >90 (>60 ml/min/1.73 sqM) Est GFR (CKD-EPI)NonAf >90 (>60 ml/min/1.73 sqM) Glucose 118 H (74-99) mg/dL Calcium 9.9 (8.4-10.2) mg/dL Total Bilirubin 0.6 (0.2-1.3) mg/dL AST 44 H (14-36) U/L ALT 22 (9-52) U/L Alkaline Phosphatase 104 (38-126) U/L Total Protein 8.7 H (6.3-8.2) g/dL Albumin 4.7 (3.5-5.0) g/dL Amylase 56 (30-110) U/L Lipase 57 (23-300) U/L Urine Color Yellow Urine Appearance Cloudy H (Clear) Urine pH 5.5 (5.0-8.0) Ur Specific [place] 1.027 (1.001-1.035) Urine Protein 1+ H (Negative) Urine Glucose (UA) Negative (Negative) Urine Ketones Negative (Negative) Urine Blood Moderate H (Negative) Urine Nitrite Negative (Negative) Urine Bilirubin Negative (Negative) Urine Urobilinogen <2.0 (<2.0) mg/dL Ur Leukocyte Esterase Trace H (Negative) Urine RBC 141 H (0-5) /hpf Urine WBC 12 H (0-5) /hpf Ur Squamous Epith Cells 27 H (0-4) /hpf Urine Bacteria Occasional H (None) /hpf Urine Mucus Few H (None) /hpf Disposition Clinical Impression: Abdominal pain, Kidney stones Disposition: HOME SELF-CARE Condition: Stable Instructions (If sedation given, give patient instructions): Abdominal Pain (ED) Additional Instructions: Case follow-up with urology. Please return to emergency department symptoms worsen. Prescriptions: Ondansetron Odt [Zofran Odt] 4 mg PO Q8HR PRN #10 tab PRN Reason: Nausea Is patient prescribed a controlled substance at d/c from ED?: No Referrals: Yeimy Monson MD [Primary Care Provider] - 1-2 days Time of Disposition: 23:20
[2018-12-07 22:00] LABS: Basophils % (A) 1 %; Eosinophils # (A) 0.1 k/uL (0-0.7); Eosinophils % (A) 1 %; HCT 42.2 % (34.0-46.0); HGB 14.2 gm/dL (11.4-16.0); Lymphocytes # (A) 2.6 k/uL (1.0-4.8); Lymphocytes % (A) 33 %; MCH 31.9 pg (25.0-35.0); MCHC 33.5 g/dL (31.0-37.0); Mean Platelet Volume 6.3; Monocytes # (A) 0.4 k/uL (0-1.0); Monocytes % (A) 5 %; Neutrophils # (A) 4.5 k/uL (1.3-7.7); Neutrophils % (A) 58 %; Platelet Count 289 k/uL (150-450); RBC 4.45 m/uL (3.80-5.40); WBC 7.7 k/uL (3.8-10.6)
[2018-12-07 22:06] LABS: ALT 22 U/L (9-52); AST 44 U/L (14-36); African American GFR (CKD) >90 (>60 ml/min/1.73 sqM); Albumin 4.7 g/dL (3.5-5.0); Alkaline Phosphatase 104 U/L (38-126); Amylase 56 U/L (30-110); Anion Gap 13 mmol/L; Blood Urea Nitrogen 17 mg/dL (7-17); Calcium 9.9 mg/dL (8.4-10.2); Carbon Dioxide 24 mmol/L (22-30); Chloride 104 mmol/L (98-107); Glucose 118 mg/dL (74-99); Potassium 3.9 mmol/L (3.5-5.1); Sodium 141 mmol/L (137-145); Total Bilirubin 0.6 mg/dL (0.2-1.3); Total Protein 8.7 g/dL (6.3-8.2)
[2018-12-07] MEDS ORDERED: SODIUM CHLORIDE 0.9% 1,000 ML IV STA (22:18)
--- NOTE | 2018-12-07 22:29 | CT ---
EXAM: CT Abdomen and Pelvis Without Intravenous Contrast CLINICAL HISTORY: : Pain TECHNIQUE: Axial computed tomography images of the abdomen and pelvis without intravenous contrast. CTDI is 30.3 mGy and DLP is 1721 mGy-cm. This CT exam was performed using one or more of the following dose reduction techniques: automated exposure control, adjustment of the mA and/or kV according to patient size, and/or use of iterative reconstruction technique. COMPARISON: No relevant prior studies available. FINDINGS: Lung bases: Unremarkable. No mass. No consolidation. ABDOMEN: Liver: Unremarkable. Gallbladder and bile ducts: Unremarkable. No calcified stones. No ductal dilation. Pancreas: Unremarkable. No ductal dilation. Spleen: Unremarkable. No splenomegaly. Adrenals: Unremarkable. No mass. Kidneys and ureters: Bilateral nephrolithiasis with interval development of a 5.9 mm stone in the right renal pelvis there appears to be some mild prominence of the renal collecting system. The possibility of incompletely obstructing renal stone cannot be excluded. There are smaller nonobstructing calyceal stones measuring up to 3 mm on the left. Stomach and bowel: Unremarkable. No obstruction. No mucosal thickening. Post op Changes with Stable appearance to ostomy site. There is a peristomal hernia. No evidence for obstruction PELVIS: Appendix: Surgically absent Bladder: Unremarkable. No stones. Reproductive: Unremarkable as visualized. ABDOMEN and PELVIS: Intraperitoneal space: Unremarkable. No free air. No significant fluid collection. Bones/joints: No acute fracture. No dislocation. Soft tissues: Unremarkable. Vasculature: Unremarkable. No abdominal aortic aneurysm. Lymph nodes: Unremarkable. No enlarged lymph nodes. IMPRESSION: No acute abnormality demonstrated in the abdomen and pelvis note is made of interval development of a right renal pelvis calculus that measures 5. 9 cm. There appears to be prominence of the renal collecting system on the right asymmetric to the left. No definite hydronephrosis at this time. Clinical correlation required
[2018-12-07] MEDS ORDERED: ACET/COD 300 MG/30 MG STARTER PACK 6 TAB BTL PO STA (23:20)
[2018-12-08 00:21] VITALS: BP 134/77; RESP 17; TEMP 97.7
== END 2018-12-08 00:21 | disposition home or self-care (01) ==
LOC: EC 19:32
DX: N20.0 Calculus of kidney (principal); J45.909 Unspecified asthma, uncomplicated; Z87.891 Personal history of nicotine dependence; Z88.2 Allergy status to sulfonamides; Z88.6 Allergy status to analgesic agent; Z88.8 Allergy status to other drugs, medicaments and biological substances; Z91.041 Radiographic dye allergy status; Z91.048 Other nonmedicinal substance allergy status; Z79.51 Long term (current) use of inhaled steroids; Z79.899 Other long term (current) drug therapy; Z86.14 Personal history of Methicillin resistant Staphylococcus aureus infection; Z87.19 Personal history of other diseases of the digestive system; Z96.0 Presence of urogenital implants; Z85.9 Personal history of malignant neoplasm, unspecified; Z90.49 Acquired absence of other specified parts of digestive tract; Z90.710 Acquired absence of both cervix and uterus; Z90.722 Acquired absence of ovaries, bilateral; Z90.79 Acquired absence of other genital organ(s); Z93.3 Colostomy status
CPT/HCPCS: 99284; 96374; 96375; 96361; 36415; 80053; 82150; 83690; 85025; 81001; 87086; 74176; J2405; J1170

== ENCOUNTER → 2022-03-02 | Outpatient (CLI) | payer OTHER ==
[2022-03-02 18:14] LABS: Basophils # (A) 0 X 10*3/uL (0.00-0.10); Basophils % (A) 0 %; Eosinophils # (A) 0.02 X 10*3/uL (0.04-0.35); Eosinophils % (A) 0.3 %; HCT 43.7 % (37.2-46.3); HGB 13.8 g/dL (12.0-15.0); Immature Grans, Automated 0.3 %; Lymphocytes # (A) 2.55 X 10*3/uL (0.90-5.00); Lymphocytes % (A) 37.6 %; MCHC 31.6 g/dL (32.0-37.0); MCV 101.4 fL (80.0-97.0); Mean Platelet Volume 9.6 fL (9.5-12.2); Monocytes # (A) 0.58 X 10*3/uL (0.20-1.00); Monocytes % (A) 8.5 %; NRBC Per 100 WBC 0 /100 WBCS (0.0-0.0); Neutrophils # (A) 3.62 X 10*3/uL (1.80-7.70); Neutrophils % (A) 53.3 %; Platelet Count 262 X 10*3/uL (140-440); RBC 4.31 X 10*6/uL (4.10-5.20); RDW 12.4 % (11.5-14.5); WBC 6.79 X 10*3/uL (4.50-10.00)
[2022-03-02 18:35] LABS: Anion Gap 10.5 mmol/L (10.00-18.00); Carbon Dioxide 26.7 mmol/L (20.0-27.5); Potassium 4.3 mmol/L (3.5-5.5)
== END | disposition home or self-care (01) ==
LOC: LABPAT 10:36
PROVIDERS: ATTEND Orthopaedic Surgery Hand Surgery
DX: Z01.812 Encounter for preprocedural laboratory examination (principal); M18.11 Unilateral primary osteoarthritis of first carpometacarpal joint, right hand
CPT/HCPCS: 80051; 85025; 93005

== ENCOUNTER 2022-03-13 10:43 | Day surgery (SDC) | payer OTHER ==
--- NOTE | 2022-03-11 10:30 | P.HPOR ---
History of Present Illness H&P Date: 03/11/22 Chief Complaint: Right thumb CMC arthritis Subjective: This is a 50 year old female that presents today for follow up evaluation regarding worsening right hand/base of the thumb pain. She states she has pain with pinch, grasp and is losing strength due to the pain. She has tried tylenol with some relief. She denies any injury. She had an injection in June of 2021 which she states gave her good relief which lasted several months but her symptoms have returned. Physical Examination: RUE: AIN/PIN/Radial/Ulnar/Median motor intact. Radial/Ulnar/Median SILT. 2+/4 Radial/Ulnar pulses palpated. 5/5 APB, 5/5 FDI. Negative Finkelsteins, positive CMC grind, negative Durkan's compression. Imaging: X-Rays from June 2021 visit of the right thumb demonstrate thumb CMC joint arthritis Impression: 1.) Right thumb CMC arthritis, mild to moderate. Plan: Diagnosis and treatment options were discussed with the patient. She states her base of the thumb pain is now interfering with every day life and work and the injection only provided temporary relief. She states she would like to pursue surgical intervention in the form of right thumb basal joint arthroplasty. Risks and benefits of surgery including bleeding, infection, damage to surrounding tissue, need for further surgery, residual numbness were discussed and the patient wished to go forward with surgery. She works in [employer] and is given 2 weeks off of work post operatively which can be extended further if needed. We discussed the need for hand therapy post operatively and she is agreeable with this plan. -Stephen Snow DO Orthopedic Hand/Upper Extremity Surgeon Past Medical History Past Medical History: Asthma, Cancer, Diabetes Mellitus, GERD/Reflux, Hyperlipidemia, Hypertension, Osteoarthritis (OA), Sleep Apnea/CPAP/BIPAP Additional Past Medical History / Comment(s): ulcerative colitis, kidney stones, right bundle branch block. CPAP not used. hx skin cancer, cervical cancer, hasn't taken BP med in a long time, hx. of resting rapid heart rate per pt. History of Any Multi-Drug Resistant Organisms: MRSA Date of last positivie culture/infection: AUGUST 2015 MDRO Source:: SURGICAL SITE (ILEOSTOMY) Past Surgical History: Bowel Resection, Cholecystectomy, Hysterectomy Additional Past Surgical History / Comment(s): TOTAL COLECTOMY WITH j-pouch 1994,right knee arthroscopy, loop ileostomy 08-21-15. 09/16/16 rt kidney stent- since removed ,2 laser sx for kidney stones had stent since removed, right ulnar nerve surg. Past Anesthesia/Blood Transfusion Reactions: No Reported Reaction Smoking Status: Former smoker - Past Family History Father Family Medical History: No Reported History Mother Family Medical History: Cancer Additional Family Medical History / Comment(s): cervical cancer Medications and Allergies Home Medications Medication Instructions Recorded Confirmed Type Cetirizine HCl [Zyrtec] 10 mg PO DAILY 10/03/13 03/11/22 History Multivitamins, Thera [Multivitamin 1 tab PO DAILY 05/23/17 03/11/22 History (formulary)] Albuterol Sulfate [Proair Hfa] 1 - 2 puff INHALATION Q6HR PRN 12/07/18 03/11/22 History Budesonide/Formoterol Fumarate 2 puff INHALATION BID PRN 12/07/18 03/11/22 History [Symbicort 160-4.5 Mcg Inhaler] methocarbamoL [Robaxin-750] 750 mg PO TID PRN 12/07/18 03/11/22 History metFORMIN HCL [Glucophage] 500 mg PO BID 03/11/22 03/11/22 History Allergies Allergy/AdvReac Type Severity Reaction Status Date / Time adhesive Allergy Rash/Hives/ Verified 03/11/22 08:51 blisters aspirin Allergy SWELLING Verified 03/11/22 08:51 OF LIPS ibuprofen [From Motrin] Allergy ULCER IN J Verified 03/11/22 08:51 POUCH,DR TOLD NOT TO TAKE Iodinated Contrast Media Allergy Dyspnea Verified 03/11/22 08:51 [Iodinated Contrast Media - IV Dye] lorazepam [From Ativan] Allergy hives Verified 03/11/22 08:51 Sulfa (Sulfonamide Allergy Rash/Hives Verified 03/11/22 08:51 Antibiotics) Physical Examination Osteopathic Statement: *. No significant issues noted on an osteopathic structural exam other than those noted in the History and Physical/Consult.
[~2022-03-13 10:43] MED LIST changes: +DEXAMETHASONE SOD PHOSPHATE 4 MG/ML 1 ML VIAL IV ONE; +HYDROmorphone 0.5 MG/0.5 ML SYRINGE IVP PRN; +LIDOCAINE 1% (10MG/ML) FOR IV START INTRADERMA PRN; +ONDANSETRON 4 MG/2 ML VIAL IVP ONE; +fentaNYL (PF) 50 MCG/ML 2 ML AMP IVP PRN
[2022-03-13 12:02] LABS: Glucose,Whole Blood 124 mg/dL (70-110)
[2022-03-13] MEDS ORDERED: MIDAZOLAM 2 MG/2 ML VIAL IVP ONE (12:50)
[2022-03-13] MEDS ORDERED: LIDOCAINE 2% INJ 20 MG/ML (2 ML VIAL) ONE (13:51)
[2022-03-13] MEDS ORDERED: MIDAZOLAM 2 MG/2 ML VIAL ONE (13:51)
[2022-03-13] MEDS ORDERED: ROPIVACAINE 5 MG/ML 30 ML VIAL ONE (13:51)
[2022-03-13] MEDS ORDERED: PROPOFOL 10 MG/ML 20 ML VIAL IV ONE (13:51)
[2022-03-13] MEDS ORDERED: fentaNYL (PF) 50 MCG/ML 2 ML AMP ONE (13:51)
[2022-03-13] MEDS ORDERED: DEXAMETHASONE SOD PHOSPHATE 4 MG/ML 1 ML VIAL ONE (13:51)
[2022-03-13] MEDS ORDERED: PHENYLEPHRINE-0.9% NACL SYG 1,000 MCG/10 ML SYRINGE ONE (13:51)
--- NOTE | 2022-03-13 14:57 | P.ANPRN ---
Procedure Note - Anesthesia - Nerve Block Performed Right Axillary Single Date of Procedure: 03/13/22 Procedure Start Time: 13:00 Procedure Stop Time: 13:05 Location of Patient: PreOp Indication: Acute Post-Operative Pain Sedation Type: Sedate with meaningful contact maintained Preparation: Sterile Prep Position: Supine Needle Types: Pajunk Needle Gauge: 21 Ultrasound used to visualize needle placement: Yes Ultrasound used to observe medication spread: Yes Injectate: 0.5% Ropivacaine (see comment for volume) (20mL with 4mg Decadron) Blood Aspirated: No Pain Paresthesia on Injection Noted: No Resistance on Injection: Normal Image Stored and Saved: Yes Events: Uneventful and Well Tolerated
--- NOTE | 2022-03-13 15:09 | P.OP ---
Date of Procedure: 03/13/22 Preoperative Diagnosis: Right thumb CMC arthritis Postoperative Diagnosis: Right thumb CMC arthritis Procedure(s) Performed: Right thumb CMC basilar joint arthroplasty Implants: 3.5mm Arthrex SwiveLock Spring x 2 Anesthesia: regional Surgeon: Stephen Snow E [employer] Merchant #1: David Reyna Estimated Blood Loss (ml): 0 Pathology: none sent Condition: stable Disposition: PACU Description of Procedure: This is a 51 year old female who presents today for a right thumb CMC basal joint arthroplasty after having failed conservative treatment for severe thumb CMC arthritis. Risks and benefits of surgery were discussed with the patient including bleeding, damage to surrounding tissue, infection, need for further surgery as well as risks of anesthesia including pulmonary embolism and even and the patient wished to proceed with surgical intervention. The patients was seen in the pre-operative area by myself. Consent and H&P were completed and updated. The correct extremity was marked in the pre-operative area by myself and all other questions were answered. Patient received a upper extremity nerve block by the department of anesthesia. He then was brought to the operating room by the department of anesthesia. They remained on the portable stretcher and a rolling hand table was brought to the side of the operative extremity. The patient was then drifted off to sleep by the department of anesthesia. A nonsterile tourniquet was then applied to the operative extremity and the right upper extremity was then prepped and draped in normal sterile fashion. Pre-operative time out was performed indicating the correct patient, procedure and laterality. All in the room agreed. Pre-operative antibiotics were given prior to skin incision. The operative extremity was the exsanguinated with an esmarch bandage and the tourniquet was inflated to 250mmHg. Longitudinal incision was made over the left thumb CMC joint with a 15 blade scalpel. Blunt dissection was taken down to subcutaneous tissues with littler scissors taking care to preserve the branches of the superficial radial nerve. Dorsal radial artery was identified proximally in the incision and protected throughout the procedure. Scalpel was then made to incise the thumb CMC joint creating full thickness flaps off of the proximal metacarpal base and trapezium, this plane was further developed with a periosteal elevator. Elevator was then utilized to identify the thumb CMC joint and scaphotrapezial joint. McGlamory elevator was then used to excise the trapezium whole. Guidewire was then introduced down to the laser line at the base of the first metacarpal through the same incision and was over drilled. Another guidewire was then inserted at the radial base of the first metacarpal near the Insertion of APL and was then over drilled with normal drill guide. A 3.5mm Arthrex SwiveLock anchor was then inserted into the base of the first metacarpal. While holding the thumb in slight traction and full adduction, another 3.5mm Arthrex SwiveLock anchor was inserted into the base of the second metacarpal and the two strands of fibertape were centered across the first metacarpal base to create a sling around the base suspending the thumb metacarpal, good ayan purchase was appreciated. The thumb was successfully suspended and full ROM was achieved passively. Suture ends were cut and skin was closed with several interrupted 4-0 Monocryl sutures followed by a running 4-0 Nylon stitch. Sterile dressing consisting adaptic, 4x4s, cast padding, and a thumb spica plaster splint was applied. Tourniquet was let down and the hand had brisk cap refill and normal perfusion immediately. The patient was then woken by the department of anesthesia and transferred to PACU in stable condition. David STAPLETON was present for the case and assisted in major portions of procedure and protection of vital neurovascular structures. Stephen Snow D.O. Orthopedic Hand/Upper Extremity Surgeon
[2022-03-13 15:13] VITALS: TEMP 98.3
[2022-03-13 15:24] LABS: Glucose,Whole Blood 166 mg/dL (70-110)
[2022-03-13 16:46] VITALS: RESP 20
[2022-03-13 16:57] VITALS: BP 118/70; PULSE 90
== END 2022-03-13 16:57 | disposition home or self-care (01) ==
LOC: OR 10:43
PROVIDERS: ATTEND Orthopaedic Surgery Hand Surgery
DX: M18.11 Unilateral primary osteoarthritis of first carpometacarpal joint, right hand (principal); G89.18 Other acute postprocedural pain; J45.909 Unspecified asthma, uncomplicated; E11.9 Type 2 diabetes mellitus without complications; K21.9 Gastro-esophageal reflux disease without esophagitis; E78.5 Hyperlipidemia, unspecified; I10 Essential (primary) hypertension; M19.90 Unspecified osteoarthritis, unspecified site; G47.30 Sleep apnea, unspecified; I45.10 Unspecified right bundle-branch block; Z99.89 Dependence on other enabling machines and devices; Z98.84 Bariatric surgery status; Z90.49 Acquired absence of other specified parts of digestive tract; Z90.710 Acquired absence of both cervix and uterus; Z87.442 Personal history of urinary calculi; Z87.891 Personal history of nicotine dependence; Z80.8 Family history of malignant neoplasm of other organs or systems; Z79.84 Long term (current) use of oral hypoglycemic drugs; Z88.6 Allergy status to analgesic agent; Z91.048 Other nonmedicinal substance allergy status; Z88.2 Allergy status to sulfonamides; Z91.041 Radiographic dye allergy status; Z88.8 Allergy status to other drugs, medicaments and biological substances
CPT/HCPCS: 81025; 64415; 76942; 25447; C1713; J2250; J1100; J0690; J2405; J3010; J2795; J2370; J2704; J2001

== ENCOUNTER → 2022-04-22 | Outpatient (CLI) | payer OTHER ==
[2022-04-22 18:42] LABS: HCT 44.2 % (37.2-46.3); HGB 13.8 g/dL (12.0-15.0); MCH 31.3 pg (27.0-32.0); MCHC 31.2 g/dL (32.0-37.0); MCV 100.2 fL (80.0-97.0); Mean Platelet Volume 9.5 fL (9.5-12.2); NRBC Per 100 WBC 0 /100 WBCS (0.0-0.0); Platelet Count 229 X 10*3/uL (140-440); RBC 4.41 X 10*6/uL (4.10-5.20)
[2022-04-22 19:24] LABS: ALT 17 U/L (8-44); AST 23 U/L (13-35); African American GFR (CKD) 117.9 (60.0-200.0); Albumin 4.4 g/dL (3.8-4.9); Albumin/Globulin Ratio 1.37 (1.60-3.17); Alkaline Phosphatase 110 U/L (41-126); BUN/Creat Ratio 14.76 Ratio (12.00-20.00); Blood Urea Nitrogen 9.7 mg/dL (9.0-27.0); Calcium 9.6 mg/dL (8.7-10.3); Carbon Dioxide 20.2 mmol/L (20.0-27.5); Chloride 105 mmol/L (96-109); Chol/HDL Ratio 3.58 Ratio; Globulin 3.2 g/dL (1.6-3.3); Glucose 101 mg/dL (70-110); LDL Cholesterol,Calculated 115.8 mg/dL (0.0-131.0); Non-African American GFR(CKD) 101.7 (60.0-200.0); Potassium 4.2 mmol/L (3.5-5.5); Sodium 141 mmol/L (135-145); Total Protein 7.6 g/dL (6.2-8.2)
[2022-04-22 19:25] LABS: Thyroid Peroxidase Antibodies 10.3 U/mL (0.0-33.0)
[2022-04-22 23:12] LABS: ACTH 13.2 pg/mL (0.00-45.99)
== END | disposition home or self-care (01) ==
LOC: LABWHC1 11:06
PROVIDERS: ATTEND Internal Medicine Endocrinology, Diabetes & Metabolism
DX: E11.9 Type 2 diabetes mellitus without complications (principal); R53.83 Other fatigue
CPT/HCPCS: 36415; 80053; 80061; 82024; 82533; 82607; 84146; 84439; 84443; 84480; 85027; 86376

== ENCOUNTER → 2022-07-04 | Outpatient (CLI) | payer OTHER ==
--- NOTE | 2022-07-04 09:09 | MM ---
Reason for Exam: Screening (asymptomatic). Last mammogram was performed 1 year(s) and 1 month(s) ago. Patient History: Menarche at age 11. First Full-Term at age 29. Late child-bearing (after 29). Left ovary removed at age 39. Right ovary removed at age 39. Hysterectomy at age 39. Postmenopausal. Other cancer. Estrogen for 1 year from age 42 until age 43. Risk Values: Deja 5 year model risk: 1.5%. NCI Lifetime model risk: 11.8%. Prior Study Comparison: 06/29/2014 Left Diagnostic Mammogram, [facility] WITH [facility]. 02/19/2016 Bilateral Diagnostic Mammogram, [facility] WITH [facility]. 10/15/2018 Bilateral Screening Mammogram, [facility]ED WITH [facility]. 06/06/2020 Bilateral MG screening mammo w CAD - 2, [facility]. 06/14/2021 Bilateral MG screening mammo w CAD - 2, [facility]. Tissue Density: There are scattered fibroglandular densities. Findings: Analyzed By CAD. There is no suspicious group of microcalcifications or new suspicious mass in either breast. Overall Assessment: Negative, BI-RAD 1 Management: Screening Mammogram of both breasts in 1 year. A clinical breast exam by your physician is recommended on an annual basis and results should be correlated with mammographic findings. Electronically signed and approved by: Allen Chambers M.D. Radiologis
== END | disposition home or self-care (01) ==
LOC: RADMAMWWP 07:04
PROVIDERS: ATTEND Internal Medicine
DX: Z12.31 Encounter for screening mammogram for malignant neoplasm of breast (principal); Z78.0 Asymptomatic menopausal state
CPT/HCPCS: 77063; 77067

== ENCOUNTER 2023-09-29 15:07 | Emergency (ER) | payer OTHER ==
[2023-09-29 15:22] VITALS: RESP 18
--- NOTE | 2023-09-29 15:54 | ED ---
General Adult HPI - General Chief complaint: Back Pain/Injury Stated complaint: Back/Abd Pain, Dizziness Time Seen by Provider: 09/29/23 15:24 Source: patient, RN notes reviewed Mode of arrival: ambulatory Limitations: no limitations - History of Present Illness Initial comments: 53-year-old female presents to the emergency department for evaluation of left flank pain radiating to her abdomen. She states that this started last night with just the back pain. She notes that today while working she had discomfort going into her left sided groin. She also reports that she has been urinating less frequently than usual. She admits to nausea without vomiting. Denies fever, chills. Prior abdominal surgeries include cholecystectomy, internal J-tube placement, colostomy. - Related Data Home Medications Medication Instructions Recorded Confirmed Cetirizine HCl [Zyrtec] 10 mg PO DAILY 10/03/13 09/29/23 Multivitamins, Thera [Multivitamin 1 tab PO DAILY 05/23/17 09/29/23 (formulary)] EPINEPHrine (Auto Inject) [Epipen] 0.3 mg IM ONCE PRN 09/29/23 09/29/23 Tirzepatide [Mounjaro] 12.5 mg SQ WE 09/29/23 09/29/23 Previous Rx's Medication Instructions Recorded HYDROcodone/APAP 5-325MG [Secor 5] 1 each PO Q6HR PRN #12 tab 09/29/23 Ondansetron Odt [Zofran Odt] 4 mg PO Q8HR PRN #10 tab 09/29/23 Tamsulosin [Flomax] 0.4 mg PO DAILY #7 cap 09/29/23 Allergies Allergy/AdvReac Type Severity Reaction Status Date / Time adhesive Allergy Rash/Hives/ Verified 09/29/23 17:22 blisters aspirin Allergy SWELLING Verified 09/29/23 17:22 OF LIPS ibuprofen [From Motrin] Allergy ULCER IN J Verified 09/29/23 17:22 DR MELISA TOLD NOT TO TAKE Iodinated Contrast Media Allergy Dyspnea Verified 09/29/23 17:22 [Iodinated Contrast Media - IV Dye] lorazepam [From Ativan] Allergy hives Verified 09/29/23 17:22 Sulfa (Sulfonamide Allergy Rash/Hives Verified 09/29/23 17:22 Antibiotics) Review of Systems ROS Statement: Those systems with pertinent positive or pertinent negative responses have been documented in the HPI. ROS Other: All systems not noted in ROS Statement are negative. Past Medical History Past Medical History: Asthma, Cancer, Diabetes Mellitus, GERD/Reflux, Hyperlipidemia, Hypertension, Osteoarthritis (OA), Sleep Apnea/CPAP/BIPAP Additional Past Medical History / Comment(s): ulcerative colitis, kidney stones, right bundle branch block. Neck pain, CPAP not used.pt has been on a weight managment program thru [facility] since and has lost 60#-no longer on medications for bp, cholesterol or diabetes. History of Any Multi-Drug Resistant Organisms: MRSA Date of last positivie culture/infection: AUGUST 2015 MDRO Source:: SURGICAL SITE (ILEOSTOMY) Past Surgical History: Orthopedic Surgery Additional Past Surgical History / Comment(s): TOTAL COLECTOMY WITH j-pouch 1994,right knee arthroscopy, ileostomy 08-21-15. / rt kidney stent-since removed ,05-02-17 laser sx for kidney stones had stent since removed Past Anesthesia/Blood Transfusion Reactions: No Reported Reaction Past Psychological History: No Psychological Hx Reported Smoking Status: Never smoker Past Alcohol Use History: Rare Past Drug Use History: None Reported - Past Family History Father Family Medical History: No Reported History Mother Family Medical History: Cancer Additional Family Medical History / Comment(s): cervical cancer General Exam Limitations: no limitations General appearance: alert, in no apparent distress Head exam: Present: atraumatic, normocephalic, normal inspection Eye exam: Present: normal appearance, PERRL, EOMI. Absent: scleral icterus, conjunctival injection, periorbital swelling ENT exam: Present: normal exam, mucous membranes moist Neck exam: Present: normal inspection. Absent: tenderness, meningismus, lymphadenopathy Respiratory exam: Present: normal lung sounds bilaterally. Absent: respiratory distress, wheezes, rales, rhonchi, stridor Cardiovascular Exam: Present: regular rate, normal rhythm, normal heart sounds. Absent: systolic murmur, diastolic murmur, rubs, gallop, clicks GI/Abdominal exam: Present: soft, tenderness (Left lower abdominal), normal bowel sounds. Absent: distended, guarding, rebound, rigid Extremities exam: Present: normal inspection, full ROM, normal capillary refill. Absent: tenderness, pedal edema, joint swelling, calf tenderness Back exam: Present: CVA tenderness (L). Absent: CVA tenderness (R) Neurological exam: Present: alert, oriented X3 Psychiatric exam: Present: normal affect, normal mood Skin exam: Present: warm, dry, intact, normal color. Absent: rash Course Vital Signs 09/29/23 09/29/23 09/29/23 15:19 16:25 17:55 Temperature 97.9 F 97.8 F Pulse Rate 85 91 87 Respiratory 18 18 18 Rate Blood Pressure 132/84 126/78 115/70 O2 Sat by Pulse 99 97 98 Oximetry 09/29/23 09/29/23 18:11 19:01 Temperature 98.2 F 98.1 F Pulse Rate 61 68 Respiratory 18 18 Rate Blood Pressure 111/78 123/75 O2 Sat by Pulse 98 98 Oximetry Medical Decision Making - Medical Decision Making Was pt. sent in by a medical professional or institution (, PA, PROGRESS DEVELOPER, urgent care, hospital, or halfway...) When possible be specific @ -No Did you speak to anyone other than the patient for history (EMS, parent, family, police, friend...)? What history was obtained from this source @ -No Did you review nursing and triage notes (agree or disagree)? Why? @ -I reviewed and agree with nursing and triage notes Were old charts reviewed (outside hosp., previous admission, EMS record, old EKG, old radiological studies, urgent care reports/EKG's, halfway records)? Report findings @ -No old charts were reviewed Differential Diagnosis (chest pain, altered mental status, abdominal pain women, abdominal pain men, vaginal bleeding, weakness, fever, dyspnea, syncope, headache, dizziness, GI bleed, back pain, seizure, CVA, palpatations, mental health, musculoskeletal)? @ -Differential Abdominal Pain Women: Appendicitis, Cholecystitis, diverticulosis, ischemic bowel, pancreatitis, hepatitis, UTI, gastroenteritis, AAA, incarcerated hernia, bowel obstruction, constipation, inflammatory bowel, hepatitis, peptic ulcer disease, splenic infarction, perforated viscus, vulvitis, ovarian torsion, PID, kidney stone, placenta abruption, this is not meant to be an all-inclusive list EKG interpreted by me (3pts min.). @ -EKG at 1535 shows sinus rhythm rate 83, CA 161, QRS 83, QTQTc [id number] X-rays interpreted by me (1pt min.). @ -None done CT interpreted by me (1pt min.). @ -CT abdomen pelvis obtained shows a left-sided proximal ureteral stone measuring 6.2 mm U/S interpreted by me (1pt. min.). @ -None done What testing was considered but not performed or refused? (CT, X-rays, U/S, labs)? Why? @ -None What meds were considered but not given or refused? Why? @ -None Did you discuss the management of the patient with other professionals (professionals i.e. , PA, PROGRESS DEVELOPER, lab, RT, psych nurse, social work case manager, medical equipment repair technician, teacher, strategic debriefing officer, egg caser)? Give summary @ -No Was smoking cessation discussed for >3mins.? @ -No Was critical care preformed (if so, how long)? @ -No Were there social determinants of health that impacted care today? How? (Homelessness, low income, unemployed, alcoholism, drug addiction, transportation, low edu. Level, literacy, decrease access to med. care, fci, re hab)? @ -No Was there de-escalation of care discussed even if they declined (Discuss DNR or withdrawal of care, Hospice)? DNR status @ -No What co-morbidities impacted this encounter? (DM, HTN, Smoking, COPD, CAD, Cancer, CVA, ARF, Chemo, Hep., AIDS, mental health diagnosis, sleep apnea, morbid obesity)? @ -None Was patient admitted / discharged? Hospital course, mention meds given and route, prescriptions, significant lab abnormalities, going to OR and other pertinent info. @ -Discharged. Patient presented to the emergency department for evaluation of left-sided flank pain. Laboratory studies obtained. WBC unremarkable at 6.6; creatinine 0.58, lactic acid 1.7; UA shows no evidence of infectious process. CT abdomen pelvis obtained which shows a left-sided ureteral stone measuring 6.2 mm. Patient will be started on Flomax, medication for pain control, nausea control at home. Advised to follow-up with urology. She is understanding agreeable plan. Patient stable at time of discharge. Case discussed with Dr. Cunningham Undiagnosed new problem with uncertain prognosis? @ -No Drug Therapy requiring intensive monitoring for toxicity (Heparin, Nitro, Insulin, Cardizem)? @ -No Were any procedures done? @ -No Diagnosis/symptom? @ -Ureterolithiasis Acute, or Chronic, or Acute on Chronic? @ -acute Uncomplicated (without systemic symptoms) or Complicated (systemic symptoms)? @ -uncomplicated Side effects of treatment? @ -No Exacerbation, Progression, or Severe Exacerbation? @ -No Poses a threat to life or bodily function? How? (Chest pain, [place], [place], pneumonia, PE, COPD, DKA, ARF, appy, cholecystitis, CVA, Diverticulitis, Homicidal, Suicidal, threat to staff... and all critical care pts) @ -No - Lab Data Result diagrams: 09/29/23 16:01 09/29/23 16: Lab Results 09/29/23 09/29/23 09/29/23 Range/Units 16: 16: 16: WBC 6.6 (3.8-10.6) k/uL RBC 4.42 (3.80-5.40) m/uL Hgb 14.3 (11.4-16.0) gm/dL Hct 44.4 (34.0-46.0) % MCV 100.3 H (80.0-100.0) fL MCH 32.3 (25.0-35.0) pg MCHC 32.2 (31.0-37.0) g/dL RDW 12.6 (11.5-15.5) % Plt Count 270 (150-450) k/uL MPV 7.8 Neutrophils % 47 % Lymphocytes % 42 % Monocytes % 7 % Eosinophils % 0 % Basophils % 0 % Neutrophils # 3.1 (1.3-7.7) k/uL Lymphocytes # 2.8 (1.0-4.8) k/uL Monocytes # 0.5 (0-1.0) k/uL Eosinophils # 0.0 (0-0.7) k/uL Basophils # 0.0 (0-0.2) k/uL Sodium 141 (137-145) mmol/L Potassium 4.0 (3.5-5.1) mmol/L Chloride 111 H (98-107) mmol/L Carbon Dioxide 18 L (22-30) mmol/L Anion Gap 12 mmol/L BUN 19 H (7-17) mg/dL Creatinine 0.58 (0.52-1.04) mg/dL Est GFR (CKD-EPI)AfAm >90 (>60 ml/min/1.73 sqM) Est GFR (CKD-EPI)NonAf >90 (>60 ml/min/1.73 sqM) Glucose 86 (74-99) mg/dL Plasma Lactic Acid Dino (0.7-2.0) mmol/L Calcium 9.9 (8.4-10.2) mg/dL Total Bilirubin 0.6 (0.2-1.3) mg/dL AST 27 (14-36) U/L ALT 19 (4-34) U/L Alkaline Phosphatase 114 (38-126) U/L Total Protein 7.9 (6.3-8.2) g/dL Albumin 4.4 (3.5-5.0) g/dL Amylase 75 (30-110) U/L Lipase 101 (23-300) U/L Urine Color Yellow Urine Appearance Clear (Clear) Urine pH 6.0 (5.0-8.0) Ur Specific Catron 1.038 H (1.001-1.035) Urine Protein 1+ H (Negative) Urine Glucose (UA) Negative (Negative) Urine Ketones Negative (Negative) Urine Blood Negative (Negative) Urine Nitrite Negative (Negative) Urine Bilirubin Negative (Negative) Urine Urobilinogen <2.0 (<2.0) mg/dL Ur Leukocyte Esterase Small H (Negative) Urine RBC 4 (0-5) /hpf Urine WBC 12 H (0-5) /hpf Ur Squamous Epith Cells <1 (0-4) /hpf Urine Bacteria Rare H (None) /hpf Urine Mucus Moderate H (None) /hpf 09/29/23 Range/Units 16:01 WBC (3.8-10.6) k/uL RBC (3.80-5.40) m/uL Hgb (11.4-16.0) gm/dL Hct (34.0-46.0) % MCV (80.0-100.0) fL MCH (25.0-35.0) pg MCHC (31.0-37.0) g/dL RDW (11.5-15.5) % Plt Count (150-450) k/uL MPV Neutrophils % % Lymphocytes % % Monocytes % % Eosinophils % % Basophils % % Neutrophils # (1.3-7.7) k/uL Lymphocytes # (1.0-4.8) k/uL Monocytes # (0-1.0) k/uL Eosinophils # (0-0.7) k/uL Basophils # (0-0.2) k/uL Sodium (137-145) mmol/L Potassium (3.5-5.1) mmol/L Chloride (98-107) mmol/L Carbon Dioxide (22-30) mmol/L Anion Gap mmol/L BUN (7-17) mg/dL Creatinine (0.52-1.04) mg/dL Est GFR (CKD-EPI)AfAm (>60 ml/min/1.73 sqM) Est GFR (CKD-EPI)NonAf (>60 ml/min/1.73 sqM) Glucose (74-99) mg/dL Plasma Lactic Acid Dino 1.7 (0.7-2.0) mmol/L Calcium (8.4-10.2) mg/dL Total Bilirubin (0.2-1.3) mg/dL AST (14-36) U/L ALT (4-34) U/L Alkaline Phosphatase (38-126) U/L Total Protein (6.3-8.2) g/dL Albumin (3.5-5.0) g/dL Amylase (30-110) U/L Lipase (23-300) U/L Urine Color Urine Appearance (Clear) Urine pH (5.0-8.0) Ur Specific Catron (1.001-1.035) Urine Protein (Negative) Urine Glucose (UA) (Negative) Urine Ketones (Negative) Urine Blood (Negative) Urine Nitrite (Negative) Urine Bilirubin (Negative) Urine Urobilinogen (<2.0) mg/dL Ur Leukocyte Esterase (Negative) Urine RBC (0-5) /hpf Urine WBC (0-5) /hpf Ur Squamous Epith Cells (0-4) /hpf Urine Bacteria (None) /hpf Urine Mucus (None) /hpf Disposition Clinical Impression: Urolithiasis Disposition: HOME SELF-CARE Condition: Stable Instructions (If sedation given, give patient instructions): Ureteral Stones (ED) Additional Instructions: Please follow up with urology. Return to the emergency department for new or worsening symptoms. Prescriptions: Tamsulosin [Flomax] 0.4 mg PO DAILY #7 cap HYDROcodone/APAP 5-325MG [Secor 5] 1 each PO Q6HR PRN #12 tab PRN Reason: Pain Ondansetron Odt [Zofran Odt] 4 mg PO Q8HR PRN #10 tab PRN Reason: Nausea Is patient prescribed a controlled substance at d/c from ED?: Yes When asked, does pt state using other controlled substances?: No If prescribed controlled substance>3 days was MAPS reviewed?: Prescribed <3 Days Referrals: Yeimy Monson MD [Primary Care Provider] - 1-2 days Diego Banda MD [STAFF PHYSICIAN] - 1-2 days
[2023-09-29] MEDS: SODIUM CHLORIDE 0.9% 1,000 ML IV STA (16:20)
[2023-09-29] MEDS: HYDROmorphone 0.5 MG/0.5 ML SYRINGE IVP STA ×2 (16:20→17:55)
[2023-09-29 16:46] LABS: ALT 19 U/L (4-34); AST 27 U/L (14-36); African American GFR (CKD) >90 (>60 ml/min/1.73 sqM); Albumin 4.4 g/dL (3.5-5.0); Alkaline Phosphatase 114 U/L (38-126); Amylase 75 U/L (30-110); Anion Gap 12 mmol/L; Blood Urea Nitrogen 19 mg/dL (7-17); Calcium 9.9 mg/dL (8.4-10.2); Carbon Dioxide 18 mmol/L (22-30); Chloride 111 mmol/L (98-107); Glucose 86 mg/dL (74-99); Lipase 101 U/L (23-300); Non-African American GFR(CKD) >90 (>60 ml/min/1.73 sqM); Sodium 141 mmol/L (137-145); Total Bilirubin 0.6 mg/dL (0.2-1.3); Total Protein 7.9 g/dL (6.3-8.2)
--- NOTE | 2023-09-29 16:54 | CT ---
EXAMINATION TYPE: CT abdomen pelvis wo con DATE OF EXAM: 09/29/2023 HISTORY: Left flank pain radiating across lower abdomen x [address] DLP: 748.7 mGycm. Automated Exposure Control for Dose Reduction was Utilized. TECHNIQUE: CT scan of the abdomen and pelvis is performed without oral or IV contrast. COMPARISON: 12/17/2089 Findings: The visualized lung bases are clear. There is surgical absence of the gallbladder. There is no biliary ductal dilatation. There is no organomegaly of the liver, pancreas, spleen or adrenal glands. There are single bilateral nonobstructed 1 -2 mm renal calcifications. There is no definite hydroneph rosis. There is a 6.2 mm calcification the proximal left ureter The caliber of the abdominal aorta is normal and there is no retroperitoneal adenopathy or hemorrhage . The patient is status post colectomy. There are anastomotic sutures indicating rectal small bowel john stomosis. There is a large stable ventral hernia containing multiple small bowel loops with no eviden ce of strangulation or obstruction. There is no free intraperitoneal air or fluid There is no pelvic mass, free fluid, abscess or adenopathy. There is surgical absence of the uterus T he osseous structures and soft tissues are unremarkable. IMPRESSION: IMPRESSION: 1. 6.2 mm stone in the proximal left ureter without definite left hydronephrosis. 2. Single bilateral 1 to 2 mm nonobstructing renal calcifications. 3. Cholecystectomy, hysterectomy and colectomy 4.stable large ventral hernia containing small bowel loops without evidence of strangulation or obstr uction
[2023-09-29 17:02] LABS: Basophils % (A) 0 %; Eosinophils % (A) 0 %; HCT 44.4 % (34.0-46.0); HGB 14.3 gm/dL (11.4-16.0); Lymphocytes # (A) 2.8 k/uL (1.0-4.8); Lymphocytes % (A) 42 %; MCH 32.3 pg (25.0-35.0); MCHC 32.2 g/dL (31.0-37.0); MCV 100.3 fL (80.0-100.0); Mean Platelet Volume 7.8; Monocytes # (A) 0.5 k/uL (0-1.0); Monocytes % (A) 7 %; Neutrophils # (A) 3.1 k/uL (1.3-7.7); Neutrophils % (A) 47 %; Platelet Count 270 k/uL (150-450); RBC 4.42 m/uL (3.80-5.40); RDW 12.6 % (11.5-15.5); WBC 6.6 k/uL (3.8-10.6)
[2023-09-29 17:11] LABS: Appearance,Urine Clear (Clear); Bacteria,Urine Rare /hpf; Bilirubin,Urine Negative (Negative); Blood,Urine Negative (Negative); Color,Urine Yellow; Glucose,Urine (UA) Negative (Negative); Ketones,Urine Negative (Negative); Leukocyte Esterase,Urine Small (Negative); Mucus,Urine Moderate /hpf; Nitrite,Urine Negative (Negative); Protein,Urine 1+ (Negative); RBC,Urine 4 /hpf (0-5); Specific Gravity,Urine 1.038 (1.001-1.035); Squamous Epithelial Cell,Urine <1 /hpf (0-4); Urobilinogen,Urine <2.0 mg/dL (<2.0); WBC,Urine 12 /hpf (0-5)
[2023-09-29 19:03] VITALS: BP 123/75; PULSE 68; TEMP 98.1
== END 2023-09-29 19:03 | disposition home or self-care (01) ==
LOC: EC 15:07
DX: N20.9 Urinary calculus, unspecified (principal); Z88.2 Allergy status to sulfonamides; Z88.1 Allergy status to other antibiotic agents; Z88.6 Allergy status to analgesic agent; Z91.041 Radiographic dye allergy status
CPT/HCPCS: 36415; 93005; 80053; 82150; 83605; 83690; 85025; 81001; 87086; 74176; 99284; 96374; 96376; 96361; J1170

== ENCOUNTER → 2023-10-17 | Outpatient (CLI) | payer OTHER ==
--- NOTE | 2023-10-17 10:03 | US ---
EXAMINATION TYPE: US kidneys/renal and bladder DATE OF EXAM: 10/17/2023 COMPARISON: 09/29/2023. CLINICAL INDICATION: Female, 53 years old with history of N20.0 Calculus of kidney; Hx left kidney re nal stone. Abnormal CT. EXAM MEASUREMENTS: Right Kidney: 10.5 x 6.1 x 4.9 cm Left Kidney: 10.3 x 5.2 x 5.6 cm Right Kidney: Dromedary hump, no hydronephrosis or masses Left Kidney: Possible dilated renal pelvis. No hydronephrosis or lesions seen. Bladder: moderately distended, anechoic Bilateral Jets not seen There is no evidence for hydronephrosis at this point in time. No nephrolithiasis is seen, although there were 2 renal calculi seen on prior CT 09/29/2023.. No masses are identified. The urinary bladde r is anechoic. Bilateral ureteral jets are seen. IMPRESSION: 1. No evidence for obstructive uropathy. Stone in the left ureter on prior CT is actually within the left gonadal vein. 2. Calculi seen on prior CT May 24 not well appreciated.
--- NOTE | 2023-10-19 14:11 | MM ---
Reason for Exam: Screening (asymptomatic). Last mammogram was performed 1 year(s) and 3 month(s) ago. Patient History: Menarche at age 11. First Full-Term at age 29. Late child-bearing (after 29). Left ovary removed at age 39. Right ovary removed at age 39. Hysterectomy at age 39. Postmenopausal. Other cancer. Estrogen for 1 year from age 42 until age 43. Risk Values: Deja 5 year model risk: 1.6%. NCI Lifetime model risk: 11.4%. Prior Study Comparison: 06/06/2020 Bilateral MG screening mammo w CAD - 2, [facility]. 06/14/2021 Bilateral MG screening mammo w CAD - 2, [facility]. 07/04/2022 Bilateral MG 3D screening mammo w/cad, [facility]. Tissue Density: There are scattered areas of fibroglandular density. Findings: Analyzed By CAD. The pattern is symmetrical. Few benign scattered round calcifications are present. No significant interval change. No suspicious groups of microcalcifications, spiculated or lobular masses, architectural distortion or other secondary signs of malignancy are mammographically apparent. Overall Assessment: Benign, BI-RAD 2 Management: Screening Mammogram of both breasts in 1 year. A negative mammogram report should not preclude additional follow up of suspicious palpable abnormalities. Patient should continue monthly self breast exam. A clinical breast exam by your physician is recommended on an annual basis and results should be correlated with mammographic findings. Note on Deja scores and lifetime risk: 1. A Deja score greater than 3% is considered moderate risk. If this is the case, consider specialist referral to assess eligibility for a risk reducing agent. 2. If overall lifetime risk for the development of breast cancer is 20% or higher, the patient may qualify for future screening with alternating mammogram and breast MRI. Electronically signed and approved by: Israel Anderson D.O. Radiologis
== END | disposition home or self-care (01) ==
LOC: RADMAMWWP 07:54
PROVIDERS: ATTEND Internal Medicine
DX: Z12.31 Encounter for screening mammogram for malignant neoplasm of breast (principal); R92.323 Mammographic fibroglandular density, bilateral breasts; N20.2 Calculus of kidney with calculus of ureter; Z78.0 Asymptomatic menopausal state; Z90.721 Acquired absence of ovaries, unilateral
CPT/HCPCS: 76770; 77063; 77067

== ENCOUNTER 2024-06-14 13:54 | Emergency (ER) | payer OTHER ==
--- NOTE | 2024-06-14 14:19 | ED ---
Abdominal Pain HPI - General Source: patient Mode of arrival: ambulatory Limitations: no limitations <Milan Kerr - Last Filed: 06/14/24 14:16> - General Source: patient, RN notes reviewed Mode of arrival: ambulatory Limitations: no limitations <sEdras Porter - Last Filed: 06/14/24 19:13> - General Chief Complaint: Abdominal Pain Stated Complaint: Abd pain Time Seen by Provider: 06/14/24 14:08 - History of Present Illness Initial Comments: Quick note: This is a 53-year-old female with history of ileostomy presenting with abdominal pain (11/07) starting today. Patient states pain is constant, described as cramping with occasional stabbing at and below ileostomy site. Patient endorses noting some constant fluid drainage from the site, noting blood with blood clots when she attempted changing her ostomy bag. States fluid drainage has since resolved. Patient states she is feeling dehydrated with associated nausea. Endorses history of ostomy obstruction. Patient states she was advised by her PCP to go to the ER regarding symptoms. Endorses personal surgical procedure done at [facility] and has not had follow-up due to no issues with site until today. Endorses chronic ostomy herniation. (Milan Kerr) Patient is a 53-year-old female present to the emergency department with concerns with abdominal discomfort. Onset of symptoms was today. Patient did have increased amount of stool through her ostomy bag. Patient does have history of ostomy bag secondary to ulcerative colitis. Patient states she did notice some blood in the ostomy as well. Patient has had some abdominal discomfort since that time. Patient has some associated nausea. No fever. (Esdras Porter) - Related Data Home Medications Medication Instructions Recorded Confirmed Cetirizine HCl [Zyrtec] 10 mg PO DAILY 10/03/13 06/14/24 Acetaminophen Tab [Tylenol Tab] 1,000 mg PO Q6HR PRN 06/14/24 06/14/24 Fluticasone Nasal [place] [Flonase 1 spray EA NOSTRIL DAILY PRN 06/14/24 06/14/24 Nasal [place]] Tirzepatide [Mounjaro] 15 mg SQ TH 06/14/24 06/14/24 Allergies Allergy/AdvReac Type Severity Reaction Status Date / Time adhesive Allergy Rash/Hives/ Verified 06/14/24 15:24 blisters aspirin Allergy SWELLING Verified 06/14/24 15:24 OF LIPS ibuprofen [From Motrin] Allergy ULCER IN J Verified 06/14/24 15:24 DR MELISA TOLD NOT TO TAKE Iodinated Contrast Media Allergy Dyspnea Verified 06/14/24 15:24 [Iodinated Contrast Media - IV Dye] lorazepam [From Ativan] Allergy hives Verified 06/14/24 15:24 Sulfa (Sulfonamide Allergy Rash/Hives Verified 06/14/24 15:24 Antibiotics) Review of Systems ROS Other: All systems not noted in ROS Statement are negative. <Milan Kerr - Last Filed: 06/14/24 14:16> ROS Other: All systems not noted in ROS Statement are negative. Constitutional: Denies: fever Eyes: Denies: eye pain ENT: Denies: ear pain Respiratory: Denies: cough, dyspnea Gastrointestinal: Reports: as per HPI, abdominal pain, nausea Musculoskeletal: Denies: back pain <Esdras Porter - Last Filed: 06/14/24 19:13> ROS Statement: Those systems with pertinent positive or pertinent negative responses have been documented in the HPI. Past Medical History Past Medical History: Asthma, Cancer, Diabetes Mellitus, GERD/Reflux, Hyperlipidemia, Hypertension, Osteoarthritis (OA), Sleep Apnea/CPAP/BIPAP Additional Past Medical History / Comment(s): ulcerative colitis, kidney stones, right bundle branch block. Neck pain, CPAP not used.pt has been on a weight managment program thru [facility] since and has lost 60#-no longer on medications for bp, cholesterol or diabetes. History of Any Multi-Drug Resistant Organisms: MRSA Date of last positivie culture/infection: AUGUST 2015 MDRO Source:: SURGICAL SITE (ILEOSTOMY) Past Surgical History: Orthopedic Surgery Additional Past Surgical History / Comment(s): TOTAL COLECTOMY WITH j-pouch 1994,right knee arthroscopy, ileostomy 08-21-15. 09/16/16 rt kidney stent-since removed ,05-02-17 laser sx for kidney stones had stent since removed Past Anesthesia/Blood Transfusion Reactions: No Reported Reaction Past Psychological History: No Psychological Hx Reported Smoking Status: Never smoker Past Alcohol Use History: Rare Past Drug Use History: None Reported - Past Family History Father Family Medical History: No Reported History Mother Family Medical History: Cancer Additional Family Medical History / Comment(s): cervical cancer <Milan Kerr - Last Filed: 06/14/24 14:16> General Exam <Milan Kerr - Last Filed: 06/14/24 14:16> Limitations: no limitations General appearance: alert, in no apparent distress Head exam: Present: normocephalic Eye exam: Present: normal appearance Neck exam: Present: normal inspection Respiratory exam: Present: normal lung sounds bilaterally Cardiovascular Exam: Present: regular rate, normal rhythm GI/Abdominal exam: Present: soft, tenderness (Mild diffuse tenderness.), normal bowel sounds. Absent: distended, guarding, rebound, rigid, pulsatile mass Extremities exam: Present: normal inspection Neurological exam: Present: alert Psychiatric exam: Present: normal affect, normal mood Skin exam: Present: normal color <Esdras Porter - Last Filed: 06/14/24 19:13> - General Exam Comments Initial Comments: Visual Physical Exam Vital signs reviewed General: Well-appearing, nontoxic, no acute distress. Head: Normocephalic, atraumatic Eyes: PERRLA, EOMI ENT: Airway patent Chest: Nonlabored breathing Skin: No visual rash, normal skin tone Neuro: Alert and oriented 3 Musculoskeletal: No gross abnormalities (Milan Kerr) Course Vital Signs 06/14/24 14:22 Temperature 98.1 F Pulse Rate 102 H Respiratory 17 Rate Blood Pressure 126/84 O2 Sat by Pulse 98 Oximetry Medical Decision Making <Milan Kerr - Last Filed: 06/14/24 14:16> - Lab Data Result diagrams: 06/14/24 16:02 06/14/24 16:02 <Esdras Porter - Last Filed: 06/14/24 19:13> - Medical Decision Making I completed the quick note portion of this chart signed JAZMIN Ortez (Milan Kerr) Was pt. sent in by a medical professional or institution (PIETER Garcia, INTEGRITY DIRECTOR, urgent care, hospital, or intermediate...) When possible be specific @ -No Did you speak to anyone other than the patient for history (EMS, parent, family, police, friend...)? What history was obtained from this source @ -No Did you review nursing and triage notes (agree or disagree)? Why? @ -I reviewed and agree with nursing and triage notes Were old charts reviewed (outside hosp., previous admission, EMS record, old EKG, old radiological studies, urgent care reports/EKG's, intermediate records)? Report findings @ -No old charts were reviewed Differential Diagnosis (chest pain, altered mental status, abdominal pain women, abdominal pain men, vaginal bleeding, weakness, fever, dyspnea, syncope, headache, dizziness, GI bleed, back pain, seizure, CVA, palpatations, mental health, musculoskeletal)? @ -Differential Abdominal Pain Women: Appendicitis, Cholecystitis, diverticulosis, ischemic bowel, pancreatitis, hepatitis, UTI, gastroenteritis, AAA, incarcerated hernia, bowel obstruction, constipation, inflammatory bowel, hepatitis, peptic ulcer disease, splenic infarction, perforated viscus, vulvitis, ovarian torsion, PID, kidney stone, placenta abruption, this is not meant to be an all-inclusive list EKG interpreted by me (3pts min.). @ -As above X-rays interpreted by me (1pt min.). @ -None done CT interpreted by me (1pt min.). @ -CT scan abdomen pelvis shows stomal hernia. There is also some inflammation near the rectal region U/S interpreted by me (1pt. min.). @ -None done What testing was considered but not performed or refused? (CT, X-rays, U/S, labs)? Why? @ -None What meds were considered but not given or refused? Why? @ -None Did you discuss the management of the patient with other professionals (professionals i.e. , PA, INTEGRITY DIRECTOR, lab, RT, psych nurse, psychiatric social worker supervisor, hat forming machine feeder, teacher, child support officer, embedded case manager)? Give summary @ -No Was smoking cessation discussed for >3mins.? @ -No Was critical care preformed (if so, how long)? @ -No Were there social determinants of health that impacted care today? How? (Homelessness, low income, unemployed, alcoholism, drug addiction, transportation, low edu. Level, literacy, decrease access to med. care, correction, rehab)? @ -No Was there de-escalation of care discussed even if they declined (Discuss DNR or withdrawal of care, Hospice)? DNR status @ -No What co-morbidities impacted this encounter? (DM, HTN, Smoking, COPD, CAD, Cancer, CVA, ARF, Chemo, Hep., AIDS, mental health diagnosis, sleep apnea, morbi d obesity)? @ -None Was patient admitted / discharged? Hospital course, mention meds given and rout e, prescriptions, significant lab abnormalities, going to OR and other pertinent info. @ -Patient presents with abdominal discomfort and increased stool output with some bleeding. Patient did recheck her stoma without active bleeding. Patient reevaluated and resting comfortably in bed. Patient updated on results and need for follow-up. Patient is recommended to also have a local surgeon. Undiagnosed new problem with uncertain prognosis? @ -No Drug Therapy requiring intensive monitoring for toxicity (Heparin, Nitro, Insulin, Cardizem)? @ -No Were any procedures done? @ -No Diagnosis/symptom? @ -Abdominal pain Acute, or Chronic, or Acute on Chronic? @ -Acute Uncomplicated (without systemic symptoms) or Complicated (systemic symptoms)? @ -Default Side effects of treatment? @ -No Exacerbation, Progression, or Severe Exacerbation? @ -No Poses a threat to life or bodily function? How? (Chest pain, [place], VA, pneumonia, PE, COPD, DKA, ARF, appy, cholecystitis, CVA, Diverticulitis, Homicidal, Suicidal, threat to staff... and all critical care pts) @ -No (Esdras Porter) - Lab Data Lab Results 06/14/24 06/14/24 06/14/24 Range/Units 16:02 16:02 16:02 WBC 8.5 (3.8-10.6) k/uL RBC 4.74 (3.80-5.40) m/uL Hgb 15.6 (11.4-16.0) gm/dL Hct 47.3 H (34.0-46.0) % MCV 99.8 (80.0-100.0) fL MCH 32.8 (25.0-35.0) pg MCHC 32.9 (31.0-37.0) g/dL RDW 12.8 (11.5-15.5) % Plt Count 308 (150-450) k/uL MPV 7.1 Neutrophils % 64 % Lymphocytes % 29 % Monocytes % 4 % Eosinophils % 1 % Basophils % 0 % Neutrophils # 5.4 (1.3-7.7) k/uL Lymphocytes # 2.5 (1.0-4.8) k/uL Monocytes # 0.4 (0-1.0) k/uL Eosinophils # 0.1 (0-0.7) k/uL Basophils # 0.0 (0-0.2) k/uL Sodium 138 (137-145) mmol/L Potassium 4.7 (3.5-5.1) mmol/L Chloride 103 (98-107) mmol/L Carbon Dioxide 21 L (22-30) mmol/L Anion Gap 14 mmol/L BUN 13 (7-17) mg/dL Creatinine 0.71 (0.52-1.04) mg/dL Est GFR (CKD-EPI)AfAm >90 (>60 ml/min/1.73 sqM) Est GFR (CKD-EPI)NonAf >90 (>60 ml/min/1.73 sqM) Glucose 99 (74-99) mg/dL Plasma Lactic Acid Dino 1.7 (0.7-2.0) mmol/L Calcium 10.3 H (8.4-10.2) mg/dL Total Bilirubin 1.2 (0.2-1.3) mg/dL AST 26 (14-36) U/L ALT 18 (4-34) U/L Alkaline Phosphatase 103 (38-126) U/L Total Protein 9.2 H (6.3-8.2) g/dL Albumin 5.1 H (3.5-5.0) g/dL Amylase 75 (30-110) U/L Lipase 153 (23-300) U/L Disposition <Milan Kerr - Last Filed: 06/14/24 14:16> Is patient prescribed a controlled substance at d/c from ED?: No Time of Disposition: 19:13 <Esdras Porter - Last Filed: 06/14/24 19:13> Clinical Impression: Abdominal pain Disposition: HOME SELF-CARE Condition: Stable Instructions (If sedation given, give patient instructions): Abdominal Pain (ED) Additional Instructions: Please follow-up with primary care physician in the next couple of days for recheck. Please also follow-up with surgeon in the next couple of days for recheck, number provided. Return for increased pain, fever, bleeding, worsening or changing symptoms or any other concerns. Referrals: Yiemy Monson MD [Primary Care Provider] - 1-2 days Jamie Scott MD [STAFF PHYSICIAN] - 1-2 days Macy Arrington MD [STAFF PHYSICIAN] - 1-2 days
[2024-06-14 14:24] VITALS: TEMP 98.1
[2024-06-14] MEDS: methylPREDNISolone SOD SUCCI 125 MG/2 ML VIAL IV STA ×2 (16:09→16:13)
[2024-06-14] MEDS: diphenhydrAMINE 50 MG/ML 1 ML VIAL IVP STA (16:10)
[2024-06-14] MEDS: FAMOTIDINE 20 MG/2 ML VIAL IV STA (16:10)
[2024-06-14] MEDS: HYDROmorphone 1 MG/ML 1 ML SYRINGE IVP STA (16:10)
[2024-06-14 16:15] LABS: Basophils % (A) 0 %; Eosinophils # (A) 0.1 k/uL (0-0.7); Eosinophils % (A) 1 %; HCT 47.3 % (34.0-46.0); HGB 15.6 gm/dL (11.4-16.0); Lymphocytes # (A) 2.5 k/uL (1.0-4.8); Lymphocytes % (A) 29 %; MCH 32.8 pg (25.0-35.0); MCHC 32.9 g/dL (31.0-37.0); MCV 99.8 fL (80.0-100.0); Mean Platelet Volume 7.1; Monocytes # (A) 0.4 k/uL (0-1.0); Monocytes % (A) 4 %; Neutrophils # (A) 5.4 k/uL (1.3-7.7); Neutrophils % (A) 64 %; Platelet Count 308 k/uL (150-450); RBC 4.74 m/uL (3.80-5.40); RDW 12.8 % (11.5-15.5); WBC 8.5 k/uL (3.8-10.6)
[2024-06-14 16:24] LABS: ALT 18 U/L (4-34); AST 26 U/L (14-36); African American GFR (CKD) >90 (>60 ml/min/1.73 sqM); Albumin 5.1 g/dL (3.5-5.0); Alkaline Phosphatase 103 U/L (38-126); Amylase 75 U/L (30-110); Anion Gap 14 mmol/L; Blood Urea Nitrogen 13 mg/dL (7-17); Calcium 10.3 mg/dL (8.4-10.2); Carbon Dioxide 21 mmol/L (22-30); Chloride 103 mmol/L (98-107); Glucose 99 mg/dL (74-99); Lipase 153 U/L (23-300); Non-African American GFR(CKD) >90 (>60 ml/min/1.73 sqM); Potassium 4.7 mmol/L (3.5-5.1); Sodium 138 mmol/L (137-145); Total Bilirubin 1.2 mg/dL (0.2-1.3); Total Protein 9.2 g/dL (6.3-8.2)
--- NOTE | 2024-06-14 18:23 | CT ---
EXAMINATION TYPE: CT abdomen pelvis w con DATE OF EXAM: 06/14/2024 6:06 PM COMPARISON: CT abdomen pelvis most recent from 09/29/2023 CLINICAL INDICATION: Female, 53 years old with history of Pain at ostomy site, blood; Pain at ostomy site, blood TECHNIQUE: Axial CT abdomen pelvis w con;Sagittal and coronal reformats were created on a separate w orkstation. Contrast used:100ml mL of Isovue 300 with IV Contrast, (none if empty) Oral contrast used: without Oral Contrast (none if empty) CT DLP: 1337.5 mGycm, Automated exposure control for dose reduction was used. FINDINGS: LOWER CHEST: Unremarkable ABDOMEN LIVER: Diffusely hypoattenuating parenchyma. GALLBLADDER AND BILE DUCTS: The gallbladder is surgically absent. PANCREAS: Unremarkable. SPLEEN: Unremarkable. ADRENAL GLANDS: Unremarkable. KIDNEYS AND URETERS: No evidence of hydronephrosis or renal calculus. The ureters are unremarkable. PELVIS BLADDER: No evidence for wall thickening or mass given limitations of exam. REPRODUCTIVE: Unremarkable. ABDOMEN & PELVIS STOMACH AND BOWEL: No evidence of bowel obstruction. Ventral wall hernia parastomal hernia containing multiple loops of small bowel neck measuring up to 7.0 x 7.2 cm the neck.. Thomas 0.2 cm with mult iple loops of small bowel. No evidence for obstruction. No evidence for bowel wall thickening. Postsu rgical changes to the sigmoid colon with suture. Mesenteric lymph nodes measuring up to 11 mm. Series 201 image 56. r mild circumferential wall thickening of the sigmoid: Before the rectum measuring up to 10 mm. PERITONEUM/RETROPERITONEUM: No evidence of pneumoperitoneum or free fluid. VASCULATURE: No evidence of aortic aneurysm. MUSCULOSKELETAL: No acute osseous abnormalities LYMPH NODES: No gross evidence for lymphadenopathy. SOFT TISSUE/ABDOMINAL WALL: Ventral wall hernia containing multiple loops of small bowel. No evidence for obstruction. IMPRESSION: 1. Right anterior abdominal ostomy with parastomal hernia containing multiple loops of small bowel. No evidence for obstruction or wall thickening to suggest strangulation. 2. Mild rectal/sigmoid stump circumferential wall thickening a few mesenteric lymph nodes correlate with history. Findings infectious/inflammatory process. 3. Hepatic steatosis. [facility], , 06/14/2024 6:20 PM
[2024-06-14] MEDS: ACET/COD 300 MG/30 MG STARTER PACK 6 TAB BTL PO STA (19:29)
[2024-06-14 19:34] VITALS: BP 116/76; PULSE 92; RESP 18
== END 2024-06-14 19:33 | disposition home or self-care (01) ==
LOC: EC 13:54
DX: Z88.2 Allergy status to sulfonamides (principal); Z88.1 Allergy status to other antibiotic agents; Z88.6 Allergy status to analgesic agent; Z91.041 Radiographic dye allergy status; Z88.8 Allergy status to other drugs, medicaments and biological substances
CPT/HCPCS: 36415; 80053; 82150; 83605; 83690; 85025; 74177; 99284; 96374; 96375 ×3; J1200; J3490; J1171; Q9967; J2919

== ENCOUNTER 2024-07-07 07:57 | Day surgery (SDC) | payer OTHER ==
[2024-07-06 09:41] VITALS: BMI 36.2
[~2024-07-07 07:57] MED LIST changes: -DEXAMETHASONE SOD PHOSPHATE 4 MG/ML 1 ML VIAL IV ONE; -HYDROmorphone 0.5 MG/0.5 ML SYRINGE IVP PRN; -LIDOCAINE 1% (10MG/ML) FOR IV START INTRADERMA PRN; -ONDANSETRON 4 MG/2 ML VIAL IVP ONE; -fentaNYL (PF) 50 MCG/ML 2 ML AMP IVP PRN
[2024-07-07] MEDS: LACTATED RINGERS 1,000 ML IV ONE (08:19)
[2024-07-07 08:30] LABS: Glucose,Whole Blood 109 mg/dL (70-110)
[2024-07-07 08:32] VITALS: TEMP 97.5
[2024-07-07] MEDS ORDERED: PROPOFOL 10 MG/ML 20 ML VIAL IV ONE (08:47)
--- NOTE | 2024-07-07 09:04 | P.PCN ---
Date of Procedure: 07/07/24 Procedure(s) Performed: BRIEF HISTORY: Patient is a 53-year-old pleasant white female scheduled for an elective pouchoscopy as a part of evaluation of ileal pouch. History of ulcerative colitis for which she underwent a above-stated anastomosis in 1994. Subsequently in 2006 had bowel obstruction and hence had a diabetic ileostomy but still has the ileal pouch in place. Lately has been having pressure in the lower abdominal area and some discharge from the anus that is occasionally blood-tinged. She is scheduled for pouchoscopy today. PROCEDURE PERFORMED: Pouchoscopy with biopsy. PREOPERATIVE DIAGNOSIS: Rectal pressure and lower abdominal pain. IV sedation per Anesthesia. PROCEDURE: After informed consent was obtained, the patient, was brought into the endoscopy unit. IV sedation was administered by Anesthesia under continuous monitoring. Digital rectal examination was normal. Initially the Olympus CF-160 flexible video colonoscope was then inserted in the rectum, there was anal stenosis identified. This was dilated using middle finger. I was not able to advance a pediatric colonoscopy. At this time an upper endoscopy was advanced into the anus into the pouch and was advanced to almost 50 cm into the distal ileum. There is scattered erosions and ulcerations noted in the distal ileum and biopsies were done from this area. There was mucosal erythema friability noted involving the entire pouch and multiple biopsies were done from the pouch. There was some oozing noted at the site of dilation of the anal stenosis. Patient tolerated the procedure well. IMPRESSION: Anal stenosis status post dilation as described above Erythema and friability of the mucosa of the entire ileal pouch consistent with pouchitis status post multiple biopsies Scope advanced to 40 cm into the distal ileum there is scattered erosions identified s/p biopsy RECOMMENDATIONS: Findings of this examination were discussed with the patient as well as her family. She was advised to follow-up with the biopsy results.. She will be seen in the office in 2 weeks.
[2024-07-07 09:38] VITALS: BP 116/69; PULSE 85; RESP 16
== END 2024-07-07 09:48 | disposition home or self-care (01) ==
LOC: ORWHC2ENDO 07:57
PROVIDERS: ATTEND Internal Medicine Gastroenterology
DX: K91.850 Pouchitis (principal); K51.90 Ulcerative colitis, unspecified, without complications; E11.9 Type 2 diabetes mellitus without complications; K62.4 Stenosis of anus and rectum; I10 Essential (primary) hypertension; E78.5 Hyperlipidemia, unspecified; J45.909 Unspecified asthma, uncomplicated; G47.33 Obstructive sleep apnea (adult) (pediatric); M19.90 Unspecified osteoarthritis, unspecified site; Z99.89 Dependence on other enabling machines and devices; Z88.6 Allergy status to analgesic agent; Z98.890 Other specified postprocedural states; Z88.2 Allergy status to sulfonamides; Z88.8 Allergy status to other drugs, medicaments and biological substances; Z87.442 Personal history of urinary calculi; Z90.710 Acquired absence of both cervix and uterus; Z90.49 Acquired absence of other specified parts of digestive tract
CPT/HCPCS: 44386; J2704; 88305

== ENCOUNTER → 2024-08-10 | Outpatient (CLI) | payer OTHER ==
--- NOTE | 2024-08-10 09:18 | CT ---
EXAMINATION TYPE: CT Enterography DATE OF EXAM: 08/10/2024 9:01 AM COMPARISON: 06/14/2014 CLINICAL INDICATION: Female, 54 years old with history of K52.9 NONINFECTIVE GASTROENTERITIS AND COLI TIS, UN; Noninfective gastroenteritis and colitis, hx J pouch, ileostomy, herniation and presence of ulcers. TECHNIQUE: ENTEROGRAPHY PROTOCOL; Multiple thin slice millimeter images were obtained through the abd omen and pelvis following the administration of IV contrast material and Volumen oral contrast. Alberto nal reformats were also reconstructed. Contrast used:100 mL of Isovue 370 with IV Contrast, Oral contrast used: with Oral Contrast CT DLP: 3196.40 mGycm, Automated exposure control for dose reduction was used. FINDINGS: LOWER CHEST: No significant findings. ABDOMEN LIVER: Diffusely hypoattenuating parenchyma. GALLBLADDER AND BILE DUCTS: The gallbladder is surgically absent. PANCREAS: Unremarkable. SPLEEN: Unremarkable. ADRENAL GLANDS: Left adrenal 9 mm nodule in -12 Hounsfield units. Finding compatible with lipid rich adrenal adenoma. Up recommended. KIDNEYS AND URETERS: No evidence of hydronephrosis or obstructing renal calculus. The ureters are unr emarkable. Nonobstructing bilateral renal calculi measuring up to 3 mm. PELVIS BLADDER: Unremarkable REPRODUCTIVE: Unremarkable. ABDOMEN & PELVIS STOMACH AND BOWEL: Small hiatal hernia is present. No evidence of bowel obstruction. No evidence for bowel wall thickening. Postsurgical changes to the bowel and stomach. PERITONEUM/RETROPERITONEUM: No evidence of pneumoperitoneum or free fluid. VASCULATURE: No evidence of aortic aneurysm. MUSCULOSKELETAL: No acute osseous abnormalities. Moderate disc degeneration changes are present throu ghout the thoracolumbar spine. LYMPH NODES: No gross evidence for lymphadenopathy. SOFT TISSUE/ABDOMINAL WALL: Ventral wall hernia with ostomy present containing loops of bowel small n onenlarged. IMPRESSION 1. No evidence for active inflammation within the bowel. No evidence for bowel obstruction. No organ izing fluid collection. Postsurgical changes noted throughout the bowel and ventral wall parastomal h ernia containing loops of small bowel 2. Hepatic steatosis. 3. Post cholecystectomy changes. 4. Nonobstructing bilateral renal calculi. 5. Small hiatal hernia. [facility], , 08/10/2024 9:15 AM
== END | disposition home or self-care (01) ==
LOC: RADCTMAIN 07:05
PROVIDERS: ATTEND Internal Medicine Gastroenterology
DX: K52.9 Noninfective gastroenteritis and colitis, unspecified (principal); K76.0 Fatty (change of) liver, not elsewhere classified; Z90.49 Acquired absence of other specified parts of digestive tract; N20.0 Calculus of kidney; K44.9 Diaphragmatic hernia without obstruction or gangrene; Z98.890 Other specified postprocedural states; K43.5 Parastomal hernia without obstruction or gangrene; Z91.041 Radiographic dye allergy status
CPT/HCPCS: 74178; Q9967